=== PATIENT | male | born 1965 | race African-American/Black ===

== ENCOUNTER 2016-06-29 12:06 | Emergency (ER) | payer OTHER ==
[2016-06-29] MEDS ORDERED: LIDOCAINE-EPINEPH-TETRACAINE 3 ML SYRINGE TOP STA (13:46)
[2016-06-29] MEDS ORDERED: LIDOCAINE-EPINEPH-TETRACAINE 3 ML SYRINGE TOP ONE (14:05)
== END 2016-06-29 14:20 | disposition home or self-care (01) ==
DX: S09.90XA Unspecified injury of head, initial encounter (principal); S01.312A Laceration without foreign body of left ear, initial encounter; W24.0XXA Contact with lifting devices, not elsewhere classified, initial encounter; Y93.89 Activity, other specified; Y92.62 Dock or shipyard as the place of occurrence of the external cause; Y99.0 Civilian activity done for income or pay; R03.0 Elevated blood-pressure reading, without diagnosis of hypertension; M50.323 Other cervical disc degeneration at C6-C7 level; F17.200 Nicotine dependence, unspecified, uncomplicated
CPT/HCPCS: 1040M; 70450; 72125; 99283

== ENCOUNTER 2016-10-04 08:31 | Emergency (ER) | payer OTHER ==
--- NOTE | 2016-10-04 09:08 | ED Physician Documentation ---
PD HPI ABD PAIN - Stated complaint Stated Complaint: ABD,BACK PAIN - Chief complaint Chief Complaint: Abd Pain - History obtained from History obtained from: Patient - History of Present Illness Timing - onset: How many weeks ago (2-3 weeks of poor appetite, easy satiety, cramping upper abd pain with eating. This is worse the past few days and has noted 2 days of black/dark soft stools. No vomiting but has nausea. No fever.) Timing - details: Gradual onset, Still present (abruptly worse with GI bleeding the past 2 days.) Quality: Cramping, Aching, Pain Location: Epigastric, Periumbilical Radiation: No: Chest, Lower back, Upper back Improved by: Position. No: BM Worsened by: Eating, Position Associated symptoms: Nausea, Diarrhea, Melena, Loss of appetite (mild the past few weeks). No: Fever, Vomiting, Constipation, Hematochezia, Dysuria, Hematuria Similar symptoms before: Has not had sx before Recently seen: Not recently seen Review of Systems Constitutional: denies: Fever, Chills Nose: denies: Rhinorrhea / runny nose, Congestion Throat: denies: Sore throat Cardiac: denies: Chest pain / pressure Respiratory: denies: Dyspnea, Cough GI: reports: Abdominal Pain, Nausea, Bloody / black stool. denies: Abdominal Swelling, Vomiting : denies: Dysuria, Frequency Skin: denies: Rash, Lesions Musculoskeletal: denies: Neck pain, Back pain Neurologic: reports: Generalized weakness. denies: Focal weakness, Numbness, Near syncope Endocrine: reports: Weight loss. denies: Weight gain, Easy bruising / bleeding Immunocompromised: denies: Immunocompromised PD PAST MEDICAL HISTORY - Past Medical History Cardiovascular: None Respiratory: None Neuro: None Endocrine/Autoimmune: None GI: None, Other (denies history of liver disease, hepatitis, ulcers. ) - Past Surgical History Past Surgical History: No - Present Medications Home Medications: Ambulatory Orders Medication Instructions Recorded Confirmed No Known Home Medications [No 06/29/16 06/29/16 Known Home Medications] - Allergies Allergies/Adverse Reactions: Allergies Allergy/AdvReac Type Severity Reaction Status Date / Time No Known Drug Allergies Allergy Verified 06/29/16 12:33 - Social History Does the pt smoke?: Yes Smoking Status: Current every day smoker Does the pt drink ETOH?: Yes ETOH Use: Other (drinks beer occasionally, denies daily use) Does the pt have substance abuse?: No - Family History Family history: reports: Non contributory - Immunizations Immunizations are current?: Yes PD ED PE NORMAL - Vitals Vital signs reviewed: Yes - General General: Alert and oriented X 3, Well developed/nourished, Other (appears uncomfortable) - HEENT HEENT: PERRL (nonicteric), Ears normal, Pharynx benign. No: Moist mucous membranes - Neck Neck: Supple, no meningeal sign, No adenopathy, No JVD - Cardiac Cardiac: RRR (tachycardic), No murmur - Respiratory Respiratory: Clear bilaterally - Abdomen Abdomen: Soft, No organomegaly, Other (mild distension, with tenderness mid to upper abdomen. Decreased bowel sounds. ) - Male Male : Deferred - Rectal Rectal: Other (small external hemorrhoids, not thrombosed. Stool is soft in vault and is black to purple colored, obviously blood, strongly guiac positive. ) - Back Back: No CVA TTP - Derm Derm: Normal color, Warm and dry - Extremities Extremities: No tenderness to palpate, Normal ROM s pain, No edema, No calf tenderness / cord - Neuro Neuro: Alert and oriented X 3, No motor deficit, Normal speech - Psych Psych: Normal mood, Normal affect Results - Vitals Vitals: Vital Signs - 24 hr 10/04/16 10/04/16 10/04/16 08:34 10:30 11:52 Temperature 36.5 C Heart Rate 123 H 112 H 105 H Respiratory 18 18 18 Rate Blood Pressure 139/91 H 131/87 H 123/83 H O2 Saturation 100 97 100 10/04/16 13:34 Temperature Heart Rate 92 Respiratory 16 Rate Blood Pressure 128/94 H O2 Saturation 99 Oxygen O2 Source Room air - Labs Labs: Laboratory Tests 10/04/16 10/04/16 08:47 08:47 WBC 9.4 RBC 4.13 L Hgb 12.8 L Hct 37.5 L MCV 90.9 MCH 31.0 MCHC 34.1 RDW 14.0 Plt Count 210 MPV 8.4 Neut # 7.6 H Lymph # 0.9 L [place] # 0.9 Eos # 0.0 Baso # 0.0 Absolute Nucleated RBC 0.04 Nucleated RBCs 0.4 Sodium 136 Potassium 4.1 Chloride 101 Carbon Dioxide 23 Anion Gap 12.0 BUN 31 H Creatinine 1.4 H Estimated GFR (MDRD) 64 L Glucose 256 H Calcium 8.1 L Total Bilirubin 5.9 H AST 624 H ALT 675 H Alkaline Phosphatase 120 Total Protein 6.4 L Albumin 2.9 L Globulin 3.5 Albumin/Globulin Ratio 0.8 L Lipase 14 L - Rads (name of study) abd/pelvic CT Radiology: Prelim report reviewed, Discussed with rads (gastric mass, presume neoplasm. Adrenal adenoma (presume incidental). Liver appears normal. ) PD MEDICAL DECISION MAKING - ED course Complexity details: reviewed results, considered differential (concern for acute GI bleeding with melena. He is stable now (initial tachycardia though could be hydration too). Of concern is evaluation by CT shows gastric mass. This is still of concern for acute bleeding, but also has likelihood of needing gastric resection and oncologic approach. Also with elevated liver enzymes without obvious cause (not regular alcohol, not looking biliary on CT). 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 Talked with GI, then surgery at [facility], who defer to medical Hospitalist. Dr. White accepts transfer of the patient. ) Departure - Departure Disposition: 02 Transfer Acute Care Hosp Clinical Impression: Elevated liver enzymes, Acute upper GI bleeding, Gastric mass, Dehydration Condition: Stable Record reviewed to determine appropriate education?: Yes
[2016-10-04] MEDS ORDERED: FAMOTIDINE 20 MG/50 ML 50 ML IV ONE ×2 (09:32→09:41)
[2016-10-04] MEDS ORDERED: ONDANSETRON 4 MG/2 ML VIAL IVP STA (09:32)
[2016-10-04] MEDS ORDERED: MAG HYDROX/AL HYDROX/SIMETH 30 ML UDC PO STA (09:32)
[2016-10-04] MEDS ORDERED: HYDROmorphone 1 MG/ML SYRINGE IVP STA (09:32)
[2016-10-04] MEDS ORDERED: HYDROmorphone 1 MG/ML SYRINGE ONE (09:40)
[2016-10-04] MEDS ORDERED: MAG HYDROX/AL HYDROX/SIMETH 30 ML UDC ONE (09:40)
[2016-10-04] MEDS ORDERED: ONDANSETRON 4 MG/2 ML VIAL ONE (09:40)
[2016-10-04] MEDS ORDERED: SODIUM CHLORIDE 0.9% 1,000 ML IV ONE ×2 (10:04→13:29)
[2016-10-04 10:18] LABS: BASOPHILS % (AUTO) 0.5 %; EOSINOPHILS % (AUTO) 0.1 %; HCT - HEMATOCRIT 37.5 % (42.0-52.0); HGB - HEMOGLOBIN 12.8 g/dL (14.0-18.0); LYMPHOCYTES # (AUTO) 0.9 10^3/uL (1.5-3.5); LYMPHOCYTES % (AUTO) 9.2 %; MEAN CORPUSCULAR HGB CONC 34.1 g/dL (32.0-36.0); MEAN CORPUSCULAR VOLUME 90.9 fL (80.0-94.0); MEAN PLATELET VOLUME 8.4 fL (7.4-11.4); MONOCYTES # (AUTO) 0.9 10^3/uL (0.0-1.0); MONOCYTES % (AUTO) 9.2 %; NEUTROPHILS # (AUTO) 7.6 10^3/uL (1.5-6.6); NUCLEATED RED BLOOD CELLS AUTO 0.4 /100WBC; RED BLOOD COUNT 4.13 10^6/uL (4.70-6.10); UNCORRECTED WHITE BLOOD COUNT 9.4 x10^3/uL; WHITE BLOOD COUNT 9.4 x10^3/uL (4.8-10.8)
[2016-10-04 10:42] LABS: ALBUMIN/GLOBULIN RATIO 0.8 (1.0-2.2); BILIRUBIN,TOTAL 5.9 mg/dL (0.2-1.0); CALCIUM 8.1 mg/dL (8.5-10.3); CREATININE 1.4 mg/dL (0.6-1.2); POTASSIUM 4.1 mmol/L (3.5-5.0); TOTAL PROTEIN 6.4 g/dL (6.7-8.2)
--- NOTE | 2016-10-04 10:46 | CT Preliminary Report ---
Exam: CT Abdomen/Pelvis W/ Impression: Mass within the stomach. This may represent a gastrointestinal stromal tumor or other bay plastic process. This is unlikely to represent ingested material. Recommend GI consult for further ev aluation. Small left adrenal mass that most likely represents an adrenal adenoma. If there is a history of canc er, a dedicated CT of the adrenal glands may be beneficial. [facility] SITE ID: [id number]
--- NOTE | 2016-10-04 10:49 | CT Report ---
EXAM: CT ABDOMEN AND PELVIS EXAM DATE: 10/04/2016 10:17 AM. CLINICAL HISTORY: IV contrast, no oral. COMPARISONS: None. TECHNIQUE: Routine helical CT imaging was performed through the abdomen and pelvis. IV contrast: 100 cc of Isovue-300. Enteric contrast: No. Reconstructions: Coronal and sagittal. In accordance with CT protocol optimization, one or more of the following dose reduction techniques w ere utilized for this exam: automated exposure control, adjustment of mA and/or KV based on patient s ize, or use of iterative reconstructive technique. FINDINGS: The lung bases are without evidence of a mass or infiltrate. The liver is without evidence of an enhancing mass in the spleen, pancreas, and right adrenal gland a re normal in appearance and there is a small lesion in the left adrenal gland. It measures approximat rosaura 1.5 cm and 33 Hounsfield units. This most likely represents an adrenal adenoma. Kidneys are without evidence of an enhancing mass. There is no hydronephrosis. The appendix is normal in appearance. There is severe mass within the proximal stomach. It measures approximately 4.9 x 4.8 x 4.0 cm. This may represent a benign or malignant process. There are no dilated loops of bowel to suggest the presence of an obstruction. No mass or cyst is see n within the pelvis. No focal bony lesion is identified. Impression: Mass within the stomach. This may represent a gastrointestinal stromal tumor or other bay plastic process. This is unlikely to represent ingested material. Recommend GI consult for further ev aluation. Small left adrenal mass that most likely represents an adrenal adenoma. If there is a history of canc er, a dedicated CT of the adrenal glands may be beneficial. [facility] Referring Provider Line: [phone] SITE ID: [id number]
[2016-10-04] MEDS ORDERED: KETOROLAC 30 MG/ML VIAL ONE (11:12)
[2016-10-04] MEDS ORDERED: KETOROLAC 60 MG/2 ML VIAL IVP STA (11:12)
[2016-10-04 15:52] VITALS: BP 123/67
[2016-10-04] MEDS ORDERED: IOPAMIDOL-300 100 ML VIAL IVP ONE (22:14)
== END 2016-10-04 16:57 | disposition short-term general hospital (02) ==
LOC: ED 08:31
DX: E86.0 Dehydration (principal); K92.2 Gastrointestinal hemorrhage, unspecified; R19.06 Epigastric swelling, mass or lump; R74.8 Abnormal levels of other serum enzymes; F17.200 Nicotine dependence, unspecified, uncomplicated
CPT/HCPCS: 36415; 74177; 80053; 83690; 85025; 96361; 96374; 96375; 99284; 99285; A9270; Q9967

== ENCOUNTER 2016-10-04 16:55 | Outpatient (CLI) | payer SELFPAY | END 2016-10-04 16:56 | disposition home or self-care (01) | LOC: EMS 16:55 | PROVIDERS: ATTEND Surgery | DX: K92.2 Gastrointestinal hemorrhage, unspecified (principal) | CPT/HCPCS: A0425; A0426 ==

== ENCOUNTER 2016-10-12 09:40 | Emergency (ER) | payer SELFPAY ==
[2016-10-12 11:48] LABS: BASOPHILS % (AUTO) 0.3 %; EOSINOPHILS % (AUTO) 0.4 %; LYMPHOCYTES % (AUTO) 18.4 %; MEAN CORPUSCULAR HEMOGLOBIN 31.9 pg (27.0-31.0); MEAN CORPUSCULAR HGB CONC 31.8 g/dL (32.0-36.0); MEAN CORPUSCULAR VOLUME 100.3 fL (80.0-94.0); MEAN PLATELET VOLUME 6.8 fL (7.4-11.4); MONOCYTES % (AUTO) 13.3 %; NEUTROPHILS % (AUTO) 67.6 %; RED CELL DISTRIBUTION WIDTH 17.7 % (12.0-15.0); UNCORRECTED WHITE BLOOD COUNT 9.9 x10^3/uL; WHITE BLOOD COUNT 9.9 x10^3/uL (4.8-10.8)
[2016-10-12 11:50] LABS: HCT - HEMATOCRIT 19.1 % (42.0-52.0); HGB - HEMOGLOBIN 6.1 g/dL (14.0-18.0)
[2016-10-12 11:52] LABS: CALCIUM 8.1 mg/dL (8.5-10.3); CREATININE 0.7 mg/dL (0.6-1.2); POTASSIUM 3.1 mmol/L (3.5-5.0)
--- NOTE | 2016-10-12 11:52 | ED Physician Documentation ---
History of Present Illness - Stated complaint Stated Complaint: SWELLING - Chief complaint Chief Complaint: General - Additonal information Additional information: hx from pt and previously healthy 51 male seen in our ER 10/04 for melena, CT showed a gastric mass, pt was tranbsferred to [facility] and says he had CT scans and was dced on irona and prilosec dc on 10/05 10/06 he developed rapid palpitations and L shoulder pain when he walked around better with rest lasting a few min at a time not SOA no fever cough also his arms and legs have been swollen Review of Systems Constitutional: denies: Fever, Chills Cardiac: reports: Chest pain / pressure (L shoulder), Palpitations Respiratory: denies: Dyspnea, Cough GI: denies: Abdominal Pain, Nausea, Vomiting Musculoskeletal: reports: Extremity swelling Endocrine: denies: Easy bruising / bleeding Immunocompromised: denies: Immunocompromised PD PAST MEDICAL HISTORY - Past Medical History Cardiovascular: None Respiratory: None Neuro: None Endocrine/Autoimmune: None GI: None, Other (denies history of liver disease, hepatitis, ulcers. ) - Past Surgical History Past Surgical History: No - Present Medications Home Medications: Ambulatory Orders Medication Instructions Recorded Confirmed Ferrous Sulfate 1 tab PO DAILY 10/12/16 10/12/16 Omeprazole [PriLOSEC] 1 tab PO DAILY 10/12/16 10/12/16 - Allergies Allergies/Adverse Reactions: Allergies Allergy/AdvReac Type Severity Reaction Status Date / Time No Known Drug Allergies Allergy Verified 10/12/16 09:46 - Social History Does the pt smoke?: Yes Smoking Status: Current every day smoker Does the pt drink ETOH?: Yes Does the pt have substance abuse?: No - Immunizations Immunizations are current?: Yes PD ED PE NORMAL - Vitals Vital signs reviewed: Yes - General General: Alert and oriented X 3 - Cardiac Cardiac: RRR - Respiratory Respiratory: No respiratory distress - Abdomen Abdomen: Soft, Non tender - Derm Derm: Normal color - Extremities Extremities: Other (mild to moderate edema of arms and legs) - Neuro Neuro: Alert and oriented X 3, No motor deficit Results - Vitals Vitals: Vital Signs - 24 hr 10/12/16 10/12/16 10/12/16 09:43 12:13 13:14 Temperature 36.3 C L Heart Rate 89 76 78 Respiratory 18 16 14 Rate Blood Pressure 142/91 H 122/75 122/75 O2 Saturation 98 100 96 10/12/16 10/12/16 10/12/16 14:01 15:53 16:52 Temperature 37.2 C 37.1 C Heart Rate 79 86 100 Respiratory 16 20 18 Rate Blood Pressure 125/82 H 128/84 H 150/91 H O2 Saturation 99 100 100 10/12/16 17:07 Temperature 37.2 C Heart Rate 101 H Respiratory 16 Rate Blood Pressure 126/82 H O2 Saturation 100 Oxygen O2 Source Room air - EKG (time done) 1149 Rate: Rate (enter#) Rhythm: NSR Ischemia: Non specific changes (slight TWI across precordial leads) - Labs Labs: Laboratory Tests 10/12/16 10/12/16 10/12/16 11:35 11:35 11:35 WBC 9.9 RBC 1.90 L Hgb 6.1 L* Hct 19.1 L* MCV 100.3 H MCH 31.9 H MCHC 31.8 L RDW 17.7 H Plt Count 343 MPV 6.8 L Neut # Not Reportable Lymph # Not Reportable [place] # Not Reportable Eos # Not Reportable Baso # Not Reportable Absolute Nucleated RBC Not Reportable Total Counted 100 Band Neuts % (Manual) 7 Metamyelocytes % 1 H Neutrophils # (Manual) 7.5 H Lymphocytes # (Manual) 2.0 Monocytes # (Manual) 0.3 Nucleated RBCs 3 Differential Comment MANUAL DIFFERENTIAL Platelet Estimate NORMAL (130-450,000) Platelet Morphology NORMAL APPEARANCE RBC Morph Micro Appear 2+ SCHISTOCYTES Sodium 138 Potassium 3.1 L Chloride 104 Carbon Dioxide 25 Anion Gap 9.0 BUN 9 Creatinine 0.7 Estimated GFR (MDRD) 143 Glucose 136 H Calcium 8.1 L Troponin I < 0.04 B-Natriuretic Peptide Blood Type Blood Type Recheck Antibody Screen Crossmatch IS Only 10/12/16 10/12/16 10/12/16 11:35 14:10 15:53 WBC RBC Hgb Hct MCV MCH MCHC RDW Plt Count MPV Neut # Lymph # [place] # Eos # Baso # Absolute Nucleated RBC Total Counted Band Neuts % (Manual) Metamyelocytes % Neutrophils # (Manual) Lymphocytes # (Manual) Monocytes # (Manual) Nucleated RBCs Differential Comment Platelet Estimate Platelet Morphology RBC Morph Micro Appear Sodium Potassium Chloride Carbon Dioxide Anion Gap BUN Creatinine Estimated GFR (MDRD) Glucose Calcium Troponin I B-Natriuretic Peptide 289 H Blood Type O POSITIVE Blood Type Recheck O POSITIVE Antibody Screen NEGATIVE Crossmatch IS Only See Detail PD MEDICAL DECISION MAKING - ED course ED course: pt has dropped his hgb to 6 although his EKG and trop are non specific and neg respectively, his L shoulder pain and palp with exertion are likely anginal reviewed records from [facility] - pt had EGD which showed 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 and there was still a concern for malignancy and surgical resection was rec but felt safe to defer to future date , pt Hgb dropped from 12 in our ER to 8.3 prior to dc, was not seen to have more bleeding, was txed with IV iron and was dced on iron and PPI unfortunately it seems he has bled more and is now symptomatically anemic with anginal sx will need transfer back to tertiary care Departure - Departure Disposition: 02 Transfer Acute Care Hosp Clinical Impression: Gastric mass Profound anemia Qualifiers: Anemia type: other cause Other causes of anemia: acute posthemorrhagic Qualified Code(s): D62 - Acute posthemorrhagic anemia GI bleed Qualifiers: GI bleed type/associated pathology: gastritis Gastritis type: other gastritis Qualified Code(s): K29.61 - Other gastritis with bleeding Chest pain Qualifiers: Chest pain type: unspecified Qualified Code(s): R07.9 - Chest pain, unspecified Condition: Serious Discharge Date/Time: 10/12/16 17:12
--- NOTE | 2016-10-12 12:18 | XRAY Preliminary Report ---
Exam: XR Chest 2 View PA/LAT IMPRESSION: Normal 2-view chest radiography. [facility] SITE ID: [id number]
--- NOTE | 2016-10-12 12:20 | XRAY Report ---
EXAM: CHEST RADIOGRAPHY EXAM DATE: 10/12/2016 11:52 AM. CLINICAL HISTORY: Left shoulder pain and shortness of breath for 4 days COMPARISON: None. TECHNIQUE: 2 views. FINDINGS: Lungs/Pleura: No focal opacities evident. No pleural effusion. No pneumothorax. Normal volumes. Mediastinum: Heart and mediastinal contours are unremarkable. Other: None. IMPRESSION: Normal 2-view chest radiography. [facility] Referring Provider Line: [phone] SITE ID: [id number]
[2016-10-12 12:37] LABS: BAND NEUTROPHILS % (MANUAL) 7 %; LYMPHOCYTES % (MANUAL) 20 %; NEUTROPHILS % (MANUAL) 69 %; TOTAL CELLS COUNTED 100
[2016-10-12 12:41] LABS: NP AUTO DIFFERENTIAL? YES; NP MAN DIFFERENTIAL? NO; PLATELET ESTIMATE, MANUAL NORMAL (130-450,000) (NORMAL); PLATELET MORPHOLOGY NORMAL APPEARANCE (NORMAL)
[2016-10-12 17:08] VITALS: BP 126/82
== END 2016-10-12 17:12 | disposition short-term general hospital (02) ==
LOC: ED 09:40
DX: R19.06 Epigastric swelling, mass or lump (principal); K92.2 Gastrointestinal hemorrhage, unspecified; D50.0 Iron deficiency anemia secondary to blood loss (chronic); F17.200 Nicotine dependence, unspecified, uncomplicated
CPT/HCPCS: 36415; 36430; 71020; 80048; 83880; 84484; 85025; 86850; 86900; 86901; 86920; 93005; 93010; 99284; P9016

== ENCOUNTER 2016-10-12 17:14 | Outpatient (CLI) | payer SELFPAY | END 2016-10-12 17:15 | disposition short-term general hospital (02) | LOC: EMS 17:14 | PROVIDERS: ATTEND Surgery | DX: K92.2 Gastrointestinal hemorrhage, unspecified (principal); R19.00 Intra-abdominal and pelvic swelling, mass and lump, unspecified site | CPT/HCPCS: A0425; A0426 ==

== ENCOUNTER 2020-06-07 09:32 | Outpatient (CLI) | payer MEDICAID ==
[2020-06-07 09:57] LABS: BASOPHILS # (AUTO) 0.1 10^3/uL (0.0-0.1); EOSINOPHILS # (AUTO) 0.2 10^3/uL (0.0-0.7); EOSINOPHILS % (AUTO) 2.9 %; HGB - HEMOGLOBIN 13.5 g/dL (14.0-18.0); LYMPHOCYTES # (AUTO) 1.8 10^3/uL (1.5-3.5); LYMPHOCYTES % (AUTO) 26.4 %; MEAN CORPUSCULAR HEMOGLOBIN 29.7 pg (27.0-31.0); MEAN CORPUSCULAR HGB CONC 31.3 g/dL (32.0-36.0); MEAN CORPUSCULAR VOLUME 94.9 fL (80.0-94.0); MONOCYTES # (AUTO) 0.6 10^3/uL (0.0-1.0); NEUTROPHILS # (AUTO) 4.2 10^3/uL (1.5-6.6); NEUTROPHILS % (AUTO) 60.4 %; PLT - PLATELET COUNT 332 10^3/uL (130-450); RED BLOOD COUNT 4.55 10^6/uL (4.70-6.10); RED CELL DISTRIBUTION WIDTH 13.1 % (12.0-15.0); WHITE BLOOD COUNT 6.9 x10^3/uL (4.8-10.8)
[2020-06-07 10:14] LABS: ALBUMIN 4.1 g/dL (3.2-5.5); ALKALINE PHOSPHATASE 109 IU/L (42-121); ALT ALANINE AMINOTRANSFERASE 36 IU/L (10-60); AST ASPARTATE AMINOTRANSFERASE 37 IU/L (10-42); BILIRUBIN,TOTAL 0.8 mg/dL (0.2-1.0); BUN - BLOOD UREA NITROGEN 13 mg/dL (6-20); CALCIUM 9.5 mg/dL (8.5-10.3); CARBON DIOXIDE - CO2 28 mmol/L (21-32); CHLORIDE 103 mmol/L (101-111); CHOL/HDL RATIO 2.9 (<5.0); CHOLESTEROL 219 mg/dL; CREATININE 0.9 mg/dL (0.6-1.2); GLUCOSE 118 mg/dL (70-100); HDL CHOLESTEROL 75 mg/dL; LDL CHOLESTEROL,CALCULATED 120 mg/dL; LDL/HDL RATIO 1.6 (<3.6); TOTAL PROTEIN 8.1 g/dL (6.7-8.2); VLDL CHOLESTEROL 24 mg/dL
== END 2020-06-07 09:33 | disposition home or self-care (01) ==
LOC: LAB 09:32
PROVIDERS: ATTEND Physician Assistant
DX: R25.2 Cramp and spasm (principal); I10 Essential (primary) hypertension; E66.9 Obesity, unspecified
CPT/HCPCS: 36415; 80053; 80061; 83721; 84153; 84443; 85025

== ENCOUNTER 2020-06-19 06:59 | Emergency (ER) | payer MEDICAID ==
[2020-06-19] MEDS ORDERED: CHERRY SYRUP 10 ML UDC PO ONE (07:57)
[2020-06-19] MEDS ORDERED: DEXAMETHASONE 10 MG/ML VIAL PO STA (07:57)
--- NOTE | 2020-06-19 08:04 | ED Physician Documentation ---
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 He has had migrating hives and denies any shortness of breath he stopped his medications 2 days ago he continues to have some hives migrating and he has come to the emergency department now for evaluation. He almost came in the middle of the night when his feet were itching so bad. Review of Systems Constitutional: denies: Fever Eyes: denies: Decreased vision Ears: denies: Ear pain Nose: denies: Congestion Throat: denies: Sore throat Cardiac: denies: Chest pain / pressure, Palpitations Respiratory: denies: Dyspnea, Cough GI: denies: Abdominal Pain, Nausea, Vomiting, Diarrhea : denies: Dysuria, Frequency Skin: reports: Rash Musculoskeletal: denies: Neck pain, Back pain, Extremity pain Neurologic: denies: Generalized weakness, Focal weakness, Numbness PD PAST MEDICAL HISTORY - Past Medical History Past Medical History: Yes Cardiovascular: Hypertension Respiratory: None Neuro: None Endocrine/Autoimmune: None GI: None, Other : None HEENT: None Psych: None Musculoskeletal: None Derm: None - Past Surgical History Past Surgical History: No - Present Medications Home Medications: Ambulatory Orders Medication Instructions Recorded Confirmed Losartan [Cozaar] 50 mg PO DAILY 06/19/20 06/19/20 Pantoprazole [Protonix] 20 mg PO DAILY 06/19/20 06/19/20 - Allergies Allergies/Adverse Reactions: Allergies Allergy/AdvReac Type Severity Reaction Status Date / Time No Known Drug Allergies Allergy Verified 06/19/20 07:10 - Social History Does the pt smoke?: Yes Smoking Status: Current every day smoker Does the pt drink ETOH?: Yes Does the pt have substance abuse?: No - Immunizations Immunizations are current?: Yes - POLST Patient has POLST: No PD ED PE NORMAL - Vitals Vital signs reviewed: Yes (Hypertensive) - General General: Alert and oriented X 3, No acute distress, Well developed/nourished - HEENT HEENT: Atraumatic, PERRL, EOMI, Ears normal, Other (The mucous membranes are moist there is some mild general swelling to the posterior pharynx without exudate) - Neck Neck: Supple, no meningeal sign, No bony TTP - Cardiac Cardiac: RRR, No murmur - Respiratory Respiratory: No respiratory distress, Clear bilaterally - Abdomen Abdomen: Soft, Non tender - Back Back: No CVA TTP, No spinal TTP - Derm Derm: Normal color, Warm and dry, Other (There are urticaria over the entire body that are migrating and not fulminant.) - Extremities Extremities: No deformity, No edema - Neuro Neuro: Alert and oriented X 3, 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 2-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, No motor deficit, No sensory deficit, Normal speech Eye Opening: Spontaneous Motor: Obeys Commands Verbal: Oriented GCS Score: 15 - Psych Psych: Normal mood, Normal affect Results - Vitals Vitals: Vital Signs - 24 hr 06/19/20 07:08 Temperature 36.5 C Heart Rate 90 Respiratory 17 Rate Blood Pressure 197/102 H O2 Saturation 99 Oxygen O2 Source Room air PD MEDICAL DECISION MAKING - ED course Complexity details: reviewed old records, considered differential, d/w patient ED course: 55-year-old male recently put on losartan has developed urticaria I think he has some angioedema to his uvula and he is administered dexamethasone 10 mg orally and we will asked him to take Benadryl 25 mg every 6 hours for the next 2 days. He is on both losartan and pantoprazole and I suspect losartan is the culprit i n this just because of the slight amount of angioedema to the uvula. Departure - Departure Disposition: 01 Home, Self Care Clinical Impression: Allergic reaction caused by a drug Qualifiers: Encounter type: initial encounter Qualified Code(s): T78.40XA - Allergy, unspecified, initial encounter Condition: Stable Instructions: ED Drug React Allergic Follow-Up: MEET HUGHES PA-C [Primary Care Provider] - Comments: Today it appears you are having an allergic reaction to the losartan. My recommendation is to discontinue both of the medications you have recently started the losartan and the pantoprazole and take Benadryl 25 mg every 6 hours for the next 2 days. You have been given a dose of dexamethasone here in the emergency department and the expectation is that your hives will improve dramatically over the next several hours. Today in the Emergency Department your blood pressure was elevated. This can happen from the stress of the visit itself, from a current illness or circumstance or from uncontrolled hypertension. Have your blood pressure re- checked in an appropriate setting and follow up any elevation with your primary care doctor.
[2020-06-19 08:19] VITALS: BP 146/92
== END 2020-06-19 08:19 | disposition home or self-care (01) ==
LOC: ED 06:59
DX: L50.0 Allergic urticaria (principal); T46.5X5A Adverse effect of other antihypertensive drugs, initial encounter; I10 Essential (primary) hypertension; F17.200 Nicotine dependence, unspecified, uncomplicated
CPT/HCPCS: 99282; 99284; A9270

== ENCOUNTER 2020-11-20 09:21 | Outpatient (CLI) | payer MEDICAID ==
[2020-11-20 14:16] LABS: ESTIMATED AVERAGE GLUCOSE 128 mg/dL (70-100); HEMOGLOBIN A1c% 6.1 % (4.27-6.07)
== END 2020-11-20 09:22 | disposition home or self-care (01) ==
LOC: LAB.N 09:21
PROVIDERS: ATTEND Physician Assistant
DX: R73.9 Hyperglycemia, unspecified (principal)
CPT/HCPCS: 36415; 83036

== ENCOUNTER 2021-08-12 16:21 | Outpatient (CLI) | payer MEDICAID ==
--- NOTE | 2021-08-12 16:58 | XRAY Report ---
PROCEDURE: Lumbar Spine 2 View INDICATIONS: BACK PAIN TECHNIQUE: 3 views of the lumbar spine were acquired. COMPARISON: None. FINDINGS: Bones: 5 [id number] vertebrae are present. There is loss of normal lumbar lordosis. Multilevel disc sp marti narrowing and endplate osteophyte formation. Facet hypertrophy throughout the mid and lower lumba r spine. No vertebral body compression fractures. No suspicious bony lesions. Soft tissues: Overlying bowel gas pattern is normal. No suspicious soft tissue calcifications. IMPRESSION: Multilevel degenerative disc and facet disease. No acute fracture. No osseous lesion. If symptoms and/or clinical suspicion for pathology continue, further assessment with repeat plain film s, or advanced imaging (e.g., CT, MRI, or bone scan) is recommended for further assessment. Reviewed by: Maggie Grove MD on 08/12/2021 4:57 PM PDT Approved by: Maggie Grove MD on 08/12/2021 4:57 PM PDT Station ID: [id number]
== END 2021-08-12 16:22 | disposition home or self-care (01) ==
LOC: DI.N 16:21
PROVIDERS: ATTEND Internal Medicine
DX: M47.816 Spondylosis without myelopathy or radiculopathy, lumbar region (principal); M51.36 Other intervertebral disc degeneration, lumbar region

== ENCOUNTER 2021-10-24 10:44 | Outpatient (CLI) | payer MEDICAID ==
--- NOTE | 2021-10-24 15:56 | XRAY Report ---
PROCEDURE: Chest 2 View X-Ray INDICATIONS: SOB TECHNIQUE: 2 view(s) of the chest. COMPARISON: Chest x-ray, 2 views, 10/12/2016. FINDINGS: Surgical changes and devices: None. Lungs and pleura: There are respiratory motions. No pleural effusions or pneumothorax. Lungs are cl ear. Mediastinum: Mediastinal contours are normal. Heart size is normal. Bones and chest wall: No suspicious bony abnormalities. Soft tissues appear unremarkable. IMPRESSION: No acute cardiopulmonary disease. Reviewed by: Dayanna Allan MD on 10/24/2021 3:54 PM PDT Approved by: Dayanna Allan MD on 10/24/2021 3:54 PM PDT Station ID: [id number]
== END 2021-10-24 10:45 | disposition home or self-care (01) ==
LOC: DI.N 10:44
PROVIDERS: ATTEND Physician Assistant
DX: R06.02 Shortness of breath (principal); Z13.220 Encounter for screening for lipoid disorders; R73.9 Hyperglycemia, unspecified; I48.91 Unspecified atrial fibrillation
CPT/HCPCS: 36415; 80053; 80061; 83036; 83721; 83880; 84443; 85025

== ENCOUNTER 2021-10-24 10:52 | Outpatient (CLI) | payer MEDICAID ==
[2021-10-24 17:52] LABS: BASOPHILS % (AUTO) 0.5 %; EOSINOPHILS # (AUTO) 0.1 10^3/uL (0.0-0.7); EOSINOPHILS % (AUTO) 0.6 %; HCT - HEMATOCRIT 39.1 % (42.0-52.0); HGB - HEMOGLOBIN 12.1 g/dL (14.0-18.0); LYMPHOCYTES # (AUTO) 2.1 10^3/uL (1.5-3.5); LYMPHOCYTES % (AUTO) 24.2 %; MEAN CORPUSCULAR HEMOGLOBIN 26.9 pg (27.0-31.0); MEAN CORPUSCULAR HGB CONC 30.9 g/dL (32.0-36.0); MEAN CORPUSCULAR VOLUME 86.9 fL (80.0-94.0); MONOCYTES # (AUTO) 0.9 10^3/uL (0.0-1.0); MONOCYTES % (AUTO) 9.9 %; NEUTROPHILS # (AUTO) 5.6 10^3/uL (1.5-6.6); NEUTROPHILS % (AUTO) 64.5 %; PLT - PLATELET COUNT 368 10^3/uL (130-450); RED CELL DISTRIBUTION WIDTH 17.6 % (12.0-15.0); WHITE BLOOD COUNT 8.7 x10^3/uL (4.8-10.8)
[2021-10-24 18:17] LABS: ALBUMIN 4.1 g/dL (3.2-5.5); ALKALINE PHOSPHATASE 144 IU/L (42-121); ALT ALANINE AMINOTRANSFERASE 22 IU/L (10-60); AST ASPARTATE AMINOTRANSFERASE 25 IU/L (10-42); BILIRUBIN,TOTAL 0.5 mg/dL (0.2-1.0); BUN - BLOOD UREA NITROGEN 26 mg/dL (6-20); CALCIUM 9.2 mg/dL (8.5-10.3); CARBON DIOXIDE - CO2 23 mmol/L (21-32); CHLORIDE 108 mmol/L (101-111); CHOL/HDL RATIO 5.2 (<5.0); CHOLESTEROL 191 mg/dL; CREATININE 1.3 mg/dL (0.6-1.2); GFR - MDRD 69 (>89); GLUCOSE 112 mg/dL (70-100); HDL CHOLESTEROL 37 mg/dL; LDL CHOLESTEROL,CALCULATED 122 mg/dL; LDL/HDL RATIO 3.3 (<3.6); POTASSIUM 4.6 mmol/L (3.5-5.0); SODIUM 141 mmol/L (135-145); TOTAL PROTEIN 8.1 g/dL (6.7-8.2); TRIGLYCERIDES 162 mg/dL; VLDL CHOLESTEROL 32 mg/dL
[2021-10-24 18:28] LABS: THYROID STIMULATING HORMONE 0.78 uIU/mL (0.34-5.60)
[2021-10-24 18:51] LABS: ESTIMATED AVERAGE GLUCOSE 148 mg/dL (70-100); HEMOGLOBIN A1c% 6.8 % (4.27-6.07)
== END 2021-10-24 10:53 | disposition home or self-care (01) ==
LOC: LAB.N 10:52
PROVIDERS: ATTEND Physician Assistant
DX: R06.02 Shortness of breath (principal); Z13.220 Encounter for screening for lipoid disorders; R73.9 Hyperglycemia, unspecified; I48.91 Unspecified atrial fibrillation
CPT/HCPCS: 36415; 80053; 80061; 83036; 83721; 83880; 84443; 85025

== ENCOUNTER 2021-11-01 10:34 | Outpatient (CLI) | payer MEDICAID ==
--- NOTE | 2021-11-01 16:52 | CT Report ---
PROCEDURE: Low Dose Lung Cancer Screen INDICATIONS: TOBACCO USE TECHNIQUE: Noncontrast low-dose images were acquired from the pulmonary apices to the posterior costophrenic ang les. Multiplanar MIP reformats were then acquired. For radiation dose reduction, the following was used: automated exposure control, adjustment of mA and/or kV according to patient size. COMPARISON: None. FINDINGS: Image quality: Excellent. Lungs and pleura: In the right upper lobe, there are 3 separate small triangular pulmonary perifissu al nodules associated with the minor fissure on image 4/166, 4/155 and 4/157, each measuring 3 mm or less. This also a small focus of atelectasis noted in the right middle lobe anteriorly associated wit h minimal scarring. Otherwise, no focal infiltrate tip. The pleural spaces clear. No adenopathy. Mediastinum: Heart size is normal. No pericardial effusion. No mediastinal adenopathy by size crit eria. Thoracic aorta and central pulmonary arteries are normal in size. Esophagus is normal in camilo javid. No hiatal hernia. Bones and chest wall: No suspicious bony lesions. No vertebral body compression fractures. No axil shakira or supraclavicular adenopathy by size criteria. The thyroid is normal in size and there are no incidental findings. Abdomen: Visualized upper abdomen solid organs and bowel loops appear normal in the absence of contr ast. Prior gastric surgery noted. IMPRESSION: 1. Small 3mm right middle lobe perifissual nodules Lung RADS category 2: Benign. Continue annual screening in 12 months Reviewed by: Ronen Wray MD on 11/01/2021 3:51 PM AKDT Approved by: Ronen Wray MD on 11/01/2021 3:51 PM AKDT Station ID: [id number]
== END 2021-11-01 10:35 | disposition home or self-care (01) ==
LOC: DI 10:34
PROVIDERS: ATTEND Physician Assistant
DX: Z12.2 Encounter for screening for malignant neoplasm of respiratory organs (principal); R91.8 Other nonspecific abnormal finding of lung field; Z72.0 Tobacco use

== ENCOUNTER 2022-02-24 06:23 | Inpatient (IN) | payer MEDICAID ==
[2022-02-24] MEDS ORDERED: LACTATED RINGERS 1,000 ML IV ONE (06:58)
[2022-02-24] MEDS ORDERED: PROPOFOL 500 MG/50 ML 500 MG/50 ML VIAL ONE (07:08)
[2022-02-24] MEDS ORDERED: MIDAZOLAM 2 MG/2 ML VIAL ONE ×2 (07:09→08:58)
--- NOTE | 2022-02-24 07:21 | ANESTHESIA ---
Pre-Anesthesia VS, & Labs - Diagnosis gastric tumor, positive fit test - Procedure EGD, colonoscopy Vital Signs: Temp Pulse Resp BP Pulse Ox O2 Flow Rate 37 C 90 18 132/86 H 99 02/24/22 06:43 02/24/22 06:43 02/24/22 06:43 02/24/22 06:43 02/24/22 06:43 Height: 5 ft 9 in Weight (kg): 102.5 kg Body Mass Index: 33.3 BMI Classification: Obese - NPO >8 hours - Lab Results Lab results reviewed: No Home Medications and Allergies Home Medications: Ambulatory Orders Amlodipine Besylate [Norvasc] 10 mg PO DAILY 02/20/22 Benazepril HCl 40 mg PO DAILY 02/20/22 Metoprolol Tartrate [Lopressor] 50 mg PO BID 02/20/22 Omeprazole Magnesium 20 mg PO DAILY PRN 02/20/22 Rivaroxaban [Xarelto] 20 mg PO QPM 02/20/22 Amlodipine Besylate [Norvasc] 10 mg PO DAILY 02/20/22 Benazepril HCl 40 mg PO DAILY 02/20/22 Metoprolol Tartrate [Lopressor] 50 mg PO BID 02/20/22 Omeprazole Magnesium 20 mg PO DAILY PRN 02/20/22 Rivaroxaban [Xarelto] 20 mg PO QPM 02/20/22 Allergies/Adverse Reactions: Allergies Allergy/AdvReac Type Severity Reaction Status Date / Time losartan Allergy Hives Verified 02/20/22 12:21 Anes History & Medical History - Anesthetic History Anesthesia Complications: reports: No previous complications Family history of Anesthesia Complications: Denies Family history of Malignant Hyperthermia: Denies - Medical History Cardiovascular: reports: Hypertension, Atrial fibrillation Pulmonary: reports: Sleep apnea Gastrointestinal: reports: GERD, Other Urinary: reports: None Neuro: reports: None Musculoskeletal: reports: Osteoarthritis, Chronic back pain Endocrine/Autoimmune: reports: None Blood Disorders: reports: None Skin: reports: None Smoking Status: Current every day smoker (1/2 PPD x 20 years) Psychosocial: reports: No issues indicated History of Cancer?: Yes (gastric CA) - Surgical History General: reports: Gastric surgery (gastric tumor removal), EGD, Other Exam General: Alert, Oriented x3, Cooperative, No acute distress Dental: Poor dentition, Other (missing teeth, multiple) Mouth Opening: Greater than 4 Fingerbreadths Neck Mobility: Normal Mallampati classification: I Thyromental Distance: less than 4 cm Cardiovascular: Regular rate Mental/Cognitive Status: Alert/Oriented X3, Normal for patient Cognitive Status: Within normal limits Plan Anesthesia Type: General, Total IV Consent for Procedure(s) Verified and Reviewed: Yes Code Status: Attempt Resuscitation ASA classification: 3-Severe systemic disease Is this case an emergency?: No
--- NOTE | 2022-02-24 07:28 | HISTORY & PHYSICAL EXAMINATION ---
Chief Complaint - Chief Complaint Chief Complaint: blood per rectum History of Present Illness - History Obtained From Records Reviewed: yes History obtained from: pt Exam Limitations: none - History of Present Illness HPI Comment/Other: history benign gastric tumor and recently blood into toilet. History - Past Medical History Cardiovascular: reports: Hypertension, Atrial fibrillation Respiratory: reports: Sleep apnea Neuro: reports: None Endocrine/Autoimmune: reports: None GI: reports: GERD, Other : reports: None HEENT: reports: Chronic vision loss Psych: reports: None Musculoskeletal: reports: Osteoarthritis, Chronic back pain Derm: reports: None MRSA Hx?: No - Past Surgical History General: reports: Gastric surgery (gastric tumor removal), EGD, Other - POLST Patient has POLST: No Meds/Allgy - Home Medications Home Medications: Ambulatory Orders Medication Instructions Recorded Confirmed Amlodipine Besylate [Norvasc] 10 mg PO DAILY 02/20/22 02/24/22 Benazepril HCl 40 mg PO DAILY 02/20/22 02/24/22 Metoprolol Tartrate [Lopressor] 50 mg PO BID 02/20/22 02/24/22 Omeprazole Magnesium 20 mg PO DAILY PRN 02/20/22 02/24/22 Rivaroxaban [Xarelto] 20 mg PO QPM 02/20/22 02/24/22 - Allergies Allergies/Adverse Reactions: Allergies Allergy/AdvReac Type Severity Reaction Status Date / Time losartan Allergy Hives Verified 02/20/22 12:21 Review of Systems - Other Findings Other Findings: 10 pt ros as above otherwise unremarkable Exam - Vital Signs Reviewed Vital Signs: Yes Vital Signs: Vital Signs x48h Temp Pulse Resp BP Pulse Ox 02/24/22 06:43 37 C 90 18 132/86 H 99 - Physical Exam General Appearance: positive: No acute distress, Alert Eyes Bilateral: positive: PERRL, EOMI, No scleral icterus ENT: positive: No signs of dehydration Neck: positive: No JVD, Trachea midline Respiratory: positive: No respiratory distress, Breath sounds nml Cardiovascular: positive: Regular rate & rhythm Abdomen: positive: Non-tender, No distention Neurologic/Psychiatric: positive: Oriented x3 Conclusion/Plan - Problem List (1) Gastric mass Conclusion/Plan: history benign gastric tumor. plan egd for surveillance blood into toilet with bm. plan diagnostic colonoscopy parq held and consent obtained - Lab Results Lab results reviewed: No
[2022-02-24] MEDS ORDERED: SUCCINYLCHOLINE 200 MG/10 ML VIAL ONE (07:48)
[2022-02-24] MEDS ORDERED: fentaNYL 100 MCG/2 ML VIAL ONE ×2 (08:08→09:03)
[2022-02-24 08:40] LABS: BASOPHILS # (AUTO) 0.1 10^3/uL (0.0-0.1); BASOPHILS % (AUTO) 0.7 %; EOSINOPHILS # (AUTO) 0.2 10^3/uL (0.0-0.7); EOSINOPHILS % (AUTO) 1.7 %; HCT - HEMATOCRIT 28.3 % (42.0-52.0); HGB - HEMOGLOBIN 8.8 g/dL (14.0-18.0); LYMPHOCYTES # (AUTO) 2.4 10^3/uL (1.5-3.5); LYMPHOCYTES % (AUTO) 26.4 %; MEAN CORPUSCULAR HEMOGLOBIN 27.8 pg (27.0-31.0); MEAN CORPUSCULAR HGB CONC 31.1 g/dL (32.0-36.0); MEAN CORPUSCULAR VOLUME 89.6 fL (80.0-94.0); MEAN PLATELET VOLUME 9.2 fL (7.4-11.4); NEUTROPHILS # (AUTO) 5.5 10^3/uL (1.5-6.6); NEUTROPHILS % (AUTO) 59.7 %; PLT - PLATELET COUNT 363 10^3/uL (130-450); RED BLOOD COUNT 3.16 10^6/uL (4.70-6.10); RED CELL DISTRIBUTION WIDTH 16.2 % (12.0-15.0); WHITE BLOOD COUNT 9.2 x10^3/uL (4.8-10.8)
[2022-02-24] MEDS ORDERED: ONDANSETRON 4 MG/2 ML VIAL IVP PRN (08:52)
[2022-02-24] MEDS ORDERED: ONDANSETRON ODT 4 MG TABLET TL PRN (08:52)
--- NOTE | 2022-02-24 08:52 | XRAY Report ---
PROCEDURE: Chest for Line Placement INDICATIONS: VERIFY ETT PLACEMENT TECHNIQUE: One view of the chest was acquired. COMPARISON: 10/24/2021 FINDINGS: Surgical changes and devices: ET tube terminates in appropriate position. Lungs and pleura: Diffuse lung disease, left greater than right. Probable superimposed effusion. Low lung volumes. Mediastinum: Heart borders are obscured. Bones and chest wall: No suspicious bony lesions. Overlying soft tissues appear unremarkable. IMPRESSION: Limited single view chest radiograph demonstrates ET tube in appropriate position. Almost no aeration of the left lung, likely with superimposed effusion. There is also mild diffuse right lung disease. Low lung volumes. Reviewed by: Eduardo Dunn MD on 02/24/2022 8:50 AM PDT Approved by: Eduardo Dunn MD on 02/24/2022 8:50 AM PDT Station ID: [id number]
[2022-02-24 08:55] LABS: ALBUMIN 3.3 g/dL (3.2-5.5); ALBUMIN/GLOBULIN RATIO 1.1 (1.0-2.2); BILIRUBIN,TOTAL 0.4 mg/dL (0.2-1.0); CALCIUM 8.1 mg/dL (8.5-10.3); CREATININE 1.5 mg/dL (0.6-1.2); POTASSIUM 4.3 mmol/L (3.5-5.0); TOTAL PROTEIN 6.3 g/dL (6.7-8.2)
[2022-02-24] MEDS ORDERED: SUGAMMADEX 200 MG/2 ML VIAL IVP ONE (08:59)
[2022-02-24] MEDS ORDERED: PROPOFOL 200 MG/20 ML VIAL IVP ONE ×2 (09:01→12:06)
[2022-02-24] MEDS ORDERED: iohexoL-300 100 ML VIAL ONE (09:05)
--- NOTE | 2022-02-24 09:12 | OPERATIVE REPORT ---
Operative Report - General Admit Date: 02/24/22 Procedure Date: 02/24/22 Planned Procedure: egd and colonoscopy Pre-Op Diagnosis: history benign gastric tumor and recent blood per rectum Procedure Performed: none Post Op Diagnosis: hypoxia after sedation. possible aspiration - Procedure Note Primary Surgeon: garfield lovett md Anesthesia Technique: General ET tube, Other Pathology: none Estimated Blood Loss (mL): 0 Drain/Tube Type: Other (none) Indications: as above Findings: left chest 90 % maude out on cxr Complications: as above. hypoxia after sedation - Other Other Information/Narrative: after light sedation he had an uncontrolled cough and significant salivary secretions. no emesis and no apparent aspiration. the egd scope was never placed further than the mouth. procedures aborted due to coughing followed by low sats
[2022-02-24] MEDS ORDERED: PROPOFOL 1000 MG/100 ML 1,000 MG/100 ML BOTTLE IV ONE (09:28)
[2022-02-24] MEDS ORDERED: NOREPINEPHRINE/D5W 8 MG/250 ML BAG IV ONE ×2 (09:42→10:00)
[2022-02-24] MEDS: SODIUM CHLORIDE FLUSH 0.9% 10 ML SYRINGE IVP SCH ×2 (10:07→13:12)
[2022-02-24] MEDS: LACTATED RINGERS 1,000 ML IV SCH ×2 (10:07→21:20)
[2022-02-24] MEDS: NORepinephrine 8 MG in DEXTROSE 5% 250ML IV SCH (10:07)
[2022-02-24 10:16] LABS: ABG PCO2 50 mmHg (34-45); ABG PH 7.32 (7.35-7.45); ABG PO2 72 mmHg (80-100)
[2022-02-24 10:17] LABS: ABG BASE EXCESS -1.3 mmol/L (-2.0-3.0); ABG HCO3 25.1 mmol/L (22.0-26.0); ABG MODE OF VENTILATION ASSIST/CONTROL; ABG OXYGEN SATURATION 92 % (94-98); ABG RESPIRATORY RATE 18 b/min; ABG TCO2 26.6 MMOL/L (21.0-29.0); ALLEN TEST POSITIVE
[2022-02-24] MEDS: ENOXAPARIN 100 MG/ML SYRINGE SUBQ SCH ×2 (10:59→21:20)
[2022-02-24] MEDS: PANTOPRAZOLE 40 MG VIAL IVP SCH (10:59)
[2022-02-24] MEDS: CHLORHEXIDINE GLUCONATE 15 ML UDC PO SCH ×2 (10:59→21:20)
[2022-02-24] MEDS ORDERED: NORepinephrine 3 MG in DEXTROSE 5% 97 ML IV SCH (11:00)
[2022-02-24] MEDS ORDERED: PROPOFOL 1000 MG/100 ML 1,000 MG/100 ML BOTTLE IV SCH (11:00)
--- NOTE | 2022-02-24 11:04 | XRAY Report ---
PROCEDURE: Chest for Line Placement INDICATIONS: central line placement AND NG TUBE PLACEMENT TECHNIQUE: One view of the chest was acquired. COMPARISON: Same-day radiograph FINDINGS: Surgical changes and devices: Enteric tube terminates in mid mid esophagus after looping in the dist al esophagus. Central line terminates in the lower SVC. ET tube terminates in appropriate position. Lungs and pleura: Mild lung disease in the left. Possible pleural effusion. Overall findings are dec reased compared to same-day radiograph. Mediastinum: Cardiomegaly Bones and chest wall: No suspicious bony lesions. Overlying soft tissues appear unremarkable. IMPRESSION: Appropriate positioning of central line and ET tube. The enteric tube is looped in the esophagus, con truck hopper complete withdrawal and reinsertion. Decreased lung disease. Cardiomegaly. Reviewed by: Eduardo Dunn MD on 02/24/2022 11:03 AM PDT Approved by: Eduardo Dunn MD on 02/24/2022 11:03 AM PDT Station ID: [id number]
--- NOTE | 2022-02-24 11:07 | CONSULTATION NOTE ---
Consultation Report: Mr. Piper was scheduled for an upper and lower GI scope. Initial evaluation revealed a 56 year old male in no distress. His past medical history included hypertension, smoking, recent onset of afib treated with metoprolol and xaralto and untreated sleep apnea. He had been seen by cardiology was cleared to have today's procedure. On arrival to the OR full stand of care monitors were applied. O2 via facemask was applied at 10L/minute. Propofol and versed were given IV. With onset of sedation, immediately, it was difficult to maintain a irway patency. Patient had several episodes of quick desaturations. Procedure was halted and 100% O2 with respirations assisted via BVM. O2 sats improved. Due to difficulty maintaining airway and O2 sats, it was decided to secure the airway with ETT intubation and then continue the procedure. Patient was given 100% O2 via mask and intubation was uneventful with glidescope. Patient was moved to OR 3 to allow access to anesthesia machine. Shortly after intubation, it became increasingly difficult to maintain patient's oxygenation (sats decreased to 70-80%), despite 100% O2, peep of 5 and muscle relaxation. Patient also required phenylphrine drip to maintain adequate blood pressure. Chest xray was obtained intraoperative and showed ETT in good position, but left chest was maude out. Procedure was canceled and hospitalist (Abran) consulted for acute respiratory failure of unknown cause. Patient's family was updated by Dr. Ackerman. Patient was transported to the ICU with 100% O2 and report given at bedside. Please see anesthesia record for vital signs and medications.
--- NOTE | 2022-02-24 11:12 | ANESTHESIA PROCEDURE NOTE ---
Anesth Central Line Template - Central Line Central Line Preparation: Consent Obtained (consent obtained from patient's nasir dean. Patient intubated.), Time out completed, Ultrasound used, Sterile prep and drape Central line location: Right IJ Central line type: Triple lumen Central line catheter tip site resides: Superior vena cava (SVC) Central line aftercare: Chlorhexidine disc placed, Secured, Placement confirmed, No pneumothorax, No complications, Pt tolerated well Other Info/Details: Right neck prepped with chlorohexadine. Full sterile gown, drape, gloves, mask utilized. Right neck localized with 3ml of 1% lidocaine. Right IJ imaged under ultrasound and needle visualized during insertion. Wire advanced with ease. After dilation, a triple lumen central line was inserted and wire removed. All ports aspirate and flush with ease. Line sutured in place and covered with opsite/biopatch. Placement verified with chest xray.
[2022-02-24] MEDS ORDERED: ROCURONIUM 50 MG/5 ML VIAL ONE (12:06)
[2022-02-24] MEDS ORDERED: PHENYLEPHRINE 10 MG/ML VIAL ONE (12:07)
[2022-02-24] MEDS ORDERED: ALBUTEROL 8 GM INHALER INH ONE (12:07)
--- NOTE | 2022-02-24 12:41 | PHARMACY PROGRESS NOTE ---
- Best Possible Medication History Admit Date and Time: 02/24/22 0846 Processed by: Nursing Medication History completed: Yes Patient Interview: Completed As the person ultimately responsible for medication therapy, providers are able to order a medication from an existing home medication list in [facility] via the "Reconcile Routine" prior to Confirmation of that medication by customer support representative. Such practice is discouraged except when the physician, in their clinical judg ment, deems that a medical need exists for a medication without regard to previous use.
[2022-02-24] MEDS: iohexoL-300 100 ML VIAL IVP ONE (12:50)
--- NOTE | 2022-02-24 12:50 | HISTORY & PHYSICAL EXAMINATION ---
Chief Complaint - Chief Complaint Chief Complaint: Acute respiratory failure with hypoxia History of Present Illness - Admitted From Admitted From:: Operating room - History Obtained From Records Reviewed: Louann Chavez History obtained from: Past medical records, surgical staff, [facility] Exam Limitations: Pt intubated - History of Present Illness HPI Comment/Other: This is a 56-year-old male admitted to the ICU after experiencing acute respiratory failure with hypoxia in the surgical suite. He was scheduled for an upper and lower GI scope d/t a history of benign gastric tumor and recent blood per rectum. His past medical history included hypertension, smoking (0.5 pack x 20 years), untreated sleep apnea, and recent onset of afib treated with metoprolol and xaralto. He had cardiology clearance prior to his procedure. On arrival to the surgical suite, full standard of care monitors were applied, oxygen was applied at 10L per minute via mask and propofol and versed were given IV. Immediate after onset of sedation, pt began to cough uncontrollably and had copious salivary secretions. His airway patency became difficult to maintain and the patient experienced several episodes of quick desaturations. The procedure was halted and 100% oxygen was administered, with bag valve mask to assist in respiration. His oxygen saturation improved, but d/t difficulty maintaining his airway and adequate oxygen saturations the decision to halt the procedure and secure the airway with ETT intubation was made. Pt's intubation was achieved with a glidescope and reported to be uneventful per anesthesia provider. There was also no emesis or apparent aspiration noted at that time. At that point it was necessary to move the patient via gurney to a room with an anesthesia machine. It became increasingly difficult to maintain adequate oxygenation shortly after intubation, and his oxygen saturation levels dropped to 70-80% d espite the administration of 100% oxygen, peep of 5, and muscle relaxation. He also required phenylephrine to maintain adequate blood pressure. A chest x-ray was performed intraoperatively, the ETT was shown to be in good position, but the left chest was reported to be completely maude out. Upon re ceiving the chest x-ray results, surgical care team made the decision to halt the procedure. Pt was admitted to the ICU, where he remains intubated. A chest/thorax CTA was performed with IV contrast, the impressions of the imaging results are as follows: 1. No PE 2. Malpositioned NGT 3. Left lower lobe collapse 4. Left adrenal adenoma 5. Coronary artery disease ROS was not able to be performed since he was intubated. History - Past Medical History Cardiovascular: reports: Hypertension, High cholesterol, Atrial fibrillation Respiratory: reports: Sleep apnea Neuro: reports: None Endocrine/Autoimmune: reports: None GI: reports: GERD, Other : reports: None HEENT: reports: Chronic vision loss Psych: reports: None Musculoskeletal: reports: Osteoarthritis, Chronic back pain Derm: reports: None MRSA Hx?: No - Past Surgical History General: reports: Gastric surgery (GIST. Gastric tumor resection), EGD - Family & Social History Family History Comment/Other: Family history obtained from a variety of past medical records, since pt is intubated and unable to answer questions. He has no significant family history of cancers or CAD. Lives with spouse (Britt) in [place]. He has been reported by his [facility] to be a frequent binge drinker, one chart reports 2 glasses of beer per day. He currently smokes and has a history of 0.5 a pack per day for 20 years. Other substance use is unknown. Living arrangement: At home Living Situation: With spouse/s.o. - Substance History Use: Uses substance without health or social issues: Tobacco, Alcohol Tobacco Details: Cigarettes - POLST Patient has POLST: Yes POLST Status: DNR Meds/Allgy - Home Medications Home Medications: Ambulatory Orders Medication Instructions Recorded Confirmed Amlodipine Besylate [Norvasc] 10 mg PO DAILY 02/20/22 02/24/22 Benazepril HCl 40 mg PO DAILY 02/20/22 02/24/22 Metoprolol Tartrate [Lopressor] 50 mg PO BID 02/20/22 02/24/22 Omeprazole Magnesium 20 mg PO DAILY PRN 02/20/22 02/24/22 Rivaroxaban [Xarelto] 20 mg PO QPM 02/20/22 02/24/22 - Allergies Allergies/Adverse Reactions: Allergies Allergy/AdvReac Type Severity Reaction Status Date / Time losartan Allergy Hives Verified 02/20/22 12:21 Review of Systems - Other Findings Other Findings: Unable to complete d/t pt being intubated. Prior Level of Functionality: Able to perform daily activities of living unassisted. Exam - Vital Signs Reviewed Vital Signs: Yes Vital Signs: Vital Signs x48h Temp Pulse Pulse Resp BP BP Pulse Ox 02/24/22 12:38 63 20 115/78 98 02/24/22 12:32 70 02/24/22 12:00 61 21 126/88 H 100 02/24/22 11:30 63 18 114/82 H 100 02/24/22 11:00 64 20 108/67 99 02/24/22 10:30 58 L 20 101/66 97 02/24/22 10:25 65 02/24/22 10:00 58 L 21 114/81 H 96 02/24/22 09:51 73 23 123/79 84 L 02/24/22 09:45 68 21 65/52 L 95 02/24/22 09:40 64 21 84/56 L 93 02/24/22 09:37 36.1 C L 65 22 77/49 L 92 02/24/22 09:31 62 16 93/53 L 93 02/24/22 09:14 66 19 79/43 L 75 L 02/24/22 06:43 37 C 90 18 132/86 H 99 - Physical Exam General Appearance: positive: Other (Intubated, sedated.) Eyes Bilateral: positive: PERRL, No lid inflammation, No scleral icterus ENT: positive: ENT inspection nml (Appears normal. Not able to fully visualize mouth/throat d/t ETT.), Other (Missing teeth. Unable to visualize all of mouth/throat d/t ETT.) Neck: positive: Nml inspection, No JVD, Trachea midline Respiratory: positive: Other (VERY diminished left lung sounds.) Cardiovascular: positive: Regular rate & rhythm Peripheral Pulses: positive: 2+ Abdomen: positive: No organomegaly, Nml bowel sounds, No distention, Other (Obese.) Back: positive: Nml inspection Skin: positive: Warm Extremities: positive: Nml appearance, No pedal edema Neurologic/Psychiatric: positive: Other (Unsconscious, intubated.) Reflexes: Bicep (R): 2+, Bicep (L): 2+, Knee (R): 2+, Knee (L): 2+, Ankle (R): 2+, Ankle (L): 2+ Babinski Reflex: Right: Down, Left: Down Conclusion/Plan - Problem List (1) Acute respiratory failure with hypoxia Conclusion/Plan: Pt was intubated following intractable oxygen desaturation post sedation with IV propofol for an upper and lower endoscopy. He was intubated and has been admitted to the ICU. D/Dx: PE, mucus plug, pulmonary infarct, foreign body aspiration. Plan: Keep him intubated until he stabilizes. Continue to monitor pt closely for progress. (2) Collapse of left lung Conclusion/Plan: A chest/thorax CTA was performed with IV contrast, the impressions of the imaging results are as follows: 1. No PE 2. Malpositioned NGT 3. Left lower lobe collapse 4. Left adrenal adenoma 5. Coronary artery disease Plan: Keep pt intubated until he stabilizes. Continue to monitor him closely for signs of decline. (3) History of atrial fibrillation Conclusion/Plan: Previously diagnosed condition. The event which led him to be hospitalized today is likely pulmonary in origin, but it would be prudent to obtain an echocardiogram. Unfortunately, we are unable to do so today and will not be able to until Sunday when there is a stenographic court reporter in house. This may mean that he will need to obtain an echocardiogram as an outpatient. Additionally, he should have a stress test as an outpatient. Plan: Monitoring troponins, CBC, BMP (+mag, phos) daily. Resume rivaroxaban when he stabilizes. He will need to obtain an echocardiogram and stress test as an outpatient. (4) Hypertension Conclusion/Plan: Previously diagnosed hypertension. Plan: Resume home medications when he stabilizes. - Lab Results Lab results reviewed: Yes Fish Bones: 02/24/22 08:21 02/24/22 08:21 - Diagnostic Imaging Results Diagnostic Imaging Results: positive: Final report reviewed - EKG Results EKG Comparison: Unchanged from prior EKG Core Measures - Anticipated LOS I expect patient to be DC'd or transferred within 96 hours.: Yes - DVT/VTE - Prophylaxis VTE/DVT Prophylaxis med ordered at admit?: Yes - Stroke - Rehab Assessment Rehab services assessment to be ordered?: No Not Ordered - Medical Reason: Not indicated - AMI - Statin at Admit Aspirin Prescribed on Admit: No Not Ordered - Medical Reason: Not indicated
--- NOTE | 2022-02-24 12:54 | CT Report ---
PROCEDURE: ANGIO CHEST W/WO INDICATIONS: RESPIRATORY CODE IN OR CONTRAST: IV CONTRAST: Optiray 320 ml: 80 PO CONTRAST: *NO PO CONTRAST TECHNIQUE: After the administration of intravenous contrast, 2 mm axial images were acquired from the pulmonary apices to the posterior costophrenic angles during the arterial phase. In addition, 1 mm lung kernel and 5 mm soft tissue kernel reconstructions were performed. 3-dimensional coronal oblique maximum int ensity projection (MIP) reformats, 8 mm axial MIP, and 5 mm coronal and sagittal MPR reformats were t hen performed through the thorax. For radiation dose reduction, the following was used: automated exp osure control, adjustment of mA and/or kV according to patient size. COMPARISON: Report for chest CT dated 11/01/2021. FINDINGS: Image quality: Excellent. Pulmonary arteries: Pulmonary arteries are normal in size, and demonstrate no intraluminal filling d efects to suggest central pulmonary embolism. Lungs and pleura: Left lower lobe collapse is present. Mild dependent atelectasis within the right lo wer lobe. No pleural effusions or pneumothorax. Central and peripheral airways are patent. Mediastinum: Heart size is normal, without pericardial effusion. Mild calcification of the coronary vasculature. No mediastinal or hilar adenopathy. Thoracic aorta is normal in caliber and enhancemen t. Esophagus is normal in caliber, without hiatal hernia. An NGT is present, which demonstrates a l oop in the gastric lumen, the tip of which is in the distal esophagus. Bones and chest wall: No suspicious bony lesions. Ribs and thoracic spine appear intact throughout. No axillary or supraclavicular adenopathy. The thyroid is normal in size and there are no incident al findings. Abdomen: Visualized portions of the upper abdomen demonstrate a left adrenal nodule measuring 22 mm and demonstrating Hounsfield units of -13. IMPRESSION: 1. No pulmonary embolus. 2. Malpositioned NGT as above. 3. Left lower lobe collapse. 4. Left adrenal adenoma. 5. Coronary artery disease. Reviewed by: Maggie Grove MD on 02/24/2022 12:53 PM PDT Approved by: Maggie Grove MD on 02/24/2022 12:53 PM PDT Station ID: [id number]
[2022-02-24] MEDS ORDERED: DEXMEDETOMIDINE 400 MCG/100 ML 100 ML IV SCH (13:00)
[2022-02-24] MEDS: MORPHINE 2 MG/ML CARPUJECT IVP PRN ×6 (13:16→21:29)
--- NOTE | 2022-02-24 13:18 | ANESTHESIA POST OP EVALUATION ---
Anesthesia Post Eval - Post Anesthesia Eval Vitals: Last Vital Signs Temp 36.1 C L 02/24/22 09:37 Pulse 68 02/24/22 13:00 Resp 20 02/24/22 13:00 BP 120/74 02/24/22 13:00 Pulse Ox 95 02/24/22 13:00 O2 Flow Rate CV Function Including HR & BP: Additional Therapies Ordered Nausea & Vomiting: Negative Mental Status: Other (sedated) Respiratory Status: Other (intubated and vented) Hydration Status: Satisfactory Anesthesia Complications: Other (respiratory failure in icu)
[2022-02-24] MEDS ORDERED: DEXMEDETOMIDINE 1,000 MCG in SODIUM CHLORIDE 0.9% 240 ML IV SCH (16:00)
[2022-02-24] MEDS: DEXMEDETOMIDINE 1,000 MCG in SODIUM CHLORIDE 0.9% 240 ML IV SCH ×2 (16:04→21:59)
[2022-02-24] MEDS: SODIUM CHLORIDE FLUSH 0.9% 10 ML SYRINGE IVP PRN (20:08)
[2022-02-25] MEDS: SODIUM CHLORIDE FLUSH 0.9% 10 ML SYRINGE IVP SCH ×5 (00:23→22:36)
[2022-02-25] MEDS: MORPHINE 2 MG/ML CARPUJECT IVP PRN ×4 (00:37→22:35)
[2022-02-25] MEDS: NORepinephrine 8 MG in DEXTROSE 5% 250ML IV SCH (02:05)
[2022-02-25] MEDS: DEXMEDETOMIDINE 1,000 MCG in SODIUM CHLORIDE 0.9% 240 ML IV SCH (04:16)
[2022-02-25 05:15] LABS: CALCIUM, IONIZED 1.04 mmol/L (1.15-1.33); VBG PH 7.412 (7.31-7.41)
[2022-02-25 05:17] LABS: BASOPHILS % (AUTO) 0.6 %; EOSINOPHILS % (AUTO) 0.4 %; HCT - HEMATOCRIT 26.1 % (42.0-52.0); LYMPHOCYTES % (AUTO) 23.9 %; MEAN CORPUSCULAR HEMOGLOBIN 27.5 pg (27.0-31.0); MEAN CORPUSCULAR HGB CONC 30.7 g/dL (32.0-36.0); MEAN CORPUSCULAR VOLUME 89.7 fL (80.0-94.0); MEAN PLATELET VOLUME 8.7 fL (7.4-11.4); MONOCYTES % (AUTO) 14.5 %; NEUTROPHILS % (AUTO) 60.2 %; PLT - PLATELET COUNT 323 10^3/uL (130-450); RED BLOOD COUNT 2.91 10^6/uL (4.70-6.10); RED CELL DISTRIBUTION WIDTH 16.2 % (12.0-15.0); WHITE BLOOD COUNT 12.4 x10^3/uL (4.8-10.8)
[2022-02-25 05:29] LABS: ABNORMAL LYMPHS % (MANUAL) 0 %; CALCIUM 8.1 mg/dL (8.5-10.3); CREATININE 1.4 mg/dL (0.6-1.2); MAGNESIUM 1.6 mg/dL (1.7-2.8); PHOSPHORUS 2.7 mg/dL (2.5-4.6); POTASSIUM 3.9 mmol/L (3.5-5.0)
[2022-02-25] MEDS ORDERED: POTASSIUM CHLOR 20 MEQ/100 ML 20 MEQ/100 ML BAG IV ONE (06:00)
[2022-02-25] MEDS ORDERED: MAGNESIUM SULFATE 2 GRAM 2 GM/50 ML BAG IV ONE (06:00)
[2022-02-25 06:37] LABS: BAND NEUTROPHILS % (MANUAL) 2 %; BASOPHILS # (MANUAL) 0.1 10^3/uL (0-0.1); BASOPHILS % (MANUAL) 1 %; DIFFERENTIAL COMMENT MANUAL DIFFERENTIAL; EOSINOPHILS # (MANUAL) 0.1 10^3/uL (0-0.7); LYMPHOCYTES # (MANUAL) 3.1 10^3/uL (1.5-3.5); LYMPHOCYTES % (MANUAL) 25 %; MONOCYTES # (MANUAL) 0.6 10^3/uL (0.0-1.0); NEUTROPHILS # (MANUAL) 8.4 10^3/uL (1.5-6.6); PLATELET ESTIMATE, MANUAL NORMAL (130-450,000) (NORMAL); RBC MORPHOLOGY (MULTIPLE) NORMAL APPEARANCE (NORMAL)
[2022-02-25] MEDS: PANTOPRAZOLE 40 MG VIAL IVP SCH (06:48)
[2022-02-25] MEDS: SODIUM CHLORIDE FLUSH 0.9% 10 ML SYRINGE IVP PRN ×2 (06:49→21:20)
[2022-02-25] MEDS ORDERED: CALCIUM GLUC 1,000MG/50ML-NACL 1,000 MG/50 ML BAG IV ONE (07:00)
[2022-02-25] MEDS: ENOXAPARIN 100 MG/ML SYRINGE SUBQ SCH (08:05)
[2022-02-25] MEDS: LACTATED RINGERS 1,000 ML IV SCH (08:05)
[2022-02-25] MEDS: CHLORHEXIDINE GLUCONATE 15 ML UDC PO SCH (08:05)
--- NOTE | 2022-02-25 08:50 | PROVIDER PROGRESS NOTE ---
Subjective - Prog Note Date Prog Note Date: 02/25/22 Prog Note Time: 08:35 - Subjective Subjective: . Last night was very alert when I left in spite of Precedex or propofol. This morning all sedation is stopped and he is awake, alert, following commands. nif is -50. Pressure is good, pulses without tachycardia. TV on his own is close to 500cc. He is very calm considering he is without sedation. We have decided to extubate. After extubation phlegm has changed from clear to thick and yellow and sometimes thick and brown. He states that he coughs on a daily basis. It is not contiguous but more like a good bringing up the phlegm about every 3 or 4 hours when he is awake. That is unchanged since before admission. That is been going on for years. He denied any antecedent change in his cough or phlegm color or amount. No hemoptysis. No fevers no chills. He denied any antecedent URI symptoms.He does smoke. The hardest part about stopping smoking has been trying to change the behaviors around. When he gets up in the morning to go to the bathroom he smokes. Now it is a do with his hands. After dinner he smokes. Now what is he supposed to do after dinner. Its been very hard for him. When he is resting quietly, and not speaking, his main finding on lung exam is scattered wheezing. But when he starts to talk, he developed stridor. He is not uncomfortable with this but it is very evident. When anesthesia was placing a central line in, the using ultrasound for guidance. The ultrasound identified a soft tissue neck mass. Current Medications - Current Medications Current Medications: Active Medications Acetaminophen (Acetaminophen 325 Mg Tablet) 650 mg PO Q4HR PRN PRN Reason: Pain 1 to 4, or Fever Albuterol (Albuterol Neb 2.5 Mg/3 Ml) 2.5 mg INH Q2HR PRN PRN Reason: Wheezing Last Admin: 02/25/22 15:24 Dose: 2.5 mg Apixaban (Apixaban 5 Mg Tablet) 5 mg PO BID SIMÓN Chlorhexidine Gluconate (Chlorhexidine Gluconate 15 Ml Udc) 15 ml PO BID SIMÓN Last Admin: 02/25/22 08:05 Dose: 15 ml Lactated Ringer's (Lr) 1,000 mls @ 100 mls/hr IV .Q10H [facility] Last Admin: 02/25/22 08:05 Dose: 100 mls/hr Ceftriaxone Sodium 2 gm/ (Sodium Chloride) 100 mls @ 200 mls/hr IV DAILY [facility] Last Infusion: 02/25/22 10:23 Dose: Infused Azithromycin 500 mg/ Sodium (Chloride) 250 mls @ 250 mls/hr IV DAILY [facility] Last Infusion: 02/25/22 10:30 Dose: Infused Morphine Sulfate (Morphine 2 Mg/Ml Carpuject) 2 mg IVP Q1H PRN PRN Reason: Pain 8 to 10 Last Admin: 02/25/22 00:37 Dose: 2 mg Ondansetron HCl (Ondansetron Odt 4 Mg Tablet) 4 mg TL Q6HR PRN PRN Reason: Nausea / Vomiting Ondansetron HCl (Ondansetron 4 Mg/2 Ml Vial) 4 mg IVP Q6HR PRN PRN Reason: Nausea / Vomiting Pantoprazole Sodium (Pantoprazole 40 Mg Vial) 40 mg IVP QDAC [facility] Last Admin: 02/25/22 06:48 Dose: 40 mg Sodium Chloride (Sodium Chloride Flush 0.9% 10 Ml Syringe) 10 ml IVP 0100,0900,1700 [facility] Last Admin: 02/25/22 08:06 Dose: 10 ml Sodium Chloride (Sodium Chloride Flush 0.9% 10 Ml Syringe) 10 ml IVP PRN PRN PRN Reason: NEEDED PER PROVIDER ORDERS Last Admin: 02/25/22 06:49 Dose: 10 ml Amlodipine Besylate [Norvasc] 10 mg PO DAILY 02/20/22 Benazepril HCl 40 mg PO DAILY 02/20/22 Metoprolol Tartrate [Lopressor] 50 mg PO BID 02/20/22 Omeprazole Magnesium 20 mg PO DAILY PRN 02/20/22 Rivaroxaban [Xarelto] 20 mg PO QPM 02/20/22 Objective - Vital Signs/Intake & Output Reviewed Vital Signs: Yes Vital Signs: Vital Signs x48h Temp Pulse Pulse Resp BP Pulse Ox O2 Flow Rate 02/25/22 08:29 10 02/25/22 08:00 36.8 C 74 19 104/74 96 02/25/22 07:02 66 02/25/22 07:00 67 16 110/73 95 02/25/22 06:00 67 20 99/59 L 92 10/15/22 05:15 96 02/25/22 05:00 63 20 112/78 99 02/25/22 04:00 36.4 C L 62 20 113/83 H 97 02/25/22 03:00 653 H 20 108/79 92 02/25/22 02:00 63 20 122/85 H 98 02/25/22 01:24 65 02/25/22 01:00 65 20 114/81 H 97 Intake & Output: Intake & Output 02/22/22 02/23/22 02/24/22 02/25/22 23:59 23:59 23:59 23:59 Intake Total 6421.481 7312.732 Output Total 1100 347 Balance 771.170 932.732 - Objective General Appearance: positive: Alert, Other (Short overweight black male.) Eyes Bilateral: positive: PERRL, EOMI ENT: positive: No signs of dehydration Neck: positive: Other (Stridor when he starts to speak.When anesthesia was putting in his central line, ultrasound showed soft tissue thickening of his neck. I will order CT of the neck for tomorrow.). negative: Tracheal deviation Respiratory: positive: No respiratory distress, Wheezes, Other (Stridor when he talks) Cardiovascular: positive: Regular rate & rhythm (No atrial fibrillation.) Abdomen: positive: Non-tender, Nml bowel sounds, No distention, Other (Protuberant, rounded obese belly) Skin: positive: Warm, Dry Extremities: positive: Full ROM, No pedal edema Neurologic/Psychiatric: positive: Oriented x3, CN's nml (2-12), Motor nml - Lab Results Fish Bones: 02/25/22 05:00 02/25/22 09:21 Other Labs: Lab Results x24hrs 02/25/22 02/25/22 02/25/22 Range/Units 05:30 05:00 05:00 WBC (4.8-10.8) x10^3/uL RBC (4.70-6.10) 10^6/uL Hgb (14.0-18.0) g/dL Hct (42.0-52.0) % MCV (80.0-94.0) fL MCH (27.0-31.0) pg MCHC (32.0-36.0) g/dL RDW (12.0-15.0) % Plt Count (130-450) 10^3/uL MPV (7.4-11.4) fL Neut # (Auto) (1.5-6.6) 10^3/uL Lymph # (Auto) (1.5-3.5) 10^3/uL Woodruff # (Auto) (0.0-1.0) 10^3/uL Eos # (Auto) (0.0-0.7) 10^3/uL Baso # (Auto) (0.0-0.1) 10^3/uL Absolute Nucleated RBC x10^3/uL Total Counted Band Neuts % (Manual) (0 - 10) % Abnorm Lymph % (Manual) % Nucleated RBC % /100WBC Neutrophils # (Manual) (1.5-6.6) 10^3/uL Lymphocytes # (Manual) (1.5-3.5) 10^3/uL Monocytes # (Manual) (0.0-1.0) 10^3/uL Eosinophils # (Manual) (0-0.7) 10^3/uL Basophils # (Manual) (0-0.1) 10^3/uL Differential Comment Platelet Estimate (NORMAL) RBC Morph Micro Appear (NORMAL) Bld Gas Analysis Time Sample Site ABG pH (7.35-7.45) ABG pCO2 (34-45) mmHg ABG pO2 (80-100) mmHg ABG HCO3 (22.0-26.0) mmol/L ABG Total CO2 (21.0-29.0) MMOL/L ABG O2 Saturation (94-98) % ABG Base Excess (-2.0-3.0) mmol/L Miguel Test VBG pH 7.412 H (7.31-7.41) Ionized Calcium 1.04 L (1.15-1.33) mmol/L Respiration Rate b/min O2 Delivery Device Vent Mode FiO2 Tidal Volume mL PEEP cmH2O Sodium 135 (135-145) mmol/L Potassium 3.9 (3.5-5.0) mmol/L Chloride 101 (101-111) mmol/L Carbon Dioxide 25 (21-32) mmol/L Anion Gap 9.0 (6-13) BUN 10 (6-20) mg/dL Creatinine 1.4 H (0.6-1.2) mg/dL Estimated GFR (MDRD) 63 L (>89) Glucose 140 H (70-100) mg/dL Calcium 8.1 L (8.5-10.3) mg/dL Phosphorus 2.7 (2.5-4.6) mg/dL Magnesium 1.6 L (1.7-2.8) mg/dL Total Bilirubin (0.2-1.0) mg/dL AST (10-42) IU/L ALT (10-60) IU/L Alkaline Phosphatase (42-121) IU/L Troponin I High Sens (2.3-19.7) ng/L Total Protein (6.7-8.2) g/dL Albumin (3.2-5.5) g/dL Globulin (2.1-4.2) g/dL Albumin/Globulin Ratio (1.0-2.2) Nasal Screen MRSA (PCR) (NEGATIVE) SARS-CoV-2 (PCR) NOT DETECTED 02/25/22 02/24/22 02/24/22 Range/Units 05:00 14:22 11:03 WBC 12.4 H (4.8-10.8) x10^3/uL RBC 2.91 L (4.70-6.10) 10^6/uL Hgb 8.0 L (14.0-18.0) g/dL Hct 26.1 L (42.0-52.0) % MCV 89.7 (80.0-94.0) fL MCH 27.5 (27.0-31.0) pg MCHC 30.7 L (32.0-36.0) g/dL RDW 16.2 H (12.0-15.0) % Plt Count 323 (130-450) 10^3/uL MPV 8.7 (7.4-11.4) fL Neut # (Auto) Not Reportable (1.5-6.6) 10^3/uL Lymph # (Auto) Not Reportable (1.5-3.5) 10^3/uL Woodruff # (Auto) Not Reportable (0.0-1.0) 10^3/uL Eos # (Auto) Not Reportable (0.0-0.7) 10^3/uL Baso # (Auto) Not Reportable (0.0-0.1) 10^3/uL Absolute Nucleated RBC Not Reportable x10^3/uL Total Counted 100 Band Neuts % (Manual) 2 (0 - 10) % Abnorm Lymph % (Manual) 0 % Nucleated RBC % Not Reportable /100WBC Neutrophils # (Manual) 8.4 H (1.5-6.6) 10^3/uL Lymphocytes # (Manual) 3.1 (1.5-3.5) 10^3/uL Monocytes # (Manual) 0.6 (0.0-1.0) 10^3/uL Eosinophils # (Manual) 0.1 (0-0.7) 10^3/uL Basophils # (Manual) 0.1 (0-0.1) 10^3/uL Differential Comment MANUAL DIFFERENTIAL Platelet Estimate NORMAL (130-450,000) (NORMAL) RBC Morph Micro Appear NORMAL APPEARANCE (NORMAL) Bld Gas Analysis Time Sample Site ABG pH (7.35-7.45) ABG pCO2 (34-45) mmHg ABG pO2 (80-100) mmHg ABG HCO3 (22.0-26.0) mmol/L ABG Total CO2 (21.0-29.0) MMOL/L ABG O2 Saturation (94-98) % ABG Base Excess (-2.0-3.0) mmol/L Miguel Test VBG pH (7.31-7.41) Ionized Calcium (1.15-1.33) mmol/L Respiration Rate b/min O2 Delivery Device Vent Mode FiO2 Tidal Volume mL PEEP cmH2O Sodium (135-145) mmol/L Potassium (3.5-5.0) mmol/L Chloride (101-111) mmol/L Carbon Dioxide (21-32) mmol/L Anion Gap (6-13) BUN (6-20) mg/dL Creatinine (0.6-1.2) mg/dL Estimated GFR (MDRD) (>89) Glucose (70-100) mg/dL Calcium (8.5-10.3) mg/dL Phosphorus (2.5-4.6) mg/dL Magnesium (1.7-2.8) mg/dL Total Bilirubin (0.2-1.0) mg/dL AST (10-42) IU/L ALT (10-60) IU/L Alkaline Phosphatase (42-121) IU/L Troponin I High Sens 6.1 5.3 (2.3-19.7) ng/L Total Protein (6.7-8.2) g/dL Albumin (3.2-5.5) g/dL Globulin (2.1-4.2) g/dL Albumin/Globulin Ratio (1.0-2.2) Nasal Screen MRSA (PCR) (NEGATIVE) SARS-CoV-2 (PCR) 02/24/22 02/24/22 02/24/22 Range/Units 11:00 10:00 08:21 WBC (4.8-10.8) x10^3/uL RBC (4.70-6.10) 10^6/uL Hgb (14.0-18.0) g/dL Hct (42.0-52.0) % MCV (80.0-94.0) fL MCH (27.0-31.0) pg MCHC (32.0-36.0) g/dL RDW (12.0-15.0) % Plt Count (130-450) 10^3/uL MPV (7.4-11.4) fL Neut # (Auto) (1.5-6.6) 10^3/uL Lymph # (Auto) (1.5-3.5) 10^3/uL Woodruff # (Auto) (0.0-1.0) 10^3/uL Eos # (Auto) (0.0-0.7) 10^3/uL Baso # (Auto) (0.0-0.1) 10^3/uL Absolute Nucleated RBC x10^3/uL Total Counted Band Neuts % (Manual) (0 - 10) % Abnorm Lymph % (Manual) % Nucleated RBC % /100WBC Neutrophils # (Manual) (1.5-6.6) 10^3/uL Lymphocytes # (Manual) (1.5-3.5) 10^3/uL Monocytes # (Manual) (0.0-1.0) 10^3/uL Eosinophils # (Manual) (0-0.7) 10^3/uL Basophils # (Manual) (0-0.1) 10^3/uL Differential Comment Platelet Estimate (NORMAL) RBC Morph Micro Appear (NORMAL) Bld Gas Analysis Time 1000 Sample Site RIGHT RADIAL ABG pH 7.32 L (7.35-7.45) ABG pCO2 50 H (34-45) mmHg ABG pO2 72 L (80-100) mmHg ABG HCO3 25.1 (22.0-26.0) mmol/L ABG Total CO2 26.6 (21.0-29.0) MMOL/L ABG O2 Saturation 92 L (94-98) % ABG Base Excess -1.3 (-2.0-3.0) mmol/L Miguel Test POSITIVE VBG pH (7.31-7.41) Ionized Calcium (1.15-1.33) mmol/L Respiration Rate 18 b/min O2 Delivery Device VENTILATOR Vent Mode ASSIST/CONTROL FiO2 80.00 Tidal Volume 500 mL PEEP 5 cmH2O Sodium 137 (135-145) mmol/L Potassium 4.3 (3.5-5.0) mmol/L Chloride 102 (101-111) mmol/L Carbon Dioxide 25 (21-32) mmol/L Anion Gap 10.0 (6-13) BUN 10 (6-20) mg/dL Creatinine 1.5 H (0.6-1.2) mg/dL Estimated GFR (MDRD) 58 L (>89) Glucose 150 H (70-100) mg/dL Calcium 8.1 L (8.5-10.3) mg/dL Phosphorus (2.5-4.6) mg/dL Magnesium (1.7-2.8) mg/dL Total Bilirubin 0.4 (0.2-1.0) mg/dL AST 27 (10-42) IU/L ALT 49 (10-60) IU/L Alkaline Phosphatase 103 (42-121) IU/L Troponin I High Sens (2.3-19.7) ng/L Total Protein 6.3 L (6.7-8.2) g/dL Albumin 3.3 (3.2-5.5) g/dL Globulin 3.0 (2.1-4.2) g/dL Albumin/Globulin Ratio 1.1 (1.0-2.2) Nasal Screen MRSA (PCR) NEGATIVE (NEGATIVE) SARS-CoV-2 (PCR) 02/24/22 02/24/22 Range/Units 08:21 08:21 WBC 9.2 (4.8-10.8) x10^3/uL RBC 3.16 L (4.70-6.10) 10^6/uL Hgb 8.8 L (14.0-18.0) g/dL Hct 28.3 L (42.0-52.0) % MCV 89.6 (80.0-94.0) fL MCH 27.8 (27.0-31.0) pg MCHC 31.1 L (32.0-36.0) g/dL RDW 16.2 H (12.0-15.0) % Plt Count 363 (130-450) 10^3/uL MPV 9.2 (7.4-11.4) fL Neut # (Auto) 5.5 (1.5-6.6) 10^3/uL Lymph # (Auto) 2.4 (1.5-3.5) 10^3/uL Woodruff # (Auto) 1.0 (0.0-1.0) 10^3/uL Eos # (Auto) 0.2 (0.0-0.7) 10^3/uL Baso # (Auto) 0.1 (0.0-0.1) 10^3/uL Absolute Nucleated RBC 0.00 x10^3/uL Total Counted Band Neuts % (Manual) (0 - 10) % Abnorm Lymph % (Manual) % Nucleated RBC % 0.0 /100WBC Neutrophils # (Manual) (1.5-6.6) 10^3/uL Lymphocytes # (Manual) (1.5-3.5) 10^3/uL Monocytes # (Manual) (0.0-1.0) 10^3/uL Eosinophils # (Manual) (0-0.7) 10^3/uL Basophils # (Manual) (0-0.1) 10^3/uL Differential Comment Platelet Estimate (NORMAL) RBC Morph Micro Appear (NORMAL) Bld Gas Analysis Time Sample Site ABG pH (7.35-7.45) ABG pCO2 (34-45) mmHg ABG pO2 (80-100) mmHg ABG HCO3 (22.0-26.0) mmol/L ABG Total CO2 (21.0-29.0) MMOL/L ABG O2 Saturation (94-98) % ABG Base Excess (-2.0-3.0) mmol/L Miguel Test VBG pH (7.31-7.41) Ionized Calcium (1.15-1.33) mmol/L Respiration Rate b/min O2 Delivery Device Vent Mode FiO2 Tidal Volume mL PEEP cmH2O Sodium (135-145) mmol/L Potassium (3.5-5.0) mmol/L Chloride (101-111) mmol/L Carbon Dioxide (21-32) mmol/L Anion Gap (6-13) BUN (6-20) mg/dL Creatinine (0.6-1.2) mg/dL Estimated GFR (MDRD) (>89) Glucose (70-100) mg/dL Calcium (8.5-10.3) mg/dL Phosphorus (2.5-4.6) mg/dL Magnesium (1.7-2.8) mg/dL Total Bilirubin (0.2-1.0) mg/dL AST (10-42) IU/L ALT (10-60) IU/L Alkaline Phosphatase (42-121) IU/L Troponin I High Sens 5.2 (2.3-19.7) ng/L Total Protein (6.7-8.2) g/dL Albumin (3.2-5.5) g/dL Globulin (2.1-4.2) g/dL Albumin/Globulin Ratio (1.0-2.2) Nasal Screen MRSA (PCR) (NEGATIVE) SARS-CoV-2 (PCR) ABX Reporting Has patient been on IV antibiotics over the past 48 hours?: Yes Assessment/Plan - Problem List (1) Acute respiratory failure with hypoxia Impression: Pt was intubated following intractable oxygen desaturation post sedation with IV propofol for an upper and lower endoscopy. He was intubated and has been admitted to the ICU. We obtained a CT pulmonary angiogram to assess for pulmonary embolus. No PE was seen. Left lower lobe collapse was present. Calcifications of the coronary arteries was mild. Thyroid was normal size. Visualized portions of the upper abdomen demonstrated a left adrenal nodule that was 22 mm. He was kept intubated overnight. This morning he did require an FiO2 of 60% but all other parameters were good so have extubated him. Through the course of the day he has been mobilizing secretions and bringing up quite a bit of phlegm. I have submitted those for culture. I also repeated his chest x-ray which showed improved aeration of the lungs. There is still some atelectasis seen in the left lower lung but no pneumothorax or large pleural effusion. Heart size mildly to moderately enlarged. Mediastinal contours appear normal. D/Dx: mucus plug He is the only thing I can think of. Repeat chest x-ray shows improvement. Plan: Extubated today. Keep on monitoring to make sure he stays stable considering I am hearing stridor now. The stridor may be laryngeal. I am also going to follow-up on the soft tissue neck mass seen by anesthesia when they put in the central line. He has had TSHs in the past. His TSH is of been normal, but the most recent one in October 2021 was slightly suppressed at 0.78. He denies any symptomatology of sweats, weight loss, diarrhea but did have a new A. fib in October. we will order imaging of his neck. (2) Collapse of left lung Conclusion/Plan: A chest/thorax CTA was performed with IV contrast, the impressions of the imaging results are as follows: 1. No PE 2. Malpositioned NGT 3. Left lower lobe collapse 4. Left adrenal adenoma 5. Coronary artery disease Plan: No real cause elicited from him other than may be a mucous plug. He produces daily phlegm. This is not negative pressure edema. CT did not show foreign body. CT did not show an endobronchial lesion. I would want to either see a chest x-ray in a months, as well as possibly a pulmonary consult for bronchoscopy in the outpatient setting. Since he has more phlegm, I am submitting that for culture and I am also starting Rocephin and azithromycin. (3) History of atrial fibrillation Conclusion/Plan: Previously diagnosed condition. It was found on a routine visit when he was seeing this provider. This was in October 2021 and during that visit his heart rate was noted to be elevated. He was asymptomatic with this. EKG showed atrial fibrillation and he was put on metoprolol and Xarelto. He was then referred to cardiology for stress test and echo. Those are scheduled for March. TSH in October was newly low. His usual TSH is started at over 2 and over the course of time I have noticed that they went to 1 and then below 1. The event which led him to be hospitalized is likely pulmonary in origin, but it would be prudent to obtain an echocardiogram. Unfortunately, we are unable to do so due to when the tech is available and will not be able to until Sunday when there is a stone processing machine operator in house. This may mean that he will need to obtain an echocardiogram as an outpatient. Additionally, he should have a stress test as an outpatient. I repeated an EKG today. Nursing felt that he may be having ST elevation on his telemetry leads. Repeat shows sinus tachycardia. Sharp T wave inversions that were present October 2016, December 24, 2021 are less evident today. There is still some slight inversions of the T waves in V5 and V6 but T waves are now become peaked and normalized in V2 through V4. He has nonspecific ST elevation in V2 and V3 this nondiagnostic. Trended troponins were unremarkable. I will be resuming his anticoagulant And his metoprolol (4) Hypertension Conclusion/Plan: Previously diagnosed hypertension. Plan: Resume metoprolol and amlodipine today. If his blood pressure tolerates that, I will then resume his benazepril. (5) Anemia Baseline hemoglobin is usually 12.1-13.5. With his colonoscopy he was 8.8. The anemia was the entire reason he was getting an upper and lower endoscopy. Today he is 8. Will check anemia panel. He is already fecal occult blood positive. He will eventually need the upper and lower endoscopy to be completed. It was a respiratory event that canceled his EGD and colonoscopy. He still has not had his stress test and echocardiogram. I will leave to the discretion of his PCP and dry transfer worker to see if they want to get those studies done before the next attempt at EGD and colonoscopy
[2022-02-25] MEDS: AZITHROMYCIN INJ 500 MG in SODIUM CHLORIDE 0.9% 250 ML IV SCH (09:30)
[2022-02-25 09:35] LABS: MAGNESIUM 2.2 mg/dL (1.7-2.8); POTASSIUM 4.1 mmol/L (3.5-5.0)
[2022-02-25] MEDS: cefTRIAXone 2 GM in SODIUM CHLORIDE 0.9% MINIBAG 100 ML IV SCH (09:53)
[2022-02-25] MEDS: ALBUTEROL NEB 2.5 MG/3 ML INH PRN ×3 (11:13→22:41)
--- NOTE | 2022-02-25 12:49 | XRAY Report ---
PROCEDURE: Chest 1 View X-Ray INDICATIONS: ITS.REASON: collapsed L lung, intubated, now extubated. TECHNIQUE: One view of the chest was acquired. COMPARISON: 02/24/2022, 10/24/2021 FINDINGS: Surgical changes and devices: A right-sided central line has been placed, with the tip overlying the inferior superior vena cava, 2 cm above the cavoatrial junction. The previously seen endotracheal tu be has been removed. Lungs and pleura: There is improved aeration of the lungs. There is apparent atelectasis seen involv ing the left lower lung. No pneumothorax or large pleural effusion can be seen. Mediastinum: Mediastinal contours appear normal. Heart size is mildly to moderately enlarged. Bones and chest wall: No suspicious bony lesions. Overlying soft tissues appear unremarkable. IMPRESSION: A right-sided central line is seen overlying the inferior aspect of the superior vena cava. Interval extubation, with improved aeration. Reviewed by: Nicolas Ayala MD on 02/25/2022 11:48 AM MEREDITH Approved by: Nicolas Ayala MD on 02/25/2022 11:48 AM MEREDITH Station ID: [id number]
[2022-02-25] MEDS ORDERED: iohexoL-300 100 ML VIAL ONE (16:52)
[2022-02-25] MEDS: iohexoL-300 100 ML VIAL IVP ONE (17:45)
--- NOTE | 2022-02-25 18:04 | CT Report ---
PROCEDURE: SOFT TISSUE NECK W INDICATIONS: ITS.REASON: SOFT TISSUE MASS SEEN W CENTRAL LINE US CONTRAST: IV CONTRAST: Optiray 320 ml: 100 PO CONTRAST: *NO PO CONTRAST TECHNIQUE: After the administration of intravenous contrast, 3.0 mm axial sections acquired from the sella to th e aortic arch. Additional oblique axial 3.0 mm sections acquired through the pharynx. 3 mm thick co paula reformats were generated. For radiation dose reduction, the following was used: automated exp osure control, adjustment of mA and/or kV according to patient size. COMPARISON: None. FINDINGS: Image quality: Excellent. Lymph nodes: No enlarged lymph nodes seen throughout the neck. However, borderline prominent cervic al lymph nodes are noted throughout. Vessels: Visualized vasculature appears patent. Incidental note is made of a common trunk off of th e aorta of the right brachiocephalic artery and the left common carotid artery (bovine type aortic ar ch). This is considered to be a developmental variant of typically no clinical consequence. Neck spaces: The oropharynx, nasopharynx, and pharynx demonstrate no mucosal lesions. The vocal cor ds, false vocal cords, pyriform sinuses, epiglottis, vallecula, and tongue base all appear normal. E xtramucosal spaces appear unremarkable. Glands: Abnormal prominence of the parotid glands can be seen, yet without abelardo masses. The right p arotid gland is slightly larger than the left. The subdural glands likewise demonstrate symmetric pro minence. The thyroid is normal in size and there are no incidental findings. Miscellaneous: Visualized brain and orbits appear normal. Lung apices appear clear. Superficial so ft tissues appear normal. A right-sided central line is partially seen, extending into the superior v clarissa cava. Bones: No suspicious bony lesions. At least moderate mucosal thickening can be seen within the paran seble sinuses. Moderate lower cervical spine degenerative change can be seen. IMPRESSION: No soft tissue masses are seen. Note is made of abnormally prominent parotid glands and submandibular glands. Right-sided central line partially seen. Incidental note is made of: Paranasal sinus disease Moderate lower cervical spine degenerative change Bovine type aortic branching pattern Reviewed by: Nicolas Ayala MD on 02/25/2022 5:03 PM AKLOTTIE Approved by: Nicolas Ayala MD on 02/25/2022 5:03 PM MALOTTIE Station ID: [id number]
[2022-02-25] MEDS ORDERED: CALCIUM CARBONATE CHEW 500 MG TABLET PO PRN (18:59)
[2022-02-25] MEDS: SODIUM CHLORIDE 0.9% 1,000 ML IV SCH (19:01)
[2022-02-25] MEDS: PANTOPRAZOLE 40 MG TABLET PO SCH (20:13)
[2022-02-25] MEDS: APIXABAN 5 MG TABLET PO SCH (21:28)
[2022-02-25] MEDS: METOPROLOL TARTRATE 50 MG TABLET PO SCH (21:28)
[2022-02-26] MEDS: SODIUM CHLORIDE 0.9% 1,000 ML IV SCH ×3 (03:11→20:19)
[2022-02-26] MEDS: MORPHINE 2 MG/ML CARPUJECT IVP PRN (03:20)
[2022-02-26] MEDS: SODIUM CHLORIDE FLUSH 0.9% 10 ML SYRINGE IVP SCH ×3 (03:21→18:08)
[2022-02-26] MEDS: SODIUM CHLORIDE FLUSH 0.9% 10 ML SYRINGE IVP PRN ×2 (05:31→20:31)
[2022-02-26 05:50] LABS: BASOPHILS % (AUTO) 0.4 %; EOSINOPHILS % (AUTO) 0.1 %; HGB - HEMOGLOBIN 8.4 g/dL (14.0-18.0); MEAN CORPUSCULAR HEMOGLOBIN 27.9 pg (27.0-31.0); MEAN CORPUSCULAR HGB CONC 31.1 g/dL (32.0-36.0); MEAN CORPUSCULAR VOLUME 89.7 fL (80.0-94.0); MEAN PLATELET VOLUME 8.9 fL (7.4-11.4); MONOCYTES % (AUTO) 13.2 %; NEUTROPHILS % (AUTO) 73.8 %; PLT - PLATELET COUNT 363 10^3/uL (130-450); RED BLOOD COUNT 3.01 10^6/uL (4.70-6.10); RED CELL DISTRIBUTION WIDTH 16.2 % (12.0-15.0); WHITE BLOOD COUNT 16.7 x10^3/uL (4.8-10.8)
[2022-02-26 05:51] LABS: ABNORMAL LYMPHS % (MANUAL) 0 %
[2022-02-26 05:55] LABS: ABSOLUTE RETICS # AUTO 0.079 10^6/uL (0.020-0.110); RETICULOCYTE COUNT % (AUTO) 2.63 % (0.5-2.3)
[2022-02-26 06:00] LABS: CALCIUM, IONIZED 1.1 mmol/L (1.15-1.33); VBG PH 7.346 (7.31-7.41)
[2022-02-26 06:01] LABS: CALCIUM 8.4 mg/dL (8.5-10.3); CREATININE 1.2 mg/dL (0.6-1.2); POTASSIUM 3.8 mmol/L (3.5-5.0)
[2022-02-26 06:14] LABS: % IRON SATURATION 3 % (20-50); BAND NEUTROPHILS % (MANUAL) 1 %; IRON 14 ug/dL (45-182); LYMPHOCYTES % (MANUAL) 18 %; MONOCYTES # (MANUAL) 1.3 10^3/uL (0.0-1.0); NEUTROPHILS # (MANUAL) 12.4 10^3/uL (1.5-6.6); PLATELET ESTIMATE, MANUAL NORMAL (130-450,000) (NORMAL); PLATELET MORPHOLOGY NORMAL APPEARANCE (NORMAL); RBC MORPHOLOGY (MULTIPLE) NORMAL APPEARANCE (NORMAL); TOTAL IRON BINDING CAPACITY 420 ug/dL (250-450); TRANSFERRIN 300 mg/dL (180-329); WBC MORPHOLOGY (MULTIPLE) NORMAL APPEARANCE (NORMAL)
[2022-02-26 06:15] LABS: DIFFERENTIAL COMMENT MANUAL DIFFERENTIAL
[2022-02-26 06:27] LABS: FERRITIN 198.7 ng/mL (23.9-336.2)
[2022-02-26 06:51] LABS: MAGNESIUM 2.1 mg/dL (1.7-2.8); PHOSPHORUS 3.4 mg/dL (2.5-4.6)
[2022-02-26] MEDS ORDERED: POTASSIUM CHLOR 20 MEQ/100 ML 20 MEQ/100 ML BAG IV ONE (06:55)
[2022-02-26] MEDS: PANTOPRAZOLE 40 MG TABLET PO SCH (07:02)
--- NOTE | 2022-02-26 08:02 | PROVIDER PROGRESS NOTE ---
Subjective - Prog Note Date Prog Note Date: 02/26/22 Prog Note Time: 15:26 - Subjective Subjective: He is pretty spooked right now. We went over the mechanism of injury. I carefully explained to him that he was being put to sleep with the propofol when he had his reaction. He thought he already had his endoscopy and that everything happened after the endoscopy. I was so regretful informing him that he never even got to the endoscopy. I had resumed IV fluids on him yesterday because of poor p.o. intake. He just was not eating or drinking very much. Yesterday had 3417 in. 2332 out. Today he has had 2072 and and is already urinated 1575. We went over his preprocedure history again. Trying to figure out why he had a lung collapse. He does remember feeling "weird" that day. He felt lightheaded, chest was tight, but his cough is the same as always. He attributed the lightheadedness and tightness to the fact that he just been doing a prep all night long and getting up to the bathroom. No fever, no chills. No shortness of breath. He is afraid of going home because he lives by himself. He is worried that "what if something happens when I am at home by myself". I told him that lung collapse is a pretty dramatic thing and that he would feel it but he would not necessarily pass out. He would have time to call 911 and he felt better about that. He does describe to the RN symptoms of sleep apnea. He snores quite a bit, and will wake up in the morning completely exhausted. He also startles himself awake at night but he cannot figure out why he is waking up. This is in addition to his daily phlegm production he described to me yesterday. Later in the morning he went into A. fib. He is got diltiazem 10 and diltiazem 15. No real effect with the 10 mg but with the 15 mg he is down to 90. He was as high as 140 and he had no symptoms with this. He did not feel the palpitations. Current Medications - Current Medications Current Medications: Active Medications Acetaminophen (Acetaminophen 325 Mg Tablet) 650 mg PO Q4HR PRN PRN Reason: Pain 1 to 4, or Fever Last Admin: 02/26/22 08:21 Dose: 650 mg Albuterol (Albuterol Neb 2.5 Mg/3 Ml) 2.5 mg INH Q2HR PRN PRN Reason: Wheezing Last Admin: 02/25/22 22:41 Dose: 2.5 mg Amlodipine Besylate (Amlodipine 5 Mg Tablet) 10 mg PO DAILY [facility] Last Admin: 02/26/22 08:21 Dose: 10 mg Apixaban (Apixaban 5 Mg Tablet) 5 mg PO BID [facility] Last Admin: 02/26/22 08:22 Dose: 5 mg Calcium Carbonate/Glycine (Calcium Carbonate Chew 500 Mg Tablet) 500 mg PO TID PRN PRN Reason: INDIGESTION Last Admin: 02/25/22 20:12 Dose: 500 mg Ceftriaxone Sodium 2 gm/ (Sodium Chloride) 100 mls @ 200 mls/hr IV DAILY [facility] Last Infusion: 02/26/22 09:35 Dose: Infused Azithromycin 500 mg/ Sodium (Chloride) 250 mls @ 250 mls/hr IV DAILY [facility] Stop: 02/27/22 09:59 Last Infusion: 02/26/22 10:10 Dose: Infused Sodium Chloride (Normal Saline 0.9%) 1,000 mls @ 125 mls/hr IV .Q8H [facility] Last Admin: 02/26/22 12:43 Dose: 125 mls/hr Lidocaine (Lidocaine Patch 5%) 1 patch TOP DAILY PRN PRN Reason: PAIN Last Admin: 02/26/22 15:22 Dose: 1 patch Metoprolol Tartrate (Metoprolol Tartrate 50 Mg Tablet) 50 mg PO BID [facility] Last Admin: 02/26/22 08:22 Dose: 50 mg Morphine Sulfate (Morphine 2 Mg/Ml Carpuject) 2 mg IVP Q1H PRN PRN Reason: Pain 8 to 10 Last Admin: 02/26/22 03:20 Dose: 2 mg Ondansetron HCl (Ondansetron Odt 4 Mg Tablet) 4 mg TL Q6HR PRN PRN Reason: Nausea / Vomiting Ondansetron HCl (Ondansetron 4 Mg/2 Ml Vial) 4 mg IVP Q6HR PRN PRN Reason: Nausea / Vomiting Pantoprazole Sodium (Pantoprazole 40 Mg Tablet) 40 mg PO QDAC [facility] Last Admin: 02/26/22 07:02 Dose: 40 mg Simethicone (Simethicone Chew 80 Mg Tablet) 80 mg PO Q6HR PRN PRN Reason: Gas Sodium Chloride (Sodium Chloride Flush 0.9% 10 Ml Syringe) 10 ml IVP 0100,0900,1700 SIMÓN Last Admin: 02/26/22 08:24 Dose: 10 ml Sodium Chloride (Sodium Chloride Flush 0.9% 10 Ml Syringe) 10 ml IVP PRN PRN PRN Reason: NEEDED PER PROVIDER ORDERS Last Admin: 02/26/22 05:31 Dose: 30 ml Amlodipine Besylate [Norvasc] 10 mg PO DAILY 02/20/22 Benazepril HCl 40 mg PO DAILY 02/20/22 Metoprolol Tartrate [Lopressor] 50 mg PO BID 02/20/22 Omeprazole Magnesium 20 mg PO DAILY PRN 02/20/22 Rivaroxaban [Xarelto] 20 mg PO QPM 02/20/22 Objective - Vital Signs/Intake & Output Reviewed Vital Signs: Yes Vital Signs: Vital Signs x48h Temp Pulse Resp BP Pulse Ox O2 Flow Rate 02/26/22 07:00 89 18 157/90 H 97 3 02/26/22 06:52 19 88 L 5 02/26/22 06:06 89 19 155/87 H 94 3 02/26/22 05:06 36.9 C 02/26/22 05:00 94 22 145/86 H 97 3 02/26/22 04:06 93 19 147/75 H 98 3 02/26/22 03:00 99 22 159/74 H 93 3 02/26/22 02:04 99 22 98 3 02/26/22 01:32 151/89 H 02/26/22 01:07 93 18 96 3 02/26/22 00:00 86 21 141/80 H 94 3 Intake & Output: Intake & Output 02/23/22 02/24/22 02/25/22 02/26/22 23:59 23:59 23:59 23:59 Intake Total 6740.019 4658.649 854.166 Output Total 1100 2332 1575 Balance 863.522 3547.649 -720.834 - Objective General Appearance: positive: No acute distress, Alert, Other (Very pleasant affable male sitting upright in a chair with a nasal tone of voice, and hoiked up 2 loogies for me during my 30-minute exam.) Eyes Bilateral: positive: PERRL, EOMI ENT: positive: Other (He has nasal drainage. Blows his nose. Also quite a bit of phlegm.) Neck: positive: No JVD Respiratory: positive: No respiratory distress, Other (Stridor when he speaks is much improved from yesterday) Cardiovascular: positive: Irregularly irregular, Tachycardia (At times.) Abdomen: positive: Non-tender, No organomegaly, Nml bowel sounds, Other (Complaining of abdominal distention and gas. We resumed his proton pump inhibitor and Tums yesterday. Today I am adding Mylicon) Skin: positive: Warm, Dry Extremities: positive: Full ROM, No pedal edema Neurologic/Psychiatric: positive: Oriented x3, CN's nml (2-12), Motor nml (Able to sit up in a chair, go to the bathroom. He complains of quite a bit of back pain.) - Lab Results Fish Bones: 02/26/22 05:30 02/26/22 05:30 Other Labs: Lab Results x24hrs 02/26/22 02/26/22 02/26/22 Range/Units 05:30 05:30 05:30 WBC (4.8-10.8) x10^3/uL RBC 3.00 L (4.70-6.10) 10^6/uL Hgb (14.0-18.0) g/dL Hct (42.0-52.0) % MCV (80.0-94.0) fL MCH (27.0-31.0) pg MCHC (32.0-36.0) g/dL RDW (12.0-15.0) % Plt Count (130-450) 10^3/uL MPV (7.4-11.4) fL Reticulocyte % (Auto) 2.63 H (0.5-2.3) % Neut # (Auto) Lymph # (Auto) [place] # (Auto) Eos # (Auto) Baso # (Auto) Absolute Nucleated RBC Total Counted Band Neuts % (Manual) (0 - 10) % Abnorm Lymph % (Manual) % Nucleated RBC % Neutrophils # (Manual) (1.5-6.6) 10^3/uL Lymphocytes # (Manual) (1.5-3.5) 10^3/uL Monocytes # (Manual) (0.0-1.0) 10^3/uL Eosinophils # (Manual) (0-0.7) 10^3/uL Basophils # (Manual) (0-0.1) 10^3/uL Differential Comment WBC Morphology (NORMAL) Platelet Estimate (NORMAL) Platelet Morphology (NORMAL) RBC Morph Micro Appear (NORMAL) Absolute Retic 0.079 (0.020-0.110) 10^6/uL VBG pH (7.31-7.41) Ionized Calcium (1.15-1.33) mmol/L Sodium (135-145) mmol/L Potassium (3.5-5.0) mmol/L Chloride (101-111) mmol/L Carbon Dioxide (21-32) mmol/L Anion Gap (6-13) BUN (6-20) mg/dL Creatinine (0.6-1.2) mg/dL Estimated GFR (MDRD) (>89) Glucose (70-100) mg/dL Calcium (8.5-10.3) mg/dL Phosphorus 3.4 (2.5-4.6) mg/dL Magnesium 2.1 (1.7-2.8) mg/dL Iron 14 L (45-182) ug/dL TIBC 420 (250-450) ug/dL % Saturation 3 L (20-50) % Transferrin 300 (180-329) mg/dL Ferritin (23.9-336.2) ng/mL Lactate Dehydrogenase (91-225) IU/L Vitamin B12 (180-914) pg/mL 02/26/22 02/26/22 02/26/22 Range/Units 05:30 05:30 05:30 WBC (4.8-10.8) x10^3/uL RBC (4.70-6.10) 10^6/uL Hgb (14.0-18.0) g/dL Hct (42.0-52.0) % MCV (80.0-94.0) fL MCH (27.0-31.0) pg MCHC (32.0-36.0) g/dL RDW (12.0-15.0) % Plt Count (130-450) 10^3/uL MPV (7.4-11.4) fL Reticulocyte % (Auto) (0.5-2.3) % Neut # (Auto) Lymph # (Auto) [place] # (Auto) Eos # (Auto) Baso # (Auto) Absolute Nucleated RBC Total Counted Band Neuts % (Manual) (0 - 10) % Abnorm Lymph % (Manual) % Nucleated RBC % Neutrophils # (Manual) (1.5-6.6) 10^3/uL Lymphocytes # (Manual) (1.5-3.5) 10^3/uL Monocytes # (Manual) (0.0-1.0) 10^3/uL Eosinophils # (Manual) (0-0.7) 10^3/uL Basophils # (Manual) (0-0.1) 10^3/uL Differential Comment WBC Morphology (NORMAL) Platelet Estimate (NORMAL) Platelet Morphology (NORMAL) RBC Morph Micro Appear (NORMAL) Absolute Retic (0.020-0.110) 10^6/uL VBG pH 7.346 (7.31-7.41) Ionized Calcium 1.10 L (1.15-1.33) mmol/L Sodium (135-145) mmol/L Potassium (3.5-5.0) mmol/L Chloride (101-111) mmol/L Carbon Dioxide (21-32) mmol/L Anion Gap (6-13) BUN (6-20) mg/dL Creatinine (0.6-1.2) mg/dL Estimated GFR (MDRD) (>89) Glucose (70-100) mg/dL Calcium (8.5-10.3) mg/dL Phosphorus (2.5-4.6) mg/dL Magnesium (1.7-2.8) mg/dL Iron (45-182) ug/dL TIBC (250-450) ug/dL % Saturation (20-50) % Transferrin (180-329) mg/dL Ferritin 198.7 (23.9-336.2) ng/mL Lactate Dehydrogenase 176 (91-225) IU/L Vitamin B12 338 (180-914) pg/mL 02/26/22 02/26/22 02/25/22 Range/Units 05:30 05:30 09:21 WBC 16.7 H (4.8-10.8) x10^3/uL RBC 3.01 L (4.70-6.10) 10^6/uL Hgb 8.4 L (14.0-18.0) g/dL Hct 27.0 L (42.0-52.0) % MCV 89.7 (80.0-94.0) fL MCH 27.9 (27.0-31.0) pg MCHC 31.1 L (32.0-36.0) g/dL RDW 16.2 H (12.0-15.0) % Plt Count 363 (130-450) 10^3/uL MPV 8.9 (7.4-11.4) fL Reticulocyte % (Auto) (0.5-2.3) % Neut # (Auto) Not Reportable Lymph # (Auto) Not Reportable [place] # (Auto) Not Reportable Eos # (Auto) Not Reportable Baso # (Auto) Not Reportable Absolute Nucleated RBC Not Reportable Total Counted 100 Band Neuts % (Manual) 1 (0 - 10) % Abnorm Lymph % (Manual) 0 % Nucleated RBC % Not Reportable Neutrophils # (Manual) 12.4 H (1.5-6.6) 10^3/uL Lymphocytes # (Manual) 3.0 (1.5-3.5) 10^3/uL Monocytes # (Manual) 1.3 H (0.0-1.0) 10^3/uL Eosinophils # (Manual) 0.0 (0-0.7) 10^3/uL Basophils # (Manual) 0.0 (0-0.1) 10^3/uL Differential Comment MANUAL DIFFERENTIAL WBC Morphology NORMAL APPEARANCE (NORMAL) Platelet Estimate NORMAL (130-450,000) (NORMAL) Platelet Morphology NORMAL APPEARANCE (NORMAL) RBC Morph Micro Appear NORMAL APPEARANCE (NORMAL) Absolute Retic (0.020-0.110) 10^6/uL VBG pH (7.31-7.41) Ionized Calcium (1.15-1.33) mmol/L Sodium 136 (135-145) mmol/L Potassium 3.8 4.1 (3.5-5.0) mmol/L Chloride 102 (101-111) mmol/L Carbon Dioxide 24 (21-32) mmol/L Anion Gap 10.0 (6-13) BUN 7 (6-20) mg/dL Creatinine 1.2 (0.6-1.2) mg/dL Estimated GFR (MDRD) 75 L (>89) Glucose 118 H (70-100) mg/dL Calcium 8.4 L (8.5-10.3) mg/dL Phosphorus (2.5-4.6) mg/dL Magnesium 2.2 (1.7-2.8) mg/dL Iron (45-182) ug/dL TIBC (250-450) ug/dL % Saturation (20-50) % Transferrin (180-329) mg/dL Ferritin (23.9-336.2) ng/mL Lactate Dehydrogenase (91-225) IU/L Vitamin B12 (180-914) pg/mL ABX Reporting Has patient been on IV antibiotics over the past 48 hours?: Yes Assessment/Plan - Problem List (1) Acute respiratory failure with hypoxia Impression: Pt was intubated following intractable oxygen desaturation post sedation with IV propofol for an upper and lower endoscopy. He was intubated in the OR and was admitted to the ICU. We obtained a CT pulmonary angiogram to assess for pulmonary embolus. No PE was seen. Left lower lobe collapse was present. Calcifications of the coronary arteries was mild. Thyroid was normal size. Visualized portions of the upper abdomen demonstrated a left adrenal nodule that was 22 mm. Kept intubated overnight and extubated 02/25/22 with good nif, BP, follwoing commands. Very calm man. Repeated his chest x-ray which showed improved aeration of the lungs. There is still some atelectasis seen in the left lower lung but no pneumothorax or large pleural effusion. Overall much improved aeration. Heart size mildly to moderately enlarged. Mediastinal contours appear normal. He was bringing up quite a bit of phlegm yesterday and as such submitted for culture. Started on antibiotics.So far still requiring high amount of oxygen to maintain O2 sats. But no fever, no other vital sign abnormality. When he speaks he has stridor, and it may be laryngeal due to intubation and extubation. Anesthesia has seen a soft tissue mass in his neck when they were putting in his central line. TSH is noted to be gradually dropping. I did a CT of the neck and other than slight parathyroid enlargement nothing else was seen. D/Dx: mucus plug is the only thing I can think of. Plan: Transfer to [facility]. Check PTH Continue to treat with antibiotics Day #2/5 Rocephin, day #2/3 azithromycin nebulizers were added yesterday, encourage ambulation (2) Collapse of left lung Conclusion/Plan: A chest/thorax CTA was performed with IV contrast, the impressions of the imagin g results are as follows: 1. No PE 2. Malpositioned NGT 3. Left lower lobe collapse 4. Left adrenal adenoma 5. Coronary artery disease Plan: No real cause elicited from him other than may be a mucous plug. He produces daily phlegm. This is not negative pressure edema. CT did not show foreign body. CT did not show an endobronchial lesion. I would want to either see a chest x-ray in a months, as well as possibly a pulmonary consult for [facility] hoscopy in the outpatient setting. During this admission not much more of a work-up can be provided. (3)atrial fibrillation with RVR Conclusion/Plan: Previously diagnosed condition. It was found on a routine visit when he was seeing this provider. This was in October 2021 and during that visit his heart rate was noted to be elevated. He was asymptomatic with this. EKG showed atrial fibrillation and he was put on metoprolol and Xarelto. He was then refer red to cardiology for stress test and echo. Those are scheduled for March. TSH in October was newly low. His usual TSH is started at over 2 and over the course of time I have noticed that they went to 1 and then below 1. The event which led him to be hospitalized is likely pulmonary in origin, but it would be prudent to obtain an echocardiogram. Unfortunately, we are unable to do so due to when the tech is available and will not be able to until Sunday when there is a bioinformatics team member in house. This may mean that he will need to obtain an echocardiogram as an outpatient. Additionally, he should have a stress test as an outpatient. I repeated an EKG 02/25. Nursing felt that he may be having ST elevation on his telemetry leads. Repeat shows sinus tachycardia. Sharp T wave inversions that were present October 2016, December 24, 2021 are less evident today. There is still some slight inversions of the T waves in V5 and V6 but T waves are now become peaked and normalized in V2 through V4. He has nonspecific ST elevation in V2 and V3 this nondiagnostic. Trended troponins were unremarkable. I will be resuming his anticoagulant And his metoprolol. Today he went back into atrial fibrillation with RVR. And definitely needs to have that echo in the outpatient setting. (4) Hypertension Conclusion/Plan: Previously diagnosed hypertension. Plan: Resume metoprolol and amlodipine today. If his blood pressure tolerates that, I will then resume his benazepril. (5) Anemia Baseline hemoglobin is usually 12.1-13.5. With his colonoscopy he was 8.8. The anemia was the entire reason he was getting an upper and lower endoscopy. Today he is 8. Anemia panel shows iron deficiency anemia. Normal B12. High retake count but absolute reticulocyte count normal. He is already fecal occult blood positive. He will eventually need the upper and lower endoscopy to be completed. It was a respiratory event that canceled his EGD and colonoscopy. He still has not had his stress test and echocardiogram. I will leave to the discretion of his PCP and seismograph shooter to see if they want to get those studies done before the next attempt at EGD and colonoscopy
[2022-02-26] MEDS: ACETAMINOPHEN 325 MG TABLET PO PRN ×2 (08:21→16:23)
[2022-02-26] MEDS: amLODIPine 5 MG TABLET PO SCH (08:21)
[2022-02-26] MEDS: APIXABAN 5 MG TABLET PO SCH ×2 (08:22→20:19)
[2022-02-26] MEDS: METOPROLOL TARTRATE 50 MG TABLET PO SCH ×2 (08:22→22:01)
[2022-02-26] MEDS: cefTRIAXone 2 GM in SODIUM CHLORIDE 0.9% MINIBAG 100 ML IV SCH (09:02)
[2022-02-26] MEDS: AZITHROMYCIN INJ 500 MG in SODIUM CHLORIDE 0.9% 250 ML IV SCH (09:04)
[2022-02-26] MEDS ORDERED: diltiaZEM INJ 5 MG/ML VIAL IVP ONE ×3 (12:06→17:36)
[2022-02-26] MEDS ORDERED: LIDOCAINE PATCH 5% TOP PRN (14:34)
[2022-02-26] MEDS ORDERED: SIMETHICONE CHEW 80 MG TABLET PO PRN (14:38)
[2022-02-26] MEDS ORDERED: TEMAZEPAM 15 MG CAPSULE PO PRN (16:01)
[2022-02-26] MEDS: diltiaZEM INJ 125 MG in DEXTROSE 5% 100 ML IV SCH (18:06)
[2022-02-26] MEDS ORDERED: AMIODARONE 150 MG/100 ML 100 ML IV ONE (18:55)
[2022-02-26] MEDS ORDERED: AMIODARONE 360 MG/200 ML 200 ML IV ONE (19:04)
[2022-02-27] MEDS ORDERED: AMIODARONE 360 MG/200 ML 200 ML IV SCH (01:03)
[2022-02-27] MEDS: SODIUM CHLORIDE 0.9% 1,000 ML IV SCH ×2 (04:00→12:51)
[2022-02-27] MEDS: SODIUM CHLORIDE FLUSH 0.9% 10 ML SYRINGE IVP SCH ×3 (04:01→15:53)
[2022-02-27] MEDS: SODIUM CHLORIDE FLUSH 0.9% 10 ML SYRINGE IVP PRN (04:17)
[2022-02-27 04:28] LABS: BASOPHILS % (AUTO) 0.3 %; EOSINOPHILS % (AUTO) 0.6 %; HCT - HEMATOCRIT 24.4 % (42.0-52.0); HGB - HEMOGLOBIN 7.7 g/dL (14.0-18.0); LYMPHOCYTES % (AUTO) 13.7 %; MEAN CORPUSCULAR HEMOGLOBIN 27.7 pg (27.0-31.0); MEAN CORPUSCULAR HGB CONC 31.6 g/dL (32.0-36.0); MEAN CORPUSCULAR VOLUME 87.8 fL (80.0-94.0); MEAN PLATELET VOLUME 8.9 fL (7.4-11.4); MONOCYTES % (AUTO) 11.6 %; NEUTROPHILS % (AUTO) 73.4 %; PLT - PLATELET COUNT 334 10^3/uL (130-450); RED BLOOD COUNT 2.78 10^6/uL (4.70-6.10); RED CELL DISTRIBUTION WIDTH 15.8 % (12.0-15.0); WHITE BLOOD COUNT 14.3 x10^3/uL (4.8-10.8)
[2022-02-27 04:41] LABS: CREATININE 1.3 mg/dL (0.6-1.2); MAGNESIUM 2.1 mg/dL (1.7-2.8); PHOSPHORUS 3.2 mg/dL (2.5-4.6); POTASSIUM 3.8 mmol/L (3.5-5.0)
[2022-02-27 04:42] LABS: ABNORMAL LYMPHS % (MANUAL) 0 %; BAND NEUTROPHILS % (MANUAL) 0 %
[2022-02-27 04:43] LABS: DIFFERENTIAL COMMENT MANUAL DIFFERENTIAL; LYMPHOCYTES # (MANUAL) 1.7 10^3/uL (1.5-3.5); LYMPHOCYTES % (MANUAL) 12 %; NEUTROPHILS # (MANUAL) 11.6 10^3/uL (1.5-6.6); PLATELET ESTIMATE, MANUAL NORMAL (130-450,000) (NORMAL); PLATELET MORPHOLOGY NORMAL APPEARANCE (NORMAL); RBC MORPHOLOGY (MULTIPLE) NORMAL APPEARANCE (NORMAL); WBC MORPHOLOGY (MULTIPLE) NORMAL APPEARANCE (NORMAL)
[2022-02-27] MEDS ORDERED: POTASSIUM CHLOR 20 MEQ/100 ML 20 MEQ/100 ML BAG IV ONE (05:22)
[2022-02-27 05:38] LABS: VBG PH 7.353 (7.31-7.41)
[2022-02-27 05:39] LABS: CALCIUM, IONIZED 1.1 mmol/L (1.15-1.33)
[2022-02-27] MEDS: PANTOPRAZOLE 40 MG TABLET PO SCH (07:08)
[2022-02-27] MEDS: amLODIPine 5 MG TABLET PO SCH (08:03)
[2022-02-27] MEDS: METOPROLOL TARTRATE 50 MG TABLET PO SCH ×2 (08:03→20:53)
[2022-02-27] MEDS: APIXABAN 5 MG TABLET PO SCH ×2 (08:03→20:54)
[2022-02-27] MEDS: cefTRIAXone 2 GM in SODIUM CHLORIDE 0.9% MINIBAG 100 ML IV SCH (08:04)
[2022-02-27] MEDS: AZITHROMYCIN INJ 500 MG in SODIUM CHLORIDE 0.9% 250 ML IV SCH (08:04)
[2022-02-27] MEDS: AMIODARONE 200 MG TABLET PO SCH (08:34)
[2022-02-27] MEDS: diltiaZEM INJ 125 MG in DEXTROSE 5% 100 ML IV SCH (08:36)
[2022-02-27] MEDS: ALBUTEROL NEB 2.5 MG/3 ML INH PRN ×2 (08:56→20:23)
--- NOTE | 2022-02-27 17:39 | PROVIDER PROGRESS NOTE ---
Subjective - Prog Note Date Prog Note Date: 02/27/22 Prog Note Time: 17:39 - Subjective Subjective: I have been asking the patient on a daily basis if he wanted me to speak to any family members and he is declined. He did reluctantly agree to let me speak to his daughter if she call. Elizabeth Arroyo did asked to speak to me at [phone]. Ms. Arroyo wanted to let me know that dad is a heavy drinker. Before his colonoscopy and esophagogastroduodenoscopy he had 6 days of binge drinking. He stopped drinking and had a pretty rough day Sunday before the procedures. Sunday he began having bloody stool and Sunday had bloody stool. he started the prep and Sunday was the procedure. His atrial fibrillation has recurred. He will convert back to sinus then go back into A. fib. I did load him with amiodarone yesterday via IV three-step loading. Switch him to p.o. amiodarone today. Started p.o. Cardizem 60 3 times daily today. He stayed in sinus rhythm. For about 30 minutes today he went back into A. fib in the 120s, 130s. He also has episodes of atrial flutter. At 17: 41 he converted back to sinus rhythm sinus tachycardia. Current Medications - Current Medications Current Medications: Active Medications Generic Name Dose Route Start Last Admin Trade Name Inderjitq PRN Reason Stop Dose Admin Acetaminophen 650 mg 02/24/22 08:52 02/26/22 16:23 Acetaminophen 325 Mg Tablet PO 650 mg Q4HR PRN Administration Pain 1 to 4, or Fever Albuterol 2.5 mg 02/24/22 10:05 02/27/22 08:56 Albuterol Neb 2.5 Mg/3 Ml INH 2.5 mg Q2HR PRN Administration Wheezing Amiodarone HCl 200 mg 02/27/22 09:00 02/27/22 08:34 Amiodarone 200 Mg Tablet PO 200 mg DAILY SIMÓN Administration Amlodipine Besylate 10 mg 02/26/22 09:00 02/27/22 08:03 Amlodipine 5 Mg Tablet PO 10 mg DAILY SIMÓN Administration Apixaban 5 mg 02/25/22 21:00 02/27/22 08:03 Apixaban 5 Mg Tablet PO 5 mg BID SIMÓN Administration Calcium Carbonate/Glycine 500 mg 02/25/22 18:59 02/25/22 20:12 Calcium Carbonate Chew 500 Mg Tablet PO 500 mg TID PRN Administration INDIGESTION Diltiazem HCl 60 mg 02/27/22 09:00 02/27/22 17:03 Diltiazem 60 Mg Tablet PO 60 mg Q6HR SIMÓN Administration Ceftriaxone Sodium 2 gm/ 100 mls @ 200 mls/hr 02/25/22 09:00 02/27/22 08:34 Sodium Chloride IV Infused DAILY SIMÓN Infusion Lidocaine 1 patch 02/26/22 14:34 02/26/22 15:22 Lidocaine Patch 5% TOP 1 patch DAILY PRN Administration PAIN Metoprolol Tartrate 50 mg 02/25/22 21:00 02/27/22 08:03 Metoprolol Tartrate 50 Mg Tablet PO 50 mg BID SIMÓN Administration Metoprolol Tartrate 5 mg 02/27/22 17:45 Metoprolol 5 Mg/5 Ml Vial IVP Q6H PRN Tachycardia Morphine Sulfate 2 mg 02/24/22 15:47 02/26/22 03:20 Morphine 2 Mg/Ml Carpuject IVP 2 mg Q1H PRN Administration Pain 8 to 10 Ondansetron HCl 4 mg 02/24/22 08:52 Ondansetron Odt 4 Mg Tablet TL Q6HR PRN Nausea / Vomiting Ondansetron HCl 4 mg 02/24/22 08:52 Ondansetron 4 Mg/2 Ml Vial IVP Q6HR PRN Nausea / Vomiting Pantoprazole Sodium 40 mg 02/25/22 19:00 02/27/22 07:08 Pantoprazole 40 Mg Tablet PO 40 mg QDAC SIMÓN Administration Simethicone 80 mg 02/26/22 14:38 Simethicone Chew 80 Mg Tablet PO Q6HR PRN Gas Sodium Chloride 10 ml 02/24/22 09:00 02/27/22 15:53 Sodium Chloride Flush 0.9% 10 Ml Syringe IVP 10 ml 0100,0900,1700 SIMÓN Administration Sodium Chloride 10 ml 02/24/22 08:52 02/26/22 20:31 Sodium Chloride Flush 0.9% 10 Ml Syringe IVP 10 ml PRN PRN Administration NEEDED PER PROVIDER ORDERS Sodium Chloride 20 ml 02/26/22 21:19 02/27/22 04:17 Sodium Chloride Flush 0.9% 10 Ml Syringe IVP 20 ml PRN PRN Administration After Blood Draw Temazepam 15 mg 02/26/22 16:01 Temazepam 15 Mg Capsule PO QPM PRN Insomnia Amlodipine Besylate [Norvasc] 10 mg PO DAILY 02/20/22 Benazepril HCl 40 mg PO DAILY 02/20/22 Metoprolol Tartrate [Lopressor] 50 mg PO BID 02/20/22 Omeprazole Magnesium 20 mg PO DAILY PRN 02/20/22 Rivaroxaban [Xarelto] 20 mg PO QPM 02/20/22 Objective - Vital Signs/Intake & Output Reviewed Vital Signs: Yes Vital Signs: Vital Signs x48h Temp Pulse Resp BP BP Pulse Ox O2 Flow Rate 02/27/22 17:03 155/80 H 02/27/22 17:00 105 H 24 155/80 H 93 02/27/22 16:00 80 19 140/81 H 97 02/27/22 15:00 92 29 H 121/61 95 02/27/22 14:00 77 24 123/74 98 02/27/22 13:00 68 22 113/62 100 02/27/22 12:03 137/70 H 02/27/22 12:00 36.8 C 75 22 137/70 H 99 3 02/27/22 11:00 61 22 103/64 100 3 02/27/22 10:00 67 22 110/74 99 3 Intake & Output: Intake & Output 02/24/22 02/25/22 02/26/22 02/27/22 23:59 23:59 23:59 23:59 Intake Total 9387.956 9750.649 3723.573 3400.511 Output Total 1100 2332 2650 925 Balance 588.883 8719.649 9231.642 1835.511 - Objective General Appearance: positive: Alert, Other (5 foot 9 inch black male weighing 102 kg. Day by day his stridor improves but the voice is still hoarse) Eyes Bilateral: positive: PERRL, EOMI ENT: positive: No signs of dehydration Neck: positive: No JVD. negative: Stiff neck Respiratory: positive: No respiratory distress, Wheezes (Occasionally. Left lung now sounds normal.) Cardiovascular: positive: Regular rate & rhythm (But intermittent runs of atrial fibrillation and atrial flutter) Abdomen: positive: Non-tender, No organomegaly, Nml bowel sounds, No distention, Other (Daughter reports that he has had increasing abdominal distention and protuberance getting steadily worse over the last 2 years) Skin: positive: Warm, Dry Extremities: positive: Full ROM, No pedal edema Neurologic/Psychiatric: positive: Oriented x3, CN's nml (2-12), Motor nml - Lab Results Fish Bones: 02/27/22 04:15 02/27/22 07:40 Other Labs: Lab Results x24hrs 02/27/22 02/27/22 02/27/22 Range/Units 07:40 05:25 04:15 WBC (4.8-10.8) x10^3/uL RBC (4.70-6.10) 10^6/uL Hgb (14.0-18.0) g/dL Hct (42.0-52.0) % MCV (80.0-94.0) fL MCH (27.0-31.0) pg MCHC (32.0-36.0) g/dL RDW (12.0-15.0) % Plt Count (130-450) 10^3/uL MPV (7.4-11.4) fL Neut # (Auto) Lymph # (Auto) Dare # (Auto) Eos # (Auto) Baso # (Auto) Absolute Nucleated RBC Total Counted Band Neuts % (Manual) (0 - 10) % Abnorm Lymph % (Manual) % Nucleated RBC % Neutrophils # (Manual) (1.5-6.6) 10^3/uL Lymphocytes # (Manual) (1.5-3.5) 10^3/uL Monocytes # (Manual) (0.0-1.0) 10^3/uL Eosinophils # (Manual) (0-0.7) 10^3/uL Basophils # (Manual) (0-0.1) 10^3/uL Differential Comment WBC Morphology (NORMAL) Platelet Estimate (NORMAL) Platelet Morphology (NORMAL) RBC Morph Micro Appear (NORMAL) VBG pH 7.353 (7.31-7.41) Ionized Calcium 1.10 L (1.15-1.33) mmol/L Sodium 136 (135-145) mmol/L Potassium 4.0 3.8 (3.5-5.0) mmol/L Chloride 104 (101-111) mmol/L Carbon Dioxide 24 (21-32) mmol/L Anion Gap 8.0 (6-13) BUN 8 (6-20) mg/dL Creatinine 1.3 H (0.6-1.2) mg/dL Estimated GFR (MDRD) 69 L (>89) Glucose 132 H (70-100) mg/dL Calcium 8.0 L (8.5-10.3) mg/dL Phosphorus 3.2 (2.5-4.6) mg/dL Magnesium 2.1 (1.7-2.8) mg/dL 02/27/22 Range/Units 04:15 WBC 14.3 H (4.8-10.8) x10^3/uL RBC 2.78 L (4.70-6.10) 10^6/uL Hgb 7.7 L (14.0-18.0) g/dL Hct 24.4 L (42.0-52.0) % MCV 87.8 (80.0-94.0) fL MCH 27.7 (27.0-31.0) pg MCHC 31.6 L (32.0-36.0) g/dL RDW 15.8 H (12.0-15.0) % Plt Count 334 (130-450) 10^3/uL MPV 8.9 (7.4-11.4) fL Neut # (Auto) Not Reportable Lymph # (Auto) Not Reportable Dare # (Auto) Not Reportable Eos # (Auto) Not Reportable Baso # (Auto) Not Reportable Absolute Nucleated RBC Not Reportable Total Counted 100 Band Neuts % (Manual) 0 (0 - 10) % Abnorm Lymph % (Manual) 0 % Nucleated RBC % Not Reportable Neutrophils # (Manual) 11.6 H (1.5-6.6) 10^3/uL Lymphocytes # (Manual) 1.7 (1.5-3.5) 10^3/uL Monocytes # (Manual) 1.0 (0.0-1.0) 10^3/uL Eosinophils # (Manual) 0.0 (0-0.7) 10^3/uL Basophils # (Manual) 0.0 (0-0.1) 10^3/uL Differential Comment MANUAL DIFFERENTIAL WBC Morphology NORMAL APPEARANCE (NORMAL) Platelet Estimate NORMAL (130-450,000) (NORMAL) Platelet Morphology NORMAL APPEARANCE (NORMAL) RBC Morph Micro Appear NORMAL APPEARANCE (NORMAL) VBG pH (7.31-7.41) Ionized Calcium (1.15-1.33) mmol/L Sodium (135-145) mmol/L Potassium (3.5-5.0) mmol/L Chloride (101-111) mmol/L Carbon Dioxide (21-32) mmol/L Anion Gap (6-13) BUN (6-20) mg/dL Creatinine (0.6-1.2) mg/dL Estimated GFR (MDRD) (>89) Glucose (70-100) mg/dL Calcium (8.5-10.3) mg/dL Phosphorus (2.5-4.6) mg/dL Magnesium (1.7-2.8) mg/dL ABX Reporting Has patient been on IV antibiotics over the past 48 hours?: Yes Assessment/Plan - Problem List (1) Acute respiratory failure with hypoxia Impression: Pt was intubated following intractable oxygen desaturation post sedation with IV propofol for an upper and lower endoscopy. He was intubated in the OR and was admitted to the ICU. We obtained a CT pulmonary angiogram to assess for pulmonary embolus. No PE was seen. Left lower lobe collapse was present. Calcifications of the coronary arteries was mild. Thyroid was normal size. Visualized portions of the upper abdomen demonstrated a left adrenal nodule that was 22 mm. Kept intubated overnight and extubated 02/25/22 with good nif, BP, follwoing commands. Very calm man. Repeated his chest x-ray which showed improved aeration of the lungs. There is still some atelectasis seen in the left lower lung but no pneumothorax or large pleural effusion. Overall much improved aeration. Heart size mildly to moderately enlarged. Mediastinal contours appear normal. He was bringing up quite a bit of phlegm yesterday and as such submitted for culture. Started on antibiotics.So far still requiring high amount of oxygen to maintain O2 sats. But no fever, no other vital sign abnormality. When he speaks he has stridor, and it may be laryngeal due to intubation and extubation. Anesthesia has seen a soft tissue mass in his neck when they were putting in his central line. TSH is noted to be gradually dropping. I did a CT of the neck and other than slight parathyroid enlargement nothing else was seen. With his daughter's history, I do think that he most likely had a mucous plug. This is a gentleman who was drinking for 6 days in a row. She describes him as basically drinking for hours at a time, falling asleep for a few hours of a nap to only wake up and do it all over again. He then went cold turkey, seem to have bright red blood per rectum, and did a prep. Most likely did have phlegm and a mucous plug to cause this. I had transferred to [facility]. But he went back in atrial fibrillation requiring a diltiazem drip deficit today. Today I have stopped the diltiazem drip and converted him to p.o. diltiazem. I also did an amiodarone drip. Now o n p.o. amiodarone. And a beta-zara. O2 sats are now 93 to 98% on room air. I think his respiratory problem is resolved. It is now a matter of getting his atrial fibrillation under control for him to go home. Continue to treat with antibiotics Day #3/ Rocephin, day #3/3 azithromycin nebulizers were added 02/25, encourage ambulation (2) Collapse of left lung Conclusion/Plan: A chest/thorax CTA was performed with IV contrast, the impressions of the im aging results are as follows: 1. No PE 2. Malpositioned NGT 3. Left lower lobe collapse 4. Left adrenal adenoma 5. Coronary artery disease Plan: Mucous plug as the cause. He produces daily phlegm. This is not negative pressure edema. CT did not show foreign body. CT did not show an endobronchial lesion. I would want to either see a chest x-ray in a months, as well as possibly a pulmonary consult for bronchoscopy in the outpatient setting. During this admission not much more of a work-up can be provided. (3)atrial fibrillation with RVR Conclusion/Plan: Previously diagnosed condition. It was found on a routine visit when he was seeing this provider. This was in October 2021 and during that visit his heart rate was noted to be elevated. He was asymptomatic with this. EKG showed atrial fibrillation and he was put on metoprolol and Xarelto. He was then referred to cardiology for stress test and echo. Those are scheduled for March. TSH in October was newly low. His usual TSH is started at over 2 and over the course of time I have noticed that they went to 1 and then below 1. The event which led him to be hospitalized is likely pulmonary in origin, but it would be prudent to obtain an echocardiogram. Unfortunately, we are unable to do so due to when the tech is available and will not be able to until Sunday when there is a meter readers supervisor in house. Today is Sunday. The patient will probably be here through the afternoon and can get an echo before discharge if he goes home tomorrow. Going home will all depend on whether his atrial fibrillation can be controlled. I repeated an EKG 02/25. Nursing felt that he may be having ST elevation on his telemetry leads. Repeat shows sinus tachycardia. Sharp T wave inversions that were present October 2016, December 24, 2021 are less evident today. There is still some slight inversions of the T waves in V5 and V6 but T waves are now become peaked and normalized in V2 through V4. He has nonspecific ST elevation in V2 and V3 this nondiagnostic. Trended troponins were unremarkable. He is on his anticoagulant.I will add metoprolol 5 mg IV push as needed if he sustains atrial fibrillation with a high rate greater than 3 minutes. (4) Hypertension Conclusion/Plan: Previously diagnosed hypertension. Plan: Blood pressure is tolerating his metoprolol, amlodipine. Will resume benazepril today. (5) Anemia Baseline hemoglobin is usually 12.1-13.5. With his colonoscopy he was 8.8. Now in retrospect, he may have dropped his hemoglobin because he was having bright red blood per rectum for the 2 days prior to evaluation with a colonoscopy. The anemia was the entire reason he was getting an upper and lower endoscopy. Today he is 7.7 Anemia panel shows iron deficiency anemia. Normal B12. High retake count but absolute reticulocyte count normal. He is already fecal occult blood positive. He will eventually need the upper and lower endoscopy to be completed. It was a respiratory event that canceled his EGD and colonoscopy. He still has not had his stress test and echocardiogram. I will leave to the discretion of his PCP and solar installation foreman to see if they want to get those studies done before the next attempt at EGD and colonoscopy If he drops below 7 g tomorrow he may need to stay for blood transfusion as well.
[2022-02-27] MEDS ORDERED: METOPROLOL 5 MG/5 ML VIAL IVP PRN (17:45)
[2022-02-28] MEDS: SODIUM CHLORIDE FLUSH 0.9% 10 ML SYRINGE IVP SCH ×2 (00:05→10:40)
[2022-02-28] MEDS: SODIUM CHLORIDE FLUSH 0.9% 10 ML SYRINGE IVP PRN ×2 (00:12)
[2022-02-28 05:18] LABS: CALCIUM, IONIZED 1.12 mmol/L (1.15-1.33); VBG PH 7.363 (7.31-7.41)
[2022-02-28 05:32] LABS: PHOSPHORUS 3.7 mg/dL (2.5-4.6)
[2022-02-28] MEDS: PANTOPRAZOLE 40 MG TABLET PO SCH (06:21)
[2022-02-28] MEDS ORDERED: POTASSIUM CHLORIDE 20 MEQ/15 ML UDC PO ONE (08:00)
[2022-02-28] MEDS: amLODIPine 5 MG TABLET PO SCH (08:49)
[2022-02-28] MEDS: METOPROLOL TARTRATE 50 MG TABLET PO SCH (08:49)
[2022-02-28] MEDS: APIXABAN 5 MG TABLET PO SCH ×2 (08:50→21:16)
[2022-02-28] MEDS: AMIODARONE 200 MG TABLET PO SCH (08:50)
[2022-02-28 08:52] LABS: BASOPHILS # (AUTO) 0.1 10^3/uL (0.0-0.1); BASOPHILS % (AUTO) 0.5 %; EOSINOPHILS # (AUTO) 0.2 10^3/uL (0.0-0.7); EOSINOPHILS % (AUTO) 1.6 %; HCT - HEMATOCRIT 25.8 % (42.0-52.0); HGB - HEMOGLOBIN 7.7 g/dL (14.0-18.0); LYMPHOCYTES # (AUTO) 2.1 10^3/uL (1.5-3.5); LYMPHOCYTES % (AUTO) 17.7 %; MEAN CORPUSCULAR HGB CONC 29.8 g/dL (32.0-36.0); MEAN CORPUSCULAR VOLUME 90.5 fL (80.0-94.0); MEAN PLATELET VOLUME 9.3 fL (7.4-11.4); MONOCYTES # (AUTO) 1.2 10^3/uL (0.0-1.0); MONOCYTES % (AUTO) 10.6 %; NRBC ABSOLUTE COUNT (AUTO) 0.02 x10^3/uL; NUCLEATED RED BLOOD CELLS AUTO 0.2 /100WBC; PLT - PLATELET COUNT 385 10^3/uL (130-450); RED BLOOD COUNT 2.85 10^6/uL (4.70-6.10); RED CELL DISTRIBUTION WIDTH 15.9 % (12.0-15.0); WHITE BLOOD COUNT 11.6 x10^3/uL (4.8-10.8)
[2022-02-28 09:00] LABS: ALBUMIN 3.2 g/dL (3.2-5.5); ALBUMIN/GLOBULIN RATIO 0.9 (1.0-2.2); BILIRUBIN,TOTAL 0.3 mg/dL (0.2-1.0); CALCIUM 8.6 mg/dL (8.5-10.3); CREATININE 1.3 mg/dL (0.6-1.2); POTASSIUM 3.7 mmol/L (3.5-5.0); TOTAL PROTEIN 6.9 g/dL (6.7-8.2)
[2022-02-28] MEDS: cefTRIAXone 2 GM in SODIUM CHLORIDE 0.9% MINIBAG 100 ML IV SCH (09:13)
--- NOTE | 2022-02-28 12:08 | PROVIDER PROGRESS NOTE ---
Assessment/Plan - Problem List (1) Acute respiratory failure with hypoxia Assessment/Plan: Pt was intubated due to intractable oxygen desaturation post sedation with IV propofol for an upper and lower endoscopy. He was intubated in the OR and was admitted to the ICU. We obtained a CT pulmonary angiogram to assess for pulmonary embolus. No PE was seen. Left lower lobe collapse was present. Calcifications of the coronary arteries was mild. Thyroid was normal size. Visualized portions of the upper abdomen demonstrated a left adrenal nodule that was 22 mm. He was kept intubated overnight and extubated 02/25/22 with good nif, BP, following commands, calm. Repeated his chest x-ray which showed improved aeration of the lungs. There is still some atelectasis seen in the left lower lung but no pneumothorax or large pleural effusion. Overall much improved aeration. Heart size mildly to moderately enlarged. Mediastinal contours appear normal. He was bringing up quite a bit of phlegm yesterday and as such submitted for culture. Started on antibiotics adn oxygen to maintain O2 sats. When he initially spoke after extubation, he has stridor, and it may have been laryngeal due to intubation and extubation. Anesthesia has seen a soft tissue mass in his neck when they were putting in his central line. We did a CT of the neck and other than slight parathyroid enlargement nothing else was seen. From his daughter's input about his history, we do think that he most likely had a mucous plug. This is a gentleman who was drinking for 6 days in a row. She describes him as basically drinking for hours at a time, falling asleep for a few hours of a nap to only wake up and do it all over again. He then went cold turkey, seem to have bright red blood per rectum, and did a bowel prep for the scheduled procedure. Most likely he did have phlegm and a mucous plug to cause this. O2 sats are now >90% on room air. Continue to treat with empiric antibiotics Rocephin & Zithromycin. Also ne bulizers were added 02/25, encourage ambulation (2) Collapse of left lung Conclusion/Plan: A chest/thorax CTA was performed with IV contrast, the impressions of the imaging result s showed Left lower lobe collapse Mucous plug was the cause. CT did not show foreign body. CT did not show an endobronchial lesion. He produces daily phlegm, but lung has re-expanded. since we repeated his chest x-ray and it showed improved aeration of the lungs. There is still some atelectasis seen in the left lower lung but no pneumothorax or large pleural effusion. Overall much improved aeration. We will recommend a chest x-ray in a month, as well as possibly a Pulmonary consult for bronchoscopy in the outpatient setting. During this admission not much more of a work-up can be provided. (3) Atrial fibrillation with RVR Conclusion/Plan: The event which led him to be hospitalized now is pulmonary in origin, but now he is still having Afib with RVR. He needs further med adjustments for rate control. Trended troponins here were unremarkable. He went from sinus rhythm into atrial fibrillation with RVR, requiring a diltiazem drip. We have now stopped the diltiazem drip and converted him to p. o. diltiazem. He was also on an amiodarone drip and is now on p.o. amiodarone and a beta-zara. Today he is in and out of A. fib, mostly A. fib occurs when he is active. Will increase the Metoprolol dose and make is Succinate Will change the oral Cardizem q6h to Cardizem CD for ease of dosing when he is DChd He was on Xarelto at home, which we substituted for Eliquis here, since Xarelto is not on hospital formulary. (4) Cor pulmonale The Echo was done today and findings are of an enlarged RV. This suggests that his pulm disease is significant and possibly more chronic. He has been a smoker. Continue management of the underlying lung disease as described above in #1 and 2 (5) Hypertension Conclusion/Plan: Previously diagnosed hypertension. Blood pressure was controlled at home on metoprolol, amlodipine and benazepril. Now we are using Cardizem, Metoprolol and Amio and BPs are controlled. (6) Anemia, Iron deficiency Baseline hemoglobin is usually 12.1-13.5. With his colonoscopy he was 8.8. Now in retrospect, he may have dropped his hemoglobin because he was having bright red blood per rectum for the 2 days prior to evaluation with a colonoscopy. The anemia was the entire reason he was getting an upper and lower endoscopy. Anemia panel shows iron deficiency anemia. Normal B12. High retic count but absolute reticulocyte count normal. He is already fecal occult blood positive. He will eventually need the upper and lower endoscopy to be completed. It was a respiratory event that canceled his EGD and colonoscopy. He still has not had his stress test. I will leave to the discretion of his PCP and [facility] Department Supervisor to see if they want to get those studies done before the next attempt at EGD and colonoscopy Following CBC daily and would transfuse if Hgb <7. - Current Meds Current Meds: Current Medications Generic Name Dose Route Start Last Admin Trade Name Freq PRN Reason Stop Dose Admin Acetaminophen 650 mg 02/24/22 08:52 02/26/22 16:23 Acetaminophen 325 Mg Tablet PO 650 mg Q4HR PRN Administration Pain 1 to 4, or Fever Albuterol 2.5 mg 02/24/22 10:05 02/27/22 20:23 Albuterol Neb 2.5 Mg/3 Ml INH 2.5 mg Q2HR PRN Administration Wheezing Amiodarone HCl 200 mg 02/27/22 09:00 02/28/22 08:50 Amiodarone 200 Mg Tablet PO 200 mg DAILY SIMÓN Administration Amlodipine Besylate 10 mg 02/26/22 09:00 02/28/22 08:49 Amlodipine 5 Mg Tablet PO 10 mg DAILY SIMÓN Administration Apixaban 5 mg 02/25/22 21:00 02/28/22 08:50 Apixaban 5 Mg Tablet PO 5 mg BID SIMÓN Administration Calcium Carbonate/Glycine 500 mg 02/25/22 18:59 02/25/22 20:12 Calcium Carbonate Chew 500 Mg Tablet PO 500 mg TID PRN Administration INDIGESTION Diltiazem HCl 60 mg 02/27/22 09:00 02/28/22 06:21 Diltiazem 60 Mg Tablet PO 60 mg Q6HR SIMÓN Administration Ceftriaxone Sodium 2 gm/ 100 mls @ 200 mls/hr 02/25/22 09:00 02/28/22 09:55 Sodium Chloride IV Infused DAILY SIMÓN Infusion Lidocaine 1 patch 02/26/22 14:34 02/26/22 15:22 Lidocaine Patch 5% TOP 1 patch DAILY PRN Administration PAIN Metoprolol Tartrate 50 mg 02/25/22 21:00 02/28/22 08:49 Metoprolol Tartrate 50 Mg Tablet PO 50 mg BID SIMÓN Administration Morphine Sulfate 2 mg 02/24/22 15:47 02/26/22 03:20 Morphine 2 Mg/Ml Carpuject IVP 2 mg Q1H PRN Administration Pain 8 to 10 Pantoprazole Sodium 40 mg 02/25/22 19:00 02/28/22 06:21 Pantoprazole 40 Mg Tablet PO 40 mg QDAC SIMÓN Administration Sodium Chloride 10 ml 02/24/22 09:00 02/28/22 10:40 Sodium Chloride Flush 0.9% 10 Ml Syringe IVP 10 ml 0100,0900,1700 SIMÓN Administration Sodium Chloride 10 ml 02/24/22 08:52 02/28/22 00:12 Sodium Chloride Flush 0.9% 10 Ml Syringe IVP 10 ml PRN PRN Administration NEEDED PER PROVIDER ORDERS Sodium Chloride 20 ml 02/26/22 21:19 02/28/22 00:12 Sodium Chloride Flush 0.9% 10 Ml Syringe IVP 20 ml PRN PRN Administration After Blood Draw - Lab Result Fish Bone Diagrams: 03/02/22 05:00 03/02/22 05:00 - Additional Planning My Orders: My Active Orders 02/28/22 10:00 Vitamin [Trinatal Rx 1] 1 tab PO DAILYWM Subjective - Subjective Patient Reports: Feeling Better, Cough Objective Vital Signs: Vital Signs - 24 hr 02/27/22 02/27/22 02/27/22 13:00 14:00 15:00 Temperature Heart Rate Heart Rate [ 68 77 92 Monitoring electrodes] Respiratory 22 24 29 H Rate Blood Pressure Blood Pressure 113/62 123/74 121/61 [Right Brachial artery] O2 Saturation 100 98 95 If not protocol : Oxygen Flow, liters/minute 02/27/22 02/27/22 02/27/22 16:00 17:00 17:03 Temperature Heart Rate Heart Rate [ 80 105 H Monitoring electrodes] Respiratory 19 24 Rate Blood Pressure 155/80 H Blood Pressure 140/81 H 155/80 H [Right Brachial artery] O2 Saturation 97 93 If not protocol : Oxygen Flow, liters/minute 02/27/22 02/27/22 02/27/22 18:00 19:00 20:00 Temperature 37.1 C Heart Rate 99 Heart Rate [ 102 H 64 95 Monitoring electrodes] Respiratory 27 H 23 20 Rate Blood Pressure Blood Pressure 114/49 L 100/54 L 126/80 [Right Brachial artery] O2 Saturation 93 94 99 If not protocol 94 3 : Oxygen Flow, liters/minute 02/27/22 02/27/22 02/27/22 20:19 20:53 21:00 Temperature Heart Rate Heart Rate [ 103 H Monitoring electrodes] Respiratory 23 Rate Blood Pressure 126/80 Blood Pressure 127/62 [Right Brachial artery] O2 Saturation 98 If not protocol 3 3 : Oxygen Flow, liters/minute 02/27/22 02/27/22 02/28/22 22:00 23:00 00:00 Temperature Heart Rate Heart Rate [ 74 81 Monitoring electrodes] Respiratory 84 H 19 19 Rate Blood Pressure Blood Pressure 112/79 106/56 L 111/65 [Right Brachial artery] O2 Saturation 26 L 99 97 If not protocol 92 3 3 : Oxygen Flow, liters/minute 02/28/22 02/28/22 02/28/22 00:05 01:00 02:10 Temperature Heart Rate Heart Rate [ 79 110 H Monitoring electrodes] Respiratory 21 28 H Rate Blood Pressure 111/65 Blood Pressure 101/65 118/64 [Right Brachial artery] O2 Saturation 98 97 If not protocol 3 3 : Oxygen Flow, liters/minute 02/28/22 02/28/22 02/28/22 03:00 04:00 04:03 Temperature Heart Rate Heart Rate [ 78 86 77 Monitoring electrodes] Respiratory 20 20 19 Rate Blood Pressure Blood Pressure 84/54 L 103/64 108/54 L [Right Brachial artery] O2 Saturation 100 96 If not protocol 3 3 : Oxygen Flow, liters/minute 02/28/22 02/28/22 02/28/22 05:00 06:00 06:21 Temperature 37.1 C Heart Rate Heart Rate [ 99 62 Monitoring electrodes] Respiratory 20 19 Rate Blood Pressure 129/76 Blood Pressure 125/76 129/76 [Right Brachial artery] O2 Saturation 98 98 If not protocol 3 3 : Oxygen Flow, liters/minute 02/28/22 02/28/22 02/28/22 07:00 07:05 08:00 Temperature 37.3 C Heart Rate Heart Rate [ 62 83 Monitoring electrodes] Respiratory 19 22 Rate Blood Pressure Blood Pressure 129/76 131/82 H [Right Brachial artery] O2 Saturation 98 96 If not protocol 3 2 3 : Oxygen Flow, liters/minute 02/28/22 02/28/22 02/28/22 08:49 09:00 10:00 Temperature Heart Rate Heart Rate [ 94 63 Monitoring electrodes] Respiratory 23 24 Rate Blood Pressure 131/82 H Blood Pressure 128/60 103/66 [Right Brachial artery] O2 Saturation 94 99 If not protocol 3 3 : Oxygen Flow, liters/minute 02/28/22 02/28/22 11:00 12:00 Temperature 36.6 C Heart Rate Heart Rate [ 65 104 H Monitoring electrodes] Respiratory 27 H 23 Rate Blood Pressure Blood Pressure 120/60 132/80 H [Right Brachial artery] O2 Saturation 93 96 If not protocol 3 : Oxygen Flow, liters/minute Oxygen O2 Source Room air I&O (Last 24 Hrs): Intake and Output Totals x24h 02/26/22 02/27/22 02/28/22 23:59 23:59 23:59 Intake Total 3723.573 4040.511 720 Output Total 2650 1550 1030 Balance 3602.000 0517.511 -310 General: Alert, Oriented x3 HEENT: Mucous membr. moist/pink Neck: Supple Neuro: Alert, Non Focal Cardiovascular: No murmurs, Other (Tachy and irreg irreg) Respiratory: No respiratory distress, Wheezes (scattered) Abdomen: Soft, Other (obese with pannus) Extremities: No clubbing, No edema - Results Results: Laboratory Results WBC 11.6 x10^3/uL (4.8-10.8) H 02/28/22 05:00 RBC 2.85 10^6/uL (4.70-6.10) L 02/28/22 05:00 Hgb 7.7 g/dL (14.0-18.0) L 02/28/22 05:00 Hct 25.8 % (42.0-52.0) L 02/28/22 05:00 MCV 90.5 fL (80.0-94.0) 02/28/22 05:00 MCH 27.0 pg (27.0-31.0) 02/28/22 05:00 MCHC 29.8 g/dL (32.0-36.0) L 02/28/22 05:00 RDW 15.9 % (12.0-15.0) H 02/28/22 05:00 Plt Count 385 10^3/uL (130-450) 02/28/22 05:00 MPV 9.3 fL (7.4-11.4) 02/28/22 05:00 Reticulocyte % (Auto) 2.63 % (0.5-2.3) H 02/26/22 05:30 Neut # (Auto) 8.0 10^3/uL (1.5-6.6) H 02/28/22 05:00 Lymph # (Auto) 2.1 10^3/uL (1.5-3.5) 02/28/22 05:00 Cecil # (Auto) 1.2 10^3/uL (0.0-1.0) H 02/28/22 05:00 Eos # (Auto) 0.2 10^3/uL (0.0-0.7) 02/28/22 05:00 Baso # (Auto) 0.1 10^3/uL (0.0-0.1) 02/28/22 05:00 Absolute Nucleated RBC 0.02 x10^3/uL 02/28/22 05:00 Total Counted 100 02/27/22 04:15 Band Neuts % (Manual) 0 % (0-10) 02/27/22 04:15 Abnorm Lymph % (Manual) 0 % 02/27/22 04:15 Nucleated RBC % 0.2 /100WBC 02/28/22 05:00 Neutrophils # (Manual) 11.6 10^3/uL (1.5-6.6) H 02/27/22 04:15 Lymphocytes # (Manual) 1.7 10^3/uL (1.5-3.5) 02/27/22 04:15 Monocytes # (Manual) 1.0 10^3/uL (0.0-1.0) 02/27/22 04:15 Eosinophils # (Manual) 0.0 10^3/uL (0-0.7) 02/27/22 04:15 Basophils # (Manual) 0.0 10^3/uL (0-0.1) 02/27/22 04:15 Differential Comment MANUAL DIFFERENTIAL 02/27/22 04:15 WBC Morphology NORMAL APPEARANCE (NORMAL) 02/27/22 04:15 Platelet Estimate NORMAL (130-450,000) (NORMAL) 02/27/22 04:15 Platelet Morphology NORMAL APPEARANCE (NORMAL) 02/27/22 04:15 RBC Morph Micro Appear NORMAL APPEARANCE (NORMAL) 02/27/22 04:15 Absolute Retic 0.079 10^6/uL (0.020-0.110) 02/26/22 05:30 Bld Gas Analysis Time 1000 02/24/22 10:00 Sample Site RIGHT RADIAL 02/24/22 10:00 ABG pH 7.32 (7.35-7.45) L 02/24/22 10:00 ABG pCO2 50 mmHg (34-45) H 02/24/22 10:00 ABG pO2 72 mmHg (80-100) L 02/24/22 10:00 ABG HCO3 25.1 mmol/L (22.0-26.0) 02/24/22 10:00 ABG Total CO2 26.6 MMOL/L (21.0-29.0) 02/24/22 10:00 ABG O2 Saturation 92 % (94-98) L 02/24/22 10:00 ABG Base Excess -1.3 mmol/L (-2.0-3.0) 02/24/22 10:00 Miguel Test POSITIVE 02/24/22 10:00 VBG pH 7.363 (7.31-7.41) 02/28/22 05:00 Ionized Calcium 1.12 mmol/L (1.15-1.33) L 02/28/22 05:00 Respiration Rate 18 b/min 02/24/22 10:00 O2 Delivery Device VENTILATOR 02/24/22 10:00 Vent Mode ASSIST/CONTROL 02/24/22 10:00 FiO2 80.00 02/24/22 10:00 Tidal Volume 500 mL 02/24/22 10:00 PEEP 5 cmH2O 02/24/22 10:00 Sodium 138 mmol/L (135-145) 02/28/22 05:00 Potassium 3.7 mmol/L (3.5-5.0) 02/28/22 05:00 Potassium 3.8 mmol/L (3.5-5.0) 02/28/22 05:00 Chloride 107 mmol/L (101-111) 02/28/22 05:00 Carbon Dioxide 23 mmol/L (21-32) 02/28/22 05:00 Anion Gap 8.0 (6-13) 02/28/22 05:00 BUN 8 mg/dL (6-20) 02/28/22 05:00 Creatinine 1.3 mg/dL (0.6-1.2) H 02/28/22 05:00 Estimated GFR (MDRD) 69 (>89) L 02/28/22 05:00 Glucose 112 mg/dL (70-100) H 02/28/22 05:00 Calcium 8.6 mg/dL (8.5-10.3) 02/28/22 05:00 Phosphorus 3.7 mg/dL (2.5-4.6) 02/28/22 05:00 Magnesium 2.0 mg/dL (1.7-2.8) 02/28/22 05:00 Iron 14 ug/dL (45-182) L 02/26/22 05:30 TIBC 420 ug/dL (250-450) 02/26/22 05:30 % Saturation 3 % (20-50) L 02/26/22 05:30 Transferrin 300 mg/dL (180-329) 02/26/22 05:30 Ferritin 198.7 ng/mL (23.9-336.2) 02/26/22 05:30 Total Bilirubin 0.3 mg/dL (0.2-1.0) 02/28/22 05:00 AST 24 IU/L (10-42) 02/28/22 05:00 ALT 28 IU/L (10-60) 02/28/22 05:00 Alkaline Phosphatase 88 IU/L (42-121) 02/28/22 05:00 Lactate Dehydrogenase 176 IU/L (91-225) 02/26/22 05:30 Troponin I High Sens 6.1 ng/L (2.3-19.7) 02/24/22 14:22 Total Protein 6.9 g/dL (6.7-8.2) 02/28/22 05:00 Albumin 3.2 g/dL (3.2-5.5) 02/28/22 05:00 Globulin 3.7 g/dL (2.1-4.2) 02/28/22 05:00 Albumin/Globulin Ratio 0.9 (1.0-2.2) L 02/28/22 05:00 Vitamin B12 338 pg/mL (180-914) 02/26/22 05:30 Nasal Screen MRSA (PCR) NEGATIVE (NEGATIVE) 02/24/22 11:00 SARS-CoV-2 (PCR) NOT DETECTED 02/25/22 05:30
[2022-02-28] MEDS: PRENATAL VITAMIN TABLET PO SCH (12:13)
[2022-02-28] MEDS ORDERED: ZINC OXIDE 20% OINT 30 GM TUBE TOP PRN (13:49)
[2022-02-28] MEDS: METOPROLOL SUCCINATE 25 MG TABLET PO SCH (21:16)
[2022-03-01] MEDS: SODIUM CHLORIDE FLUSH 0.9% 10 ML SYRINGE IVP SCH ×5 (00:21→20:34)
[2022-03-01] MEDS: SODIUM CHLORIDE FLUSH 0.9% 10 ML SYRINGE IVP PRN ×3 (00:26→09:39)
[2022-03-01 05:21] LABS: CALCIUM, IONIZED 1.13 mmol/L (1.15-1.33); VBG PH 7.379 (7.31-7.41)
[2022-03-01] MEDS: PANTOPRAZOLE 40 MG TABLET PO SCH (06:12)
[2022-03-01] MEDS ORDERED: IPRATROPIUM/ALBUTEROL 3 ML NEB INH PRN (09:14)
[2022-03-01] MEDS: METOPROLOL SUCCINATE 25 MG TABLET PO SCH ×2 (09:18→20:35)
[2022-03-01] MEDS: diltiaZEM CD 120 MG CAPSULE PO SCH ×2 (09:18→20:34)
[2022-03-01] MEDS: AMIODARONE 200 MG TABLET PO SCH (09:18)
[2022-03-01] MEDS: PRENATAL VITAMIN TABLET PO SCH (09:18)
[2022-03-01] MEDS: APIXABAN 5 MG TABLET PO SCH ×2 (09:18→20:34)
[2022-03-01] MEDS: THIAMINE 100 MG TABLET PO SCH (09:19)
[2022-03-01] MEDS: cefTRIAXone 2 GM in SODIUM CHLORIDE 0.9% MINIBAG 100 ML IV SCH (09:28)
[2022-03-01 10:10] LABS: BASOPHILS # (AUTO) 0.1 10^3/uL (0.0-0.1); BASOPHILS % (AUTO) 0.9 %; EOSINOPHILS # (AUTO) 0.3 10^3/uL (0.0-0.7); EOSINOPHILS % (AUTO) 2.5 %; HCT - HEMATOCRIT 27.5 % (42.0-52.0); HGB - HEMOGLOBIN 8.3 g/dL (14.0-18.0); LYMPHOCYTES # (AUTO) 1.7 10^3/uL (1.5-3.5); MEAN CORPUSCULAR HEMOGLOBIN 26.9 pg (27.0-31.0); MEAN CORPUSCULAR HGB CONC 30.2 g/dL (32.0-36.0); MEAN PLATELET VOLUME 8.9 fL (7.4-11.4); MONOCYTES % (AUTO) 8.4 %; NEUTROPHILS # (AUTO) 8.3 10^3/uL (1.5-6.6); NEUTROPHILS % (AUTO) 72.2 %; NRBC ABSOLUTE COUNT (AUTO) 0.04 x10^3/uL; NUCLEATED RED BLOOD CELLS AUTO 0.3 /100WBC; PLT - PLATELET COUNT 417 10^3/uL (130-450); RED BLOOD COUNT 3.09 10^6/uL (4.70-6.10); RED CELL DISTRIBUTION WIDTH 15.8 % (12.0-15.0); WHITE BLOOD COUNT 11.5 x10^3/uL (4.8-10.8)
[2022-03-01 10:20] LABS: CREATININE 1.3 mg/dL (0.6-1.2); POTASSIUM 3.7 mmol/L (3.5-5.0)
[2022-03-01 12:27] LABS: ESTIMATED AVERAGE GLUCOSE 143 mg/dL (70-100); HEMOGLOBIN A1c% 6.6 % (4.27-6.07)
--- NOTE | 2022-03-01 16:22 | PROVIDER PROGRESS NOTE ---
Assessment/Plan - Problem List (1) Acute respiratory failure with hypoxia Assessment/Plan: Pt was intubated due to intractable oxygen desaturation post sedation with IV propofol for an upper and lower endoscopy. He was intubated in the OR and was admitted to the ICU. We obtained a CT pulmonary angiogram to assess for pulmonary embolus. No PE was seen. Left lower lobe collapse was present. Calcifications of the coronary arteries was mild. Thyroid was normal size. Visualized portions of the upper abdomen demonstrated a left adrenal nodule that was 22 mm. He was kept intubated overnight and extubated 02/25/22. Repeated his chest x-ray which showed improved aeration of the lungs. There is still some atelectasis seen in the left lower lung but no pneumothorax or large pleural effusion. Heart size mildly to moderately enlarged. Mediastinal contours appear normal. He was bringing up quite a bit of phlegm submitted for culture and we started him on antibiotics on 02/25. When he initially spoke after extubation, he has stridor, and it may have been laryngeal due to intubation and extubation. Anesthesia has seen a soft tissue mass in his neck when they were putting in his central line. We did a CT of the neck and other than slight parathyroid enlargement nothing else was seen. From his daughter's input about his history, we do think that he most likely had a mucous plug. This is a gentleman who was drinking for 6 days in a row. She describes him as basically drinking for hours at a time, falling asleep for a few hours of a nap to only wake up and do it all over again. He then went cold turkey, seem to have bright red blood per rectum, and did a bowel prep for the scheduled procedure. Most likely he did have phlegm and a mucous plug to cause this. Continue to treat with empiric antibiotics Rocephin & Zithromycin. Also nebulizers were added 02/25, encourage ambulation O2 sats are now >90% on room air. He will be transferred out of the ICU today. (2) VTach Conclusion/Plan: A 3 beat run of VT was seen on telemetry. It was precipitated by quick burst of atrial flutter. Continue with plans for using oral Amiodarone which can maintain NSR and suppress VTach. (3) Atrial fibrillation with RVR Conclusion/Plan: The event which led him to be hospitalized now is pulmonary in origin, but now he is still having Afib with RVR. He needs further med adjustments for rate control. Trended troponins here were unremarkable. He went from sinus rhythm into atrial fibrillation with RVR, requiring a diltiazem drip. We have now stopped the diltiazem drip and converted him to p.o. diltiazem. He was also on an amiodarone drip and is now on p.o. amiodarone and a beta-zara. Today he is in and out of A. fib, mostly A. fib occurs when he is active. We increase the Metoprolol dose and made is Succinate yesterday, and today his rate is controlled and much less Afib seen now We changed the oral Cardizem q6h to Cardizem CD yesterday, for ease of dosing when he is DChd, and today his rate is controlled and much less Afib seen now He was on Xarelto at home, which we substituted for Eliquis here, since Xarelto is not on hospital formulary. He will be transferred out of the ICU today and encouraged to ambulate to see if his heart rate control is adequate on this current combination of metoprolol, Cardizem and amnio (4) Cor pulmonale Conclusion/Plan: The Echo was done yesterday and findings are of an enlarged RV. This suggests that his pulm disease is significant and possibly more chronic. He has been a longtime smoker. Continue management of the underlying lung disease as described above in #1 (5) Hypertension Conclusion/Plan: Previously diagnosed hypertension. Blood pressure was controlled at home on metoprolol, amlodipine and benazepril. Now we are using Cardizem, Metoprolol and Amio and BPs are controlled. (6) Anemia, Iron deficiency Conclusion/Plan: Baseline hemoglobin is usually 12.1-13.5. With his colonoscopy he was 8.8. Now in retrospect, he may have dropped his hemoglobin because he was having bright red blood per rectum for the 2 days prior to evaluation with a colonoscopy. The anemia was the entire reason he was getting an upper and lower endoscopy. Anemia panel shows iron deficiency anemia. Normal B12. High retic count but absolute reticulocyte count normal. He is already fecal occult blood positive. He will eventually need the upper and lower endoscopy to be completed. It was a respiratory event that canceled his EGD and colonoscopy. He still has not had his stress test. I will leave to the discretion of his PCP and Animal Treatment Investigator to see if they want to get those studies done before the next attempt at EGD and colonoscopy Following CBC daily and would transfuse if Hgb <7. (7) Collapse of left lung Conclusion/Plan: Resolved. A chest/thorax CTA was performed with IV contrast, the impressions of the imaging result s showed Left lower lobe collapse Mucous plug was the cause. CT did not show foreign body. CT did not show an e ndobronchial lesion. He produces daily phlegm, but lung has re-expanded. since we repeated his chest x-ray and it showed improved aeration of the lungs. There is still some atelectasis seen in the left lower lung but no pneumothorax or large pleural effusion. Overall much improved aeration. We will recommend a chest x-ray in a month, as well as possibly a Pulmonary consult for bronchoscopy in the outpatient setting. During this admission not much more of a work-up can be provided. - Current Meds Current Meds: Current Medications Generic Name Dose Route Start Last Admin Trade Name Freq PRN Reason Stop Dose Admin Acetaminophen 650 mg 02/24/22 08:52 02/26/22 16:23 Acetaminophen 325 Mg Tablet PO 650 mg Q4HR PRN Administration Pain 1 to 4, or Fever Amiodarone HCl 200 mg 02/27/22 09:00 03/01/22 09:18 Amiodarone 200 Mg Tablet PO 200 mg DAILY SIMÓN Administration Apixaban 5 mg 02/25/22 21:00 03/01/22 09:18 Apixaban 5 Mg Tablet PO 5 mg BID SIÓMN Administration Calcium Carbonate/Glycine 500 mg 02/25/22 18:59 02/25/22 20:12 Calcium Carbonate Chew 500 Mg Tablet PO 500 mg TID PRN Administration INDIGESTION Diltiazem HCl 120 mg 03/01/22 09:00 03/01/22 09:18 Diltiazem Cd 120 Mg Capsule PO 120 mg BID SIMÓN Administration Lidocaine 1 patch 02/26/22 14:34 02/26/22 15:22 Lidocaine Patch 5% TOP 1 patch DAILY PRN Administration PAIN Metoprolol Succinate 75 mg 02/28/22 21:00 03/01/22 09:18 Metoprolol Succinate 25 Mg Tablet PO 75 mg BID SIMÓN Administration Morphine Sulfate 2 mg 02/24/22 15:47 02/26/22 03:20 Morphine 2 Mg/Ml Carpuject IVP 2 mg Q1H PRN Administration Pain 8 to 10 Pantoprazole Sodium 40 mg 02/25/22 19:00 03/01/22 06:12 Pantoprazole 40 Mg Tablet PO 40 mg QDAC SIMÓN Administration Multivit/Folic Acid/Iron 1 tab 02/28/22 10:00 03/01/22 09:18 Vitamin Tablet PO 1 tab DAILYWM SIMÓN Administration Sodium Chloride 10 ml 02/24/22 09:00 03/01/22 11:04 Sodium Chloride Flush 0.9% 10 Ml Syringe IVP 20 ml 0100,0900,1700 SIMÓN Administration Sodium Chloride 20 ml 02/26/22 21:19 03/01/22 09:39 Sodium Chloride Flush 0.9% 10 Ml Syringe IVP 30 ml PRN PRN Administration After Blood Draw Thiamine HCl 100 mg 03/01/22 09:00 03/01/22 09:19 Thiamine 100 Mg Tablet PO 100 mg DAILY SIMÓN Administration - Lab Result Fish Bone Diagrams: 03/02/22 05:00 03/02/22 05:00 - Additional Planning My Orders: My Active Orders 02/28/22 21:00 Metoprolol Succinate [Toprol Xl] 75 mg PO BID 03/01/22 09:00 Thiamine [Vitamin B-1] 100 mg PO DAILY diltiaZEM CD [Cardizem Cd] 120 mg PO BID 03/01/22 09:14 Resp Teach Nebulizer/MDI [RC] .ONCE Ipratropium/Albuterol [Duoneb] 3 ml INH Q4HR PRN 03/01/22 11:05 Telemetry- [RC] Q4HR 03/02/22 05:00 BMP - BASIC METABOLIC PANEL [CHEM] DAILYLAB CBC - COMP BLD CT W/AUTO DIFF [HEME] DAILYLAB Subjective - Subjective Patient Reports: Feeling Better, Cough (Still clearing his throat alot), Shortness of Breath Objective Vital Signs: Vital Signs - 24 hr 02/28/22 02/28/22 02/28/22 17:00 17:22 18:00 Temperature Heart Rate [ 85 77 Monitoring electrodes] Respiratory 30 H 27 H Rate Blood Pressure 126/69 Blood Pressure 126/69 141/79 H [Right Brachial artery] O2 Saturation 94 100 02/28/22 02/28/22 02/28/22 19:00 20:00 21:11 Temperature 37.3 C Heart Rate [ 78 85 76 Monitoring electrodes] Respiratory 21 17 24 Rate Blood Pressure Blood Pressure 127/76 148/85 H 138/82 H [Right Brachial artery] O2 Saturation 98 98 99 02/28/22 02/28/22 03/01/22 22:00 23:00 00:00 Temperature 36.9 C Heart Rate [ 76 77 91 Monitoring electrodes] Respiratory 20 24 23 Rate Blood Pressure Blood Pressure 116/73 125/84 H 146/86 H [Right Brachial artery] O2 Saturation 98 99 95 03/01/22 03/01/22 03/01/22 00:21 01:00 02:00 Temperature Heart Rate [ 87 66 Monitoring electrodes] Respiratory 24 27 H Rate Blood Pressure 146/86 H Blood Pressure 149/72 H 99/71 [Right Brachial artery] O2 Saturation 95 92 03/01/22 03/01/22 03/01/22 03:00 04:00 05:00 Temperature Heart Rate [ 65 70 75 Monitoring electrodes] Respiratory 21 20 20 Rate Blood Pressure Blood Pressure 114/79 124/75 129/81 H [Right Brachial artery] O2 Saturation 98 99 98 03/01/22 03/01/22 03/01/22 06:00 07:00 08:00 Temperature 36.9 C 36.3 C L Heart Rate [ 75 64 75 Monitoring electrodes] Respiratory 19 17 20 Rate Blood Pressure Blood Pressure 109/87 H 121/79 153/92 H [Right Brachial artery] O2 Saturation 98 99 97 03/01/22 03/01/22 03/01/22 09:00 10:08 13:30 Temperature 36.5 C Heart Rate [ 73 70 79 Monitoring electrodes] Respiratory 24 21 20 Rate Blood Pressure Blood Pressure 148/86 H 140/83 H [Right Brachial artery] O2 Saturation 98 95 03/01/22 15:48 Temperature 36.7 C Heart Rate [ 70 Monitoring electrodes] Respiratory 20 Rate Blood Pressure Blood Pressure 148/84 H [Right Brachial artery] O2 Saturation 96 Oxygen O2 Source Room air I&O (Last 24 Hrs): Intake and Output Totals x24h 02/27/22 02/28/22 03/01/22 23:59 23:59 23:59 Intake Total 4040.511 1270 1164 Output Total 1550 1980 1600 Balance 2490.511 -710 -436 General: Alert, Oriented x3 HEENT: Mucous membr. moist/pink Neck: Supple, No JVD Neuro: Alert, Non Focal Cardiovascular: Regular rate, No murmurs Respiratory: No respiratory distress, Breath sounds nml, Rhonchi (minimal and scattered) Abdomen: Soft, Other (obese with pannus) Extremities: No clubbing, No edema - Results Results: Laboratory Results WBC 11.5 x10^3/uL (4.8-10.8) H 03/01/22 09:38 RBC 3.09 10^6/uL (4.70-6.10) L 03/01/22 09:38 Hgb 8.3 g/dL (14.0-18.0) L 03/01/22 09:38 Hct 27.5 % (42.0-52.0) L 03/01/22 09:38 MCV 89.0 fL (80.0-94.0) 03/01/22 09:38 MCH 26.9 pg (27.0-31.0) L 03/01/22 09:38 MCHC 30.2 g/dL (32.0-36.0) L 03/01/22 09:38 RDW 15.8 % (12.0-15.0) H 03/01/22 09:38 Plt Count 417 10^3/uL (130-450) 03/01/22 09:38 MPV 8.9 fL (7.4-11.4) 03/01/22 09:38 Reticulocyte % (Auto) 2.63 % (0.5-2.3) H 02/26/22 05:30 Neut # (Auto) 8.3 10^3/uL (1.5-6.6) H 03/01/22 09:38 Lymph # (Auto) 1.7 10^3/uL (1.5-3.5) 03/01/22 09:38 [place] # (Auto) 1.0 10^3/uL (0.0-1.0) 03/01/22 09:38 Eos # (Auto) 0.3 10^3/uL (0.0-0.7) 03/01/22 09:38 Baso # (Auto) 0.1 10^3/uL (0.0-0.1) 03/01/22 09:38 Absolute Nucleated RBC 0.04 x10^3/uL 03/01/22 09:38 Total Counted 100 02/27/22 04:15 Band Neuts % (Manual) 0 % (0-10) 02/27/22 04:15 Abnorm Lymph % (Manual) 0 % 02/27/22 04:15 Nucleated RBC % 0.3 /100WBC 03/01/22 09:38 Neutrophils # (Manual) 11.6 10^3/uL (1.5-6.6) H 02/27/22 04:15 Lymphocytes # (Manual) 1.7 10^3/uL (1.5-3.5) 02/27/22 04:15 Monocytes # (Manual) 1.0 10^3/uL (0.0-1.0) 02/27/22 04:15 Eosinophils # (Manual) 0.0 10^3/uL (0-0.7) 02/27/22 04:15 Basophils # (Manual) 0.0 10^3/uL (0-0.1) 02/27/22 04:15 Differential Comment MANUAL DIFFERENTIAL 02/27/22 04:15 WBC Morphology NORMAL APPEARANCE (NORMAL) 02/27/22 04:15 Platelet Estimate NORMAL (130-450,000) (NORMAL) 02/27/22 04:15 Platelet Morphology NORMAL APPEARANCE (NORMAL) 02/27/22 04:15 RBC Morph Micro Appear NORMAL APPEARANCE (NORMAL) 02/27/22 04:15 Absolute Retic 0.079 10^6/uL (0.020-0.110) 02/26/22 05:30 Bld Gas Analysis Time 1000 02/24/22 10:00 Sample Site RIGHT RADIAL 02/24/22 10:00 ABG pH 7.32 (7.35-7.45) L 02/24/22 10:00 ABG pCO2 50 mmHg (34-45) H 02/24/22 10:00 ABG pO2 72 mmHg (80-100) L 02/24/22 10:00 ABG HCO3 25.1 mmol/L (22.0-26.0) 02/24/22 10:00 ABG Total CO2 26.6 MMOL/L (21.0-29.0) 02/24/22 10:00 ABG O2 Saturation 92 % (94-98) L 02/24/22 10:00 ABG Base Excess -1.3 mmol/L (-2.0-3.0) 02/24/22 10:00 Miguel Test POSITIVE 02/24/22 10:00 VBG pH 7.379 (7.31-7.41) 03/01/22 04:55 Ionized Calcium 1.13 mmol/L (1.15-1.33) L 03/01/22 04:55 Respiration Rate 18 b/min 02/24/22 10:00 O2 Delivery Device VENTILATOR 02/24/22 10:00 Vent Mode ASSIST/CONTROL 02/24/22 10:00 FiO2 80.00 02/24/22 10:00 Tidal Volume 500 mL 02/24/22 10:00 PEEP 5 cmH2O 02/24/22 10:00 Sodium 140 mmol/L (135-145) 03/01/22 09:38 Potassium 3.7 mmol/L (3.5-5.0) 03/01/22 09:38 Chloride 106 mmol/L (101-111) 03/01/22 09:38 Carbon Dioxide 24 mmol/L (21-32) 03/01/22 09:38 Anion Gap 10.0 (6-13) 03/01/22 09:38 BUN 9 mg/dL (6-20) 03/01/22 09:38 Creatinine 1.3 mg/dL (0.6-1.2) H 03/01/22 09:38 Estimated GFR (MDRD) 69 (>89) L 03/01/22 09:38 Glucose 136 mg/dL (70-100) H 03/01/22 09:38 Estimat Average Glucose 143 mg/dL (70-100) H 03/01/22 04:55 Hemoglobin A1c % 6.6 % (4.27-6.07) H 03/01/22 04:55 Calcium 9.0 mg/dL (8.5-10.3) 03/01/22 09:38 Phosphorus 3.7 mg/dL (2.5-4.6) 02/28/22 05:00 Magnesium 2.0 mg/dL (1.7-2.8) 02/28/22 05:00 Iron 14 ug/dL (45-182) L 02/26/22 05:30 TIBC 420 ug/dL (250-450) 02/26/22 05:30 % Saturation 3 % (20-50) L 02/26/22 05:30 Transferrin 300 mg/dL (180-329) 02/26/22 05:30 Ferritin 198.7 ng/mL (23.9-336.2) 02/26/22 05:30 Total Bilirubin 0.3 mg/dL (0.2-1.0) 02/28/22 05:00 AST 24 IU/L (10-42) 02/28/22 05:00 ALT 28 IU/L (10-60) 02/28/22 05:00 Alkaline Phosphatase 88 IU/L (42-121) 02/28/22 05:00 Lactate Dehydrogenase 176 IU/L (91-225) 02/26/22 05:30 Troponin I High Sens 6.1 ng/L (2.3-19.7) 02/24/22 14:22 Total Protein 6.9 g/dL (6.7-8.2) 02/28/22 05:00 Albumin 3.2 g/dL (3.2-5.5) 02/28/22 05:00 Globulin 3.7 g/dL (2.1-4.2) 02/28/22 05:00 Albumin/Globulin Ratio 0.9 (1.0-2.2) L 02/28/22 05:00 Vitamin B12 338 pg/mL (180-914) 02/26/22 05:30 Nasal Screen MRSA (PCR) NEGATIVE (NEGATIVE) 02/24/22 11:00 SARS-CoV-2 (PCR) NOT DETECTED 02/25/22 05:30
[2022-03-02 05:16] LABS: BASOPHILS # (AUTO) 0.1 10^3/uL (0.0-0.1); EOSINOPHILS # (AUTO) 0.3 10^3/uL (0.0-0.7); EOSINOPHILS % (AUTO) 2.6 %; HCT - HEMATOCRIT 26.2 % (42.0-52.0); HGB - HEMOGLOBIN 8.1 g/dL (14.0-18.0); LYMPHOCYTES # (AUTO) 2.2 10^3/uL (1.5-3.5); LYMPHOCYTES % (AUTO) 18.5 %; MEAN CORPUSCULAR HEMOGLOBIN 27.3 pg (27.0-31.0); MEAN CORPUSCULAR HGB CONC 30.9 g/dL (32.0-36.0); MEAN CORPUSCULAR VOLUME 88.2 fL (80.0-94.0); MEAN PLATELET VOLUME 8.7 fL (7.4-11.4); MONOCYTES % (AUTO) 8.6 %; NEUTROPHILS # (AUTO) 7.9 10^3/uL (1.5-6.6); NEUTROPHILS % (AUTO) 68.1 %; NRBC ABSOLUTE COUNT (AUTO) 0.07 x10^3/uL; NUCLEATED RED BLOOD CELLS AUTO 0.6 /100WBC; PLT - PLATELET COUNT 383 10^3/uL (130-450); RED BLOOD COUNT 2.97 10^6/uL (4.70-6.10); RED CELL DISTRIBUTION WIDTH 15.5 % (12.0-15.0); WHITE BLOOD COUNT 11.6 x10^3/uL (4.8-10.8)
[2022-03-02 05:25] LABS: CALCIUM 8.6 mg/dL (8.5-10.3); CREATININE 1.3 mg/dL (0.6-1.2); POTASSIUM 3.7 mmol/L (3.5-5.0)
--- NOTE | 2022-03-02 07:16 | Discharge Plan ---
Discharge Plan Problem Reviewed?: Yes Disposition: Home, Self Care Condition: Stable Prescriptions: diltiaZEM CD [Cardizem Cd] 120 mg PO BID #60 cap Amiodarone [Pacerone] 200 mg PO DAILY #30 tab Albuterol Sulfate [Proair Digihaler] 90 mcg IH QID PRN #1 each PRN Reason: Wheezing Metoprolol Succinate [Toprol Xl] 75 mg PO BID #180 tab Thiamine [Vitamin B-1] 100 mg PO DAILY #30 tab Diet: Diabetic Activity Restrictions: Activity as Tolerated Shower Restrictions: No Driving Restrictions: No Instruction Topics: Diltiazem extended-release capsules or tablets, Amiodarone tablets Health Concerns: You were hospitalized because you had respiratory complications during anesthesia that was being given for endoscopy procedures. You were in the ICU. You are on a ventilator. You had a pneumonia and a mucous plug. You had very rapid A. fib that was difficult to control. You received IV medications and antibiotics. You are being discharged home today and there are several new medications now and some of your previous medications have been stopped. All the new medication prescriptions were electronically sent to your [facility] pharmacy in [place]. Please continue to no longer smoke cigarettes! Please see your Qa Intern in the next 1 to 4 weeks, because you are on 3 new medicines for your A-fib which need to be monitored by your doctor. Please see your Primary Care Provider in the next 1 to 2 weeks for a hospital follow-up office visit. You need to have a blood test to check your Amiodarone level in the next 1 to 2 weeks. You have lung disease (emphysema also called COPD). You would benefit from attending Pulmonary Rehab here [facility]. Your doctor will need to order this for you. Plan of Treatment: As above. Care Goals: Improvement in symptoms and stabilization are the goals. Assessment: The patient understands and is agreeable with the plan. Additional Instructions or Follow Up instructions: If you have new or worsening symptoms, call your primary care provider for advice, or come to the ER. Follow-Up Care: [facility] - Pulmonary No Smoking: If you smoke, Please STOP! Call for help. Follow-up with: Concepcion Enriquez PA [Primary Care Provider] -
[2022-03-02] MEDS: SODIUM CHLORIDE FLUSH 0.9% 10 ML SYRINGE IVP SCH ×2 (07:21→08:09)
[2022-03-02] MEDS ORDERED: BENZOCAINE/MENTHOL LOZENGE MM PRN (07:37)
[2022-03-02] MEDS: PANTOPRAZOLE 40 MG TABLET PO SCH (07:54)
[2022-03-02] MEDS: AMIODARONE 200 MG TABLET PO SCH (08:08)
[2022-03-02] MEDS: PRENATAL VITAMIN TABLET PO SCH (08:08)
[2022-03-02] MEDS: APIXABAN 5 MG TABLET PO SCH (08:08)
[2022-03-02] MEDS: THIAMINE 100 MG TABLET PO SCH (08:08)
[2022-03-02] MEDS: METOPROLOL SUCCINATE 25 MG TABLET PO SCH (08:09)
[2022-03-02] MEDS: diltiaZEM CD 120 MG CAPSULE PO SCH (08:09)
--- NOTE | 2022-03-02 10:09 | DISCHARGE SUMMARY ---
Discharge Summary Admit Date: 02/24/22 Discharge Date: 03/02/22 Discharging Provider: Dr Alivia Traylor Primary Care Provider: Concepcion Enriquez NP Code Status: Do Not Attempt Resuscitation Condition at Discharge: Stable Discharge Disposition: 01 Home, Self Care - HPI History of Present Illness: This is a 56-year-old -Citizen Of [place] male admitted to the ICU after experiencing acute respiratory failure with hypoxia in the surgical suite. He was scheduled for an elective upper and lower GI scope d/t a history of benign gastric tumor and recent blood per rectum. His past medical history included hypertension, smoking (0.5 pack x 20 years), untreated sleep apnea, and recent onset of afib treated with metoprolol and xarelto. He had cardiology clearance prior to his procedure. On arrival to the surgical suite, full standard of care monitors were applied, oxygen was applied at 10L per minute via mask and propofol and versed were given IV. Immediate after onset of sedation, pt began to cough uncontrollably and had copious oral secretions. His airway patency became difficult to maintain and the patient experienced several episodes of quick oxygen desaturations. The procedure was halted and 100% oxygen was administered, with bag valve mask to assist in respiration. His oxygen saturation improved, but d/t difficulty maintaining his airway and inadequate oxygen saturations, the decision to cancel the procedure and secure the airway with ETT intubation was made. Pt's intubation was achieved with a glidescope and reported to be uneventful per [facility]ia provider. There was also no emesis or apparent aspiration noted at that time. At that point, it was necessary to move the patient via gurney to a room with an anesthesia machine. It became increasingly difficult to maintain adequate oxygenation shortly after intubation, and his oxygen saturation levels dropped to 70-80% despite the administration of 100% oxygen, peep of 5, and muscle relaxation. He also required phenylephrine to maintain adequate blood pressure. A chest x-ray was performed intraoperatively, the ETT was shown to be in good position, but the left chest was reported to be completely maude out. Upon receiving the chest x-ray results, surgical care team made the decision to cancel the procedure. Pt was then direct admitted to the ICU, where he remains intubated. A chest /thorax CTA was performed with IV contrast, the impressions of the imaging results are as follows: 1. No PE 2. Malpositioned NGT 3. Left lower lobe collapse 4. Left adrenal adenoma 5. Coronary artery disease He has been reported to be a frequent binge drinker, one chart reports 2 glasses of beer per day. He currently smokes and has a history of 0.5 a pack per day for 20 years. He is on the Hospitalist service in critical condition. - HOSPITAL COURSE Hospital Course: (1) Acute respiratory failure with hypoxia Pt was intubated due to intractable oxygen desaturation post sedation with IV propofol, which was given for an upper and lower endoscopy. He was intubated in the OR and was admitted to the ICU. We obtained a CT pulmonary angiogram to assess for pulmonary embolus. No PE was seen. Left lower lobe collapse was present. Calcifications of the coronary arteries was mild. Thyroid was normal size. Visualized portions of the upper abdomen demonstrated a left adrenal nodule that was 22 mm. He was kept intubated overnight and extubated 02/25/22. Repeat chest x-ray showed improved aeration of the lungs, but still some atelectasis in the left lower lung but no pneumothorax or pleural effusion. Heart size mildly to m oderately enlarged. Mediastinal contours appear normal. He was bringing up quite a bit of phlegm submitted for culture and we started him on empiric antibiotic Ceftriaxone and Zithromax on 02/25. The final respiratory culture report was identified as growing Strep mitis and Beta- hemolytic Strep B. These were sensitive to cephalosporins. He completed his entire course of antibiotics while here, and did not require an order for home O2 at discharge. When he initially spoke after extubation, he has stridor, and it may have been laryngeal due to intubation and extubation. Anesthesia had seen a soft tissue mass in his neck when they were putting in his central line. We did a CT of the neck and other than slight parathyroid enlargement nothing else was seen. From his daughter's input about his history, we do think that he most likely had a mucous plug. This is a gentleman who was drinking for 6 days in a row. She described him as basically drinking for hours at a time, falling asleep for a few hours of a nap to only wake up and do it all over again. He then stopped drinking alcohol cold turkey, and did a bowel prep for the scheduled procedure. He was discharged home on new daily Thiamine orally and advised to stop drinking alcohol excessively. (2) Collapse of left lung A chest/thorax CTA was performed with IV contrast, the impressions of the imagin g result s showed Left lower lobe collapse. Mucous plug was suspected the cause. CT did not show foreign body. CT did not show an endobronchial lesion. He produced daily phlegm, but the lung re-expanded. since we repeated his chest x- ray and it showed improved aeration of the lungs. Recommend a chest x-ray in a month, as well as possibly a Pulmonary consult for bronchoscopy in the outpatient setting. (3) Atrial fibrillation with RVR The event which led him to be hospitalized was pulmonary in origin, but while here he went from sinus rhythm into atrial fibrillation with RVR, requiring a diltiazem drip. Trended troponins here were unremarkable. He then was in and out of A. fib-flutter, mostly when he was active. He was also on an amiodarone drip and was transitioned to p.o. amiodarone, po Cardizem and a long acting beta-zara. He was on Xarelto at home, which we substituted for Eliquis here, since Xarelto is not on hospital formulary. Careful use of anticoagulant in the future will be left up to PCP and provider of EGD and colonoscopy. He was in sinus rhythm at the time of discharge. (4) VTach A 3 beat run of VT was seen on telemetry. It was precipitated by quick burst of paroxysmal atrial flutter. His Echo done here showed normal LV size, with LVH and normal resting LV function. He was continued on oral Amiodarone for maintaining NSR and suppressing VTach. (5) Cor pulmonale The Echo here had findings are of an enlarged RV. This suggests that his pulm disease is significant and possibly more chronic. He has been a longtime smoker. Pulmonary referral is advised. (6) Hypertension Previously diagnosed hypertension. Blood pressure was controlled at home on metoprolol, amlodipine and benazepril. Now he is on Cardizem, Metoprolol Succ and Amio. Benazepril and Amlodipine were stopped. (7) Anemia, Iron deficiency Baseline hemoglobin was 12.1-13.5. Before his colonoscopy Hgb was 8.8. Now in retrospect, we think he may have dropped his hemoglobin because he was having bright red blood per rectum for 2 days prior to scheduled colonoscopy. The anemia was the entire reason he was getting an upper and lower endoscopy. Anemia W/U showed iron deficiency anemia. Normal B12. High retic count but absolute reticulocyte count normal. He was already fecal occult blood positive. He will eventually need the upper and lower endoscopy to be completed, since his respiratory event canceled his entire EGD and colonoscopy. He still has not had a planned stress test. I will leave to the discretion of his PCP and [employer] to see if they want to get those studies done before the next attempt at EGD and colonoscopy. He was discharged home on new empiric Omeprazole. (8) Tobacco use He voiced interest in stopping smoking, realizing how severe his condition with his lungs was. He did not need a nicotine patch here. He was prescribed a rescue inhaler of ProAir at the time of discharge. - ALLERGIES Allergies/Adverse Reactions: Allergies Allergy/AdvReac Type Severity Reaction Status Date / Time losartan Allergy Hives Verified 02/20/22 12:21 - MEDICATIONS Home Medications: Ambulatory Orders Medication Instructions Recorded Confirmed Rivaroxaban [Xarelto] 20 mg PO QPM 02/20/22 02/24/22 Albuterol Sulfate [Proair 90 mcg IH QID PRN #1 each 03/02/22 Respiclick] Amiodarone [Pacerone] 200 mg PO DAILY #30 tab 03/02/22 Metoprolol Succinate [Toprol Xl] 50 mg PO QPM #30 tablet 03/02/22 Metoprolol Succinate [Toprol Xl] 100 mg PO DAILY #30 tablet 03/02/22 Omeprazole Magnesium 20 mg PO DAILY PRN #30 tab 03/02/22 Thiamine [Vitamin B-1] 100 mg PO DAILY #30 tab 03/02/22 diltiaZEM CD [Cardizem Cd] 240 mg PO 1200 #30 cap 03/02/22 - PHYSICAL EXAM AT DISCHARGE General Appearance: positive: No acute distress, Alert Eyes Bilateral: positive: Normal inspection, EOMI ENT: positive: ENT inspection nml, No signs of dehydration, Other (upper airway rhonchi heard) Respiratory: positive: No respiratory distress, Other (scattered rhonchi heard, no wheezing or rales, equal air mvm in both lungs) Cardiovascular: positive: Regular rate & rhythm, No murmur Abdomen: positive: Non-tender, Nml bowel sounds, No distention Skin: positive: Warm, Dry Extremities: positive: Non-tender, No pedal edema Neurologic/Psychiatric: positive: Oriented x3, Motor nml (non-focal) - LABS Result Diagrams: 03/02/22 05:00 03/02/22 05:00 - DIAGNOSTIC IMAGING Diagnostic Imaging Results: Final report reviewed - FOLLOW UP Follow Up: See PCP in 1-2 weeks. - TIME SPENT Time Spent in Discharge (Minutes): 50
[2022-03-02 11:31] VITALS: BP 143/80
== END 2022-03-02 13:30 | disposition home or self-care (01) | DRG 208 ==
LOC: SDS 06:23 → ICU 08:46 → MS2 09:04 → ICU 09:07 → MS2 03-01 13:27
PROVIDERS: ADMIT Surgery; ATTEND Internal Medicine
PROC: 02HV33Z Insertion of Infusion Device into Superior Vena Cava, Percutaneous Approach (ICD-10-PCS; principal; 2022-02-24 07:30)
PROC: 5A1945Z Respiratory Ventilation, 24-96 Consecutive Hours (ICD-10-PCS; 2022-02-24 07:30)
DX: J96.01 Acute respiratory failure with hypoxia (principal); J15.3 Pneumonia due to streptococcus, group B; J98.19 Other pulmonary collapse; I48.92 Unspecified atrial flutter; I47.20 Ventricular tachycardia, unspecified; I48.91 Unspecified atrial fibrillation; Z79.01 Long term (current) use of anticoagulants; I27.81 Cor pulmonale (chronic); I10 Essential (primary) hypertension; D50.9 Iron deficiency anemia, unspecified; Z87.19 Personal history of other diseases of the digestive system; F17.210 Nicotine dependence, cigarettes, uncomplicated; D35.02 Benign neoplasm of left adrenal gland; I25.10 Atherosclerotic heart disease of native coronary artery without angina pectoris; R19.5 Other fecal abnormalities; T17.990A Other foreign object in respiratory tract, part unspecified in causing asphyxiation, initial encounter; G47.30 Sleep apnea, unspecified; Z66 Do not resuscitate; R22.1 Localized swelling, mass and lump, neck; J43.9 Emphysema, unspecified; E66.9 Obesity, unspecified; Z68.33 Body mass index [BMI] 33.0-33.9, adult; M19.90 Unspecified osteoarthritis, unspecified site; G89.29 Other chronic pain; M54.9 Dorsalgia, unspecified; Z20.822 Contact with and (suspected) exposure to COVID-19
CPT/HCPCS: 36415; 36600; 70491; 71045; 71275; 80048; 80053; 82330; 82607; 82728; 82803; 83036; 83540; 83615; 83735; 84100; 84132; 84466; 84484; 85025; 85045; 87070; 87077; 87150; 87181; 87205; 87635; 93005; 93306; 94002; 94003; 94640; A9270; J0282; J0330; J1650; J7120; Q9967; 94770

== ENCOUNTER 2022-04-17 10:31 | Outpatient (CLI) | payer MEDICAID ==
[2022-04-17 10:47] LABS: BASOPHILS # (AUTO) 0.1 10^3/uL (0.0-0.1); BASOPHILS % (AUTO) 0.9 %; EOSINOPHILS # (AUTO) 0.2 10^3/uL (0.0-0.7); EOSINOPHILS % (AUTO) 1.6 %; HGB - HEMOGLOBIN 8.8 g/dL (14.0-18.0); LYMPHOCYTES # (AUTO) 2.4 10^3/uL (1.5-3.5); LYMPHOCYTES % (AUTO) 25.7 %; MEAN CORPUSCULAR HEMOGLOBIN 22.8 pg (27.0-31.0); MEAN CORPUSCULAR HGB CONC 28.4 g/dL (32.0-36.0); MEAN CORPUSCULAR VOLUME 80.3 fL (80.0-94.0); MEAN PLATELET VOLUME 8.8 fL (7.4-11.4); MONOCYTES # (AUTO) 0.9 10^3/uL (0.0-1.0); MONOCYTES % (AUTO) 10.1 %; NEUTROPHILS # (AUTO) 5.7 10^3/uL (1.5-6.6); NEUTROPHILS % (AUTO) 61.1 %; NRBC ABSOLUTE COUNT (AUTO) 0.02 x10^3/uL; NUCLEATED RED BLOOD CELLS AUTO 0.2 /100WBC; PLT - PLATELET COUNT 409 10^3/uL (130-450); RED BLOOD COUNT 3.86 10^6/uL (4.70-6.10); RED CELL DISTRIBUTION WIDTH 17.5 % (12.0-15.0); WHITE BLOOD COUNT 9.4 x10^3/uL (4.8-10.8)
[2022-04-17 11:12] LABS: PLATELET ESTIMATE, MANUAL NORMAL (130-450,000) (NORMAL); PLATELET MORPHOLOGY NORMAL APPEARANCE (NORMAL); RBC MORPHOLOGY (MULTIPLE) 1+ HYPOCHROMASIA (NORMAL); SLIDE REVIEW? Indicated; WBC MORPHOLOGY (MULTIPLE) NORMAL APPEARANCE (NORMAL)
[2022-04-17 11:15] LABS: ALBUMIN 3.9 g/dL (3.2-5.5); BILIRUBIN,TOTAL 0.4 mg/dL (0.2-1.0); CALCIUM 8.9 mg/dL (8.5-10.3); CREATININE 1.2 mg/dL (0.6-1.2); POTASSIUM 4.4 mmol/L (3.5-5.0); TOTAL PROTEIN 7.8 g/dL (6.7-8.2)
[2022-04-17 11:20] LABS: THYROID STIMULATING HORMONE 1.89 uIU/mL (0.34-5.60)
[2022-04-17 11:26] LABS: FERRITIN 7.3 ng/mL (23.9-336.2)
== END 2022-04-17 10:32 | disposition home or self-care (01) ==
LOC: LAB 10:31
PROVIDERS: ATTEND Physician Assistant
DX: D64.9 Anemia, unspecified (principal); Z51.81 Encounter for therapeutic drug level monitoring
CPT/HCPCS: 36415; 80053; 82728; 83540; 84443; 84466; 85025

== ENCOUNTER 2022-04-28 09:29 | Outpatient (CLI) | payer MEDICAID ==
[2022-04-28] MEDS ORDERED: iohexoL-300 100 ML VIAL ONE (09:48)
[2022-04-28] MEDS ORDERED: DIATRIZOATE MEGLU/DIATRIZO SOD 30 ML BOTTLE PO ONE ×2 (09:48→11:53)
[2022-04-28] MEDS ORDERED: iohexoL-300 100 ML VIAL IVP ONE (11:52)
--- NOTE | 2022-04-28 14:19 | CT Report ---
PROCEDURE: ABDOMEN/PELVIS W INDICATIONS: ANEMIA, BLOOD IN STOOL CONTRAST: 100mL [id number] TECHNIQUE: After the administration of IV and oral contrast, 5 mm thick sections acquired from the diaphragms to the symphysis. 5 mm thick coronal and sagittal reformats were acquired. For radiation dose reducti on, the following was used: automated exposure control, adjustment of mA and/or kV according to hector ent size. COMPARISON: 10/04/2016 FINDINGS: Image quality: Excellent. ABDOMEN: Lung bases: Mild cardiomegaly. Minor bibasilar atelectatic changes. No hiatal hernia. Solid organs: The liver is elongated and slightly hypodense. No hepatic mass. The gallbladder is part ially decompressed. No biliary dilatation. The pancreas, spleen and right adrenal gland appear normal . A 1.9 cm nodule arises from the posterior left adrenal gland with indeterminate Hounsfield units of 23. The kidneys demonstrate symmetric enhancement as well as a few hypoenhancing cortical cysts bila terally. No hydronephrosis, hydroureter, or ureteral calcification. Peritoneum and bowel: Surgical staple lines are present in the stomach which appears otherwise normal . Small bowel loops are normal caliber. A normal appendix is present. The colon is fairly decompresse d. No visible masses, wall thickening, or obstruction. No free fluid or air. Nodes and vessels: No retroperitoneal or mesenteric adenopathy by size criteria. Aorta and inferior vena cava are normal in size. Miscellaneous: No ventral hernias. PELVIS: Genitourinary: Bladder wall thickness is normal. The prostate gland is nonenlarged. Miscellaneous: No inguinal hernias or adenopathy. Bones: No suspicious bony lesions. Degenerative disc disease at L5-S1. No vertebral body compressio n fractures. IMPRESSION: 1. Normal CT appearance of bowel loops. 2. Excision of gastric mass without recurrent abnormality in the stomach. 3. Mild hepatomegaly and hepatic steatosis. 4. 1.9 cm left adrenal nodule, minimally increased in size compared to the prior study but without ot her significant change, probably benign adenoma. Reviewed by: Hallie Tijerina MD on 04/28/2022 2:17 PM PST Approved by: Hallie Tijerina MD on 04/28/2022 2:17 PM PST Station ID: [id number]
== END 2022-04-28 09:30 | disposition home or self-care (01) ==
LOC: DI 09:29
PROVIDERS: ATTEND Physician Assistant
DX: K92.1 Melena (principal); D64.9 Anemia, unspecified; Z85.09 Personal history of malignant neoplasm of other digestive organs; K76.0 Fatty (change of) liver, not elsewhere classified; E27.9 Disorder of adrenal gland, unspecified
CPT/HCPCS: 74177; Q9963; Q9967

== ENCOUNTER 2022-05-10 09:18 | Emergency (ER) | payer MEDICAID ==
[2022-05-10 09:48] LABS: BASOPHILS # (AUTO) 0.1 10^3/uL (0.0-0.1); BASOPHILS % (AUTO) 0.7 %; EOSINOPHILS # (AUTO) 0.1 10^3/uL (0.0-0.7); EOSINOPHILS % (AUTO) 0.8 %; HCT - HEMATOCRIT 20.8 % (42.0-52.0); LYMPHOCYTES # (AUTO) 1.6 10^3/uL (1.5-3.5); LYMPHOCYTES % (AUTO) 12.5 %; MEAN CORPUSCULAR HEMOGLOBIN 23.8 pg (27.0-31.0); MEAN CORPUSCULAR HGB CONC 26.9 g/dL (32.0-36.0); MEAN CORPUSCULAR VOLUME 88.5 fL (80.0-94.0); MEAN PLATELET VOLUME 9.4 fL (7.4-11.4); MONOCYTES % (AUTO) 7.6 %; NEUTROPHILS # (AUTO) 10.2 10^3/uL (1.5-6.6); NEUTROPHILS % (AUTO) 77.7 %; NUCLEATED RED BLOOD CELLS AUTO 0.8 /100WBC; PLT - PLATELET COUNT 396 10^3/uL (130-450); RED BLOOD COUNT 2.35 10^6/uL (4.70-6.10); RED CELL DISTRIBUTION WIDTH 21.9 % (12.0-15.0); WHITE BLOOD COUNT 13.1 x10^3/uL (4.8-10.8)
[2022-05-10 09:53] LABS: HGB - HEMOGLOBIN 5.6 g/dL (14.0-18.0); SLIDE REVIEW? Indicated
[2022-05-10 10:02] LABS: ALBUMIN 3.5 g/dL (3.2-5.5); BILIRUBIN,TOTAL 0.5 mg/dL (0.2-1.0); CALCIUM 8.3 mg/dL (8.5-10.3); CREATININE 1.7 mg/dL (0.6-1.2); POTASSIUM 4.1 mmol/L (3.5-5.0); TOTAL PROTEIN 7.1 g/dL (6.7-8.2)
[2022-05-10 10:08] LABS: PLATELET ESTIMATE, MANUAL NORMAL (130-450,000) (NORMAL); PLATELET MORPHOLOGY NORMAL APPEARANCE (NORMAL)
--- NOTE | 2022-05-10 10:11 | XRAY Report ---
PROCEDURE: Chest 1 View X-Ray INDICATIONS: chest pain TECHNIQUE: One view of the chest was acquired. COMPARISON: None. FINDINGS: Surgical changes and devices: None. Lungs and pleura: Lung volumes are low. Streaky pulmonary opacities are present at the right lung ba se. There are diffuse interstitial radiopacities as well. Mediastinum: Mediastinal contours appear normal. Heart size is enlarged. Bones and chest wall: No suspicious bony lesions. Overlying soft tissues appear unremarkable. IMPRESSION: 1. Cardiomegaly and interstitial prominence suggesting fluid overload. 2. Right basilar pulmonary radiopacities. Differential considerations include atelectasis, aspiration , and infection. Reviewed by: Dominique Yao MD on 05/10/2022 10:10 AM [facility] Approved by: Dominique Yao MD on 05/10/2022 10:10 AM [facility] Station ID: [id number]
[2022-05-10] MEDS ORDERED: PANTOPRAZOLE 40 MG VIAL IV STA (12:55)
--- NOTE | 2022-05-10 12:57 | ED Physician Documentation ---
History of Present Illness - Stated complaint Stated Complaint: SOA/BLOOD IN STOOL - Chief complaint Chief Complaint: Abd Pain - History obtained from History obtained from: Patient - Additonal information Additional information: The patient comes to the emergency department chief complaint of generalized weakness and shortness of breath increasing over the last couple of weeks. He states that he has not been ill with anything as far as he knows. He is a smoker and has some degree of history of COPD. He does not use any oxygen at home. The patient states that he has a history of upper GI bleed and has been having intermittent maroon stools over the last couple of weeks. He states he has not had any hematemesis however. His last stool was normal. The patient according to records also has a history of regular alcohol use and was in fact seen here in February for upper GI bleed as well. At that time, surgery did attempt to do a scope on him; however, the patient had a violent coughing reaction after the administration of anesthesia and then developed hypoxia, followed by Anish lopez with RVR. He ultimately ended up being intubated and stayed in the hospital for a week. He was discharged on Xarelto which he is still taking. He denies any palpitations. He states he mainly feels short of breath when he is ambulating, especially going up the stairs. He has not had any edema in his lower extremities. The patient was not placed on any antacids. He has seen his PA recently and states that initially, she was going to stop his Xarelto temporarily, but then ended up keeping him on it, despite the bleeding. No other complaints at this time. No chest pain or abdominal pain. Review of Systems Ten Systems: 10 systems reviewed and negative Constitutional: reports: Reviewed and negative Eyes: reports: Reviewed and negative Ears: reports: Reviewed and negative Nose: reports: Reviewed and negative Throat: reports: Reviewed and negative Cardiac: reports: Reviewed and negative Respiratory: reports: Dyspnea GI: reports: Bloody / black stool : reports: Reviewed and negative Skin: reports: Reviewed and negative Musculoskeletal: reports: Reviewed and negative Neurologic: reports: Generalized weakness Psychiatric: reports: Reviewed and negative Endocrine: reports: Reviewed and negative Immunocompromised: reports: Reviewed and negative PD PAST MEDICAL HISTORY - Past Medical History Past Medical History: Yes Cardiovascular: Hypertension, High cholesterol, Atrial fibrillation Respiratory: Sleep apnea Neuro: None Endocrine/Autoimmune: None GI: None, Other : None HEENT: None Psych: None Musculoskeletal: None Derm: None - Past Surgical History Past Surgical History: No General: Gastric surgery, EGD - Present Medications Home Medications: Ambulatory Orders Medication Instructions Recorded Confirmed Rivaroxaban [Xarelto] 20 mg PO QPM 02/20/22 02/24/22 Albuterol Sulfate [Proair 90 mcg IH QID PRN #1 each 03/02/22 Respiclick] Amiodarone [Pacerone] 200 mg PO DAILY #30 tab 03/02/22 Metoprolol Succinate [Toprol Xl] 50 mg PO QPM #30 tablet 03/02/22 Metoprolol Succinate [Toprol Xl] 100 mg PO DAILY #30 tablet 03/02/22 Omeprazole Magnesium 20 mg PO DAILY PRN #30 tab 03/02/22 Thiamine [Vitamin B-1] 100 mg PO DAILY #30 tab 03/02/22 diltiaZEM CD [Cardizem Cd] 240 mg PO 1200 #30 cap 03/02/22 - Allergies Allergies/Adverse Reactions: Allergies Allergy/AdvReac Type Severity Reaction Status Date / Time losartan Allergy Hives Verified 02/20/22 12:21 - Social History Does the pt smoke?: Yes Smoking Status: Current every day smoker Does the pt drink ETOH?: Yes Does the pt have substance abuse?: No - Immunizations Immunizations are current?: Yes - POLST Patient has POLST: Yes POLST Status: DNR PD ED PE NORMAL - Vitals Vital signs reviewed: Yes - General General: Alert and oriented X 3, No acute distress, Well developed/nourished - HEENT HEENT: Atraumatic, PERRL, EOMI, Moist mucous membranes - Neck Neck: Supple, no meningeal sign - Cardiac Cardiac: RRR, No murmur, Strong equal pulses - Respiratory Respiratory: No respiratory distress, Clear bilaterally - Abdomen Abdomen: Soft, Non tender, Non distended - Derm Derm: Normal color, Warm and dry, No rash, Other (Moderate pallor of nailbeds) - Extremities Extremities: No deformity, No edema - Neuro Neuro: Alert and oriented X 3, Other (Grossly intact) - Psych Psych: Normal mood, Normal affect Results - Vitals Vitals: Vital Signs - 24 hr 12/28/22 12/28/22 12/28/22 09:25 11:30 12:24 Temperature 36.6 C 36.8 C Heart Rate 67 60 Heart Rate [ 63 Monitoring electrodes] Respiratory 23 23 16 Rate Blood Pressure 139/65 H 137/93 H Blood Pressure [Right Brachial artery] O2 Saturation 100 100 100 05/10/22 05/10/22 12:32 12:37 Temperature 36.8 C 36.8 C Heart Rate 63 Heart Rate [ 65 Monitoring electrodes] Respiratory 16 18 Rate Blood Pressure 157/79 H Blood Pressure 143/80 H [Right Brachial artery] O2 Saturation 100 98 Oxygen O2 Source Room air - Labs Labs: Laboratory Tests 05/10/22 05/10/22 05/10/22 09:40 09:40 10:06 WBC 13.1 H RBC 2.35 L Hgb 5.6 L* Hct 20.8 L MCV 88.5 MCH 23.8 L MCHC 26.9 L RDW 21.9 H Plt Count 396 MPV 9.4 Neut # (Auto) 10.2 H Lymph # (Auto) 1.6 [place] # (Auto) 1.0 Eos # (Auto) 0.1 Baso # (Auto) 0.1 Absolute Nucleated RBC 0.10 Nucleated RBC % 0.8 Manual Slide Review Indicated Platelet Estimate NORMAL (130-450,000) Platelet Morphology NORMAL APPEARANCE RBC Morph Micro Appear 1+ POLYCHROMASIA Sodium 139 Potassium 4.1 Chloride 106 Carbon Dioxide 23 Anion Gap 10.0 BUN 15 Creatinine 1.7 H Estimated GFR (MDRD) 50 L Glucose 153 H Calcium 8.3 L Total Bilirubin 0.5 AST 21 ALT 20 Alkaline Phosphatase 115 Total Protein 7.1 Albumin 3.5 Globulin 3.6 Albumin/Globulin Ratio 1.0 Lipase 35 Blood Type O POSITIVE Antibody Screen NEGATIVE Crossmatch IS Only See Detail PD Medical Decision Making - ED course Complexity details: reviewed results, re-evaluated patient, considered differential, d/w patient ED course: The patient was worked up with laboratory studies including ER abdominal panel and CBC which were both reviewed by me. CBC showed a hemoglobin of 5.6. A type and cross was obtained and patient was started on transfusion of 2 units of blood. The patient's case was discussed with Dr. Ackerman, who stated he would consult on the patient, though he felt he would unlikely scope the patient here, given his chronic alcohol use in the complications with anesthesia last time. I discussed the case with Dr. Traylor, who agreed to the patient to her service For transfusion. The patient has been given a dose of IV Protonix here. He is hemodynamically stable and otherwise well-appearing and currently, has normal stools.. Departure - Departure Disposition: ED Place in Observation Clinical Impression: Upper GI bleed, Symptomatic anemia Condition: Serious
[2022-05-10 13:12] LABS: B. PARAPERTUSSIS- RESP PCR PAN NOT DETECTED; B. PERTUSSIS- RESP PCR PANEL NOT DETECTED; C. PNEUMONIAE- RESP PCR PANEL NOT DETECTED; CORONAVIRUS 229E-RESP PCR NOT DETECTED; CORONAVIRUS HKU1-RESP PCR NOT DETECTED; CORONAVIRUS NL63-RESP PCR NOT DETECTED; CORONAVIRUS OC43-RESP PCR NOT DETECTED; HUMAN METAPNEUMOVIRUS NOT DETECTED; INFLUENZA A- RESP PCR PANEL NOT DETECTED; INFLUENZA B - RESP PCR PANEL NOT DETECTED; M. PNEUMONIAE- RESP PCR PANEL NOT DETECTED; PARAINFLUENZA VIRUS 1 NOT DETECTED; PARAINFLUENZA VIRUS 2 NOT DETECTED; PARAINFLUENZA VIRUS 3 NOT DETECTED; PARAINFLUENZA VIRUS 4 NOT DETECTED; RHINOVIRUS/ENTEROVIRUS NOT DETECTED; RSV- RESP PCR PANEL NOT DETECTED; SARS-CoV-2 -RESP PCR PANEL NOT DETECTED
--- NOTE | 2022-05-10 17:11 | CONSULTATION NOTE ---
Referring Provider Consult Date: 05/10/22 Chief Complaint - Chief Complaint Chief Complaint: shortness breath with activity History of Present Illness - History Obtained From Records Reviewed: yes History obtained from: pt Exam Limitations: none - History of Present Illness HPI Comment/Other: history of anemia and prior workup revealing a benign gastric tumor. he had surgery for this at [facility]. he continues to have waxing and waning anemia over many months. egd and colonoscopy was scheduled at [facility] in february. he had respiratory failure with light sedation. scope studies were not done. he is not a candidate for procedures at [facility]. He states he gets blood into the toilet and on the tissue with bms. no trouble eating or weight loss. he has been seeing cardiology in [place]. he is seen in the ed and found to be anemic. he is getting blood now. he appears very well. cxr IMPRESSION: 1. Cardiomegaly and interstitial prominence suggesting fluid overload. 2. Right basilar pulmonary radiopacities. Differential considerations include atelectasis, aspiration, and infection. Reviewed by: Dominique Yao MD on 05/10/2022 10:10 AM [facility] Approved by: Dominique Yao MD on 05/10/2022 10:10 AM PST History - Past Medical History Cardiovascular: reports: Hypertension, High cholesterol, Atrial fibrillation Respiratory: reports: Sleep apnea Neuro: reports: None Endocrine/Autoimmune: reports: None GI: reports: None, Other : reports: None HEENT: reports: None Psych: reports: None Musculoskeletal: reports: None Derm: reports: None MRSA Hx?: No - Past Surgical History General: reports: Gastric surgery, EGD - Family & Social History Family History Comment/Other: Family history obtained from a variety of past medical records, since pt is intubated and unable to answer questions. He has no significant family history of cancers or CAD. Lives with spouse (Britt) in [place]. He has been reported by his NOK to be a frequent binge drinker, one chart reports 2 glasses of beer per day. He currently smokes and has a history of 0.5 a pack per day for 20 years. Other substance use is unknown. Living Situation: With spouse/s.o. - Substance History Use: Uses substance without health or social issues: Tobacco, Alcohol - POLST Patient has POLST: Yes POLST Status: DNR Meds/Allgy - Home Medications Home Medications: Ambulatory Orders Medication Instructions Recorded Confirmed Rivaroxaban [Xarelto] 20 mg PO QPM 02/20/22 02/24/22 Albuterol Sulfate [Proair 90 mcg IH QID PRN #1 each 03/02/22 Respiclick] Amiodarone [Pacerone] 200 mg PO DAILY #30 tab 03/02/22 Metoprolol Succinate [Toprol Xl] 50 mg PO QPM #30 tablet 03/02/22 Metoprolol Succinate [Toprol Xl] 100 mg PO DAILY #30 tablet 03/02/22 Omeprazole Magnesium 20 mg PO DAILY PRN #30 tab 03/02/22 Thiamine [Vitamin B-1] 100 mg PO DAILY #30 tab 03/02/22 diltiaZEM CD [Cardizem Cd] 240 mg PO 1200 #30 cap 03/02/22 - Allergies Allergies/Adverse Reactions: Allergies Allergy/AdvReac Type Severity Reaction Status Date / Time losartan Allergy Hives Verified 02/20/22 12:21 Review of Systems - Other Findings Other Findings: 10 pt ros as above otherwise unremarkable Exam - Vital Signs Reviewed Vital Signs: Yes Vital Signs: Vital Signs x48h Temp Pulse Pulse Resp BP BP Pulse Ox 05/10/22 16:00 36.5 C 66 22 143/96 H 98 05/10/22 15:45 36.5 C 66 22 143/96 H 98 05/10/22 15:29 37.1 C 60 20 131/74 H 98 05/10/22 15:20 36.8 C 60 22 131/74 H 99 05/10/22 14:51 36.8 C 60 15 130/70 100 05/10/22 14:00 36.5 C 62 18 152/85 H 97 05/10/22 13:22 36.8 C 05/10/22 12:44 98.3 C H 65 18 150/82 H 98 05/10/22 12:37 36.8 C 65 18 143/80 H 98 05/10/22 12:32 36.8 C 63 16 157/79 H 100 05/10/22 12:24 36.8 C 63 16 100 05/10/22 11:30 60 23 137/93 H 100 05/10/22 09:25 36.6 C 67 23 139/65 H 100 - Physical Exam General Appearance: positive: No acute distress, Alert Eyes Bilateral: positive: PERRL, EOMI, No scleral icterus ENT: positive: No signs of dehydration Neck: positive: No JVD, Trachea midline Respiratory: positive: No respiratory distress Cardiovascular: positive: Regular rate & rhythm Abdomen: positive: Non-tender, No distention Neurologic/Psychiatric: positive: Oriented x3 Conclusion/Plan - Problem List (1) Symptomatic anemia Conclusion/Plan: waxing and waning anemia for many months. benign abdomen not a candidate for prodecures at [facility]. agree with ED care plan [facility] gi referral - Lab Results Fish Bones: 05/10/22 09:40 05/10/22 09:40
[2022-05-10 19:20] LABS: BASOPHILS # (AUTO) 0.1 10^3/uL (0.0-0.1); BASOPHILS % (AUTO) 0.6 %; EOSINOPHILS # (AUTO) 0.1 10^3/uL (0.0-0.7); EOSINOPHILS % (AUTO) 0.6 %; HGB - HEMOGLOBIN 7.4 g/dL (14.0-18.0); LYMPHOCYTES # (AUTO) 1.8 10^3/uL (1.5-3.5); MEAN CORPUSCULAR HEMOGLOBIN 24.9 pg (27.0-31.0); MEAN CORPUSCULAR HGB CONC 28.5 g/dL (32.0-36.0); MEAN CORPUSCULAR VOLUME 87.5 fL (80.0-94.0); MEAN PLATELET VOLUME 9.6 fL (7.4-11.4); MONOCYTES % (AUTO) 7.5 %; NEUTROPHILS # (AUTO) 10.6 10^3/uL (1.5-6.6); NEUTROPHILS % (AUTO) 77.8 %; NRBC ABSOLUTE COUNT (AUTO) 0.07 x10^3/uL; NUCLEATED RED BLOOD CELLS AUTO 0.5 /100WBC; PLT - PLATELET COUNT 354 10^3/uL (130-450); RED BLOOD COUNT 2.97 10^6/uL (4.70-6.10); RED CELL DISTRIBUTION WIDTH 19.7 % (12.0-15.0); WHITE BLOOD COUNT 13.7 x10^3/uL (4.8-10.8)
--- NOTE | 2022-05-10 20:01 | ED Physician Documentation ---
ED Addendum - Addendum Addendum: 05/10/22 20:01 57-year-old gentleman signed out to me by Dr. Ardon at 7 PM shift change. Briefly he has a history of anemia and GI bleeding. Because of respiratory failure with recent light sedation he is not a candidate for endoscopies here. He received 2 units of blood with appropriate response and no ongoing evidence of bleeding in the emergency department and feels well enough to go home. He request discharge. He understands the need for close follow-up. Disposition: Discharged home Condition: Stable Diagnosis: 1. GI bleed with symptomatic anemia
[2022-05-10 20:06] VITALS: BP 161/86
[2022-05-10 20:22] LABS: PLATELET ESTIMATE, MANUAL NORMAL (130-450,000) (NORMAL); PLATELET MORPHOLOGY NORMAL APPEARANCE (NORMAL); SLIDE REVIEW? Indicated; WBC MORPHOLOGY (MULTIPLE) NORMAL APPEARANCE (NORMAL)
== END 2022-05-10 20:11 | disposition home or self-care (01) ==
LOC: ED 09:18
DX: K92.2 Gastrointestinal hemorrhage, unspecified (principal); D64.9 Anemia, unspecified; F17.200 Nicotine dependence, unspecified, uncomplicated; Z20.822 Contact with and (suspected) exposure to COVID-19; Z66 Do not resuscitate
CPT/HCPCS: 36415; 36430; 71045; 80053; 83690; 85025; 86850; 86900; 86901; 86920; 87633; 93005; 96374; 99284; 99285; P9016

== ENCOUNTER 2022-05-16 09:21 | Emergency (ER) | payer MEDICAID ==
[2022-05-16 10:07] LABS: BASOPHILS # (AUTO) 0.1 10^3/uL (0.0-0.1); BASOPHILS % (AUTO) 1.1 %; EOSINOPHILS # (AUTO) 0.2 10^3/uL (0.0-0.7); EOSINOPHILS % (AUTO) 1.8 %; HCT - HEMATOCRIT 27.2 % (42.0-52.0); HGB - HEMOGLOBIN 7.4 g/dL (14.0-18.0); LYMPHOCYTES # (AUTO) 1.7 10^3/uL (1.5-3.5); LYMPHOCYTES % (AUTO) 16.1 %; MEAN CORPUSCULAR HEMOGLOBIN 24.5 pg (27.0-31.0); MEAN CORPUSCULAR HGB CONC 27.2 g/dL (32.0-36.0); MEAN CORPUSCULAR VOLUME 90.1 fL (80.0-94.0); MEAN PLATELET VOLUME 9.8 fL (7.4-11.4); MONOCYTES # (AUTO) 1.1 10^3/uL (0.0-1.0); MONOCYTES % (AUTO) 10.6 %; NEUTROPHILS # (AUTO) 7.4 10^3/uL (1.5-6.6); NEUTROPHILS % (AUTO) 69.7 %; NRBC ABSOLUTE COUNT (AUTO) 0.07 x10^3/uL; NUCLEATED RED BLOOD CELLS AUTO 0.7 /100WBC; PLT - PLATELET COUNT 375 10^3/uL (130-450); RED BLOOD COUNT 3.02 10^6/uL (4.70-6.10); RED CELL DISTRIBUTION WIDTH 18.4 % (12.0-15.0); WHITE BLOOD COUNT 10.6 x10^3/uL (4.8-10.8)
[2022-05-16 10:13] LABS: ALBUMIN 3.8 g/dL (3.2-5.5); BILIRUBIN,TOTAL 0.7 mg/dL (0.2-1.0); CALCIUM 8.5 mg/dL (8.5-10.3); CREATININE 1.4 mg/dL (0.6-1.2); POTASSIUM 4.5 mmol/L (3.5-5.0); TOTAL PROTEIN 7.6 g/dL (6.7-8.2)
[2022-05-16 12:38] VITALS: BP 134/85
[2022-05-16 12:55] LABS: INR 2.1 (0.8-1.2); PT - PROTHROMBIN TIME 22.3 secs (9.9-12.6)
[2022-05-16 13:02] LABS: PARTIAL THROMBOPLASTIN TIME 41.1 secs (24.9-33.3)
[2022-05-16] MEDS ORDERED: PANTOPRAZOLE 40 MG TABLET PO STA (14:59)
--- NOTE | 2022-05-16 15:02 | ED Physician Documentation ---
PD HPI ABD PAIN - Stated complaint Stated Complaint: BLOOD IN STOOL - Chief complaint Chief Complaint: Abd Pain - History obtained from History obtained from: Patient - History of Present Illness Timing - onset: How many weeks ago (ongoing for several weeks) Timing - duration: Weeks Timing - details: Gradual onset Pain level max: 0 Pain level now: 0 Associated symptoms: No: Nausea, Vomiting, Hematemesis, Diarrhea, Constipation, Dysuria, Hematuria, Chest pain - Additional information Additional information: Patient is a 57-year-old male who presents to the emergency department stating he has had occasional blood in the stool for several weeks. 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 He was seen here recently and given a blood transfusion. General surgery, Dr. Ackerman did not feel that the patient was a candidate for endoscopy here. The patient does not have any chest pain, shortness of breath or other symptoms at this time. No vomiting. No diarrhea. He is still taking his Xarelto for his atrial fibrillation. Review of Systems Constitutional: denies: Fever, Chills GI: denies: Vomiting Skin: denies: Rash Musculoskeletal: denies: Neck pain, Back pain Neurologic: denies: Headache PD PAST MEDICAL HISTORY - Past Medical History Cardiovascular: Hypertension, High cholesterol, Atrial fibrillation Respiratory: Sleep apnea Neuro: None Endocrine/Autoimmune: None GI: None, Other : None HEENT: None Psych: None Musculoskeletal: None Derm: None - Past Surgical History Past Surgical History: No General: Gastric surgery, EGD - Present Medications Home Medications: Ambulatory Orders Medication Instructions Recorded Confirmed Rivaroxaban [Xarelto] 20 mg PO QPM 02/20/22 02/24/22 Albuterol Sulfate [Proair 90 mcg IH QID PRN #1 each 03/02/22 Respiclick] Amiodarone [Pacerone] 200 mg PO DAILY #30 tab 03/02/22 Metoprolol Succinate [Toprol Xl] 50 mg PO QPM #30 tablet 03/02/22 Metoprolol Succinate [Toprol Xl] 100 mg PO DAILY #30 tablet 03/02/22 Omeprazole Magnesium 20 mg PO DAILY PRN #30 tab 03/02/22 Thiamine [Vitamin B-1] 100 mg PO DAILY #30 tab 03/02/22 diltiaZEM CD [Cardizem Cd] 240 mg PO 1200 #30 cap 03/02/22 Esomeprazole Magnesium [Nexium] 40 mg PO DAILY #30 cap 05/16/22 - Allergies Allergies/Adverse Reactions: Allergies Allergy/AdvReac Type Severity Reaction Status Date / Time losartan Allergy Hives Verified 05/16/22 09:35 - Social History Does the pt smoke?: Yes Smoking Status: Current every day smoker Does the pt drink ETOH?: Yes Does the pt have substance abuse?: No - Immunizations Immunizations are current?: Yes - POLST Patient has POLST: Yes POLST Status: DNR PD ED PE NORMAL - Vitals Vital signs reviewed: Yes - General General: Alert and oriented X 3, No acute distress - HEENT HEENT: PERRL, Moist mucous membranes - Neck Neck: Supple, no meningeal sign - Cardiac Cardiac: RRR, Strong equal pulses - Respiratory Respiratory: No respiratory distress, Clear bilaterally - Abdomen Abdomen: Soft, Non tender, Non distended - Rectal Rectal: Pt declined - Derm Derm: Warm and dry - Extremities Extremities: No edema - Neuro Neuro: Alert and oriented X 3 - Psych Psych: Normal mood, Normal affect Results - Vitals Vitals: Vital Signs - 24 hr 05/16/22 05/16/22 09:30 12:36 Temperature 37.2 C 36.8 C Heart Rate 81 70 Respiratory 20 24 Rate Blood Pressure 173/75 H 134/85 H O2 Saturation 97 98 Oxygen O2 Source Room air - Labs Labs: Laboratory Tests 05/16/22 05/16/22 05/16/22 09:54 09:54 09:54 WBC 10.6 RBC 3.02 L Hgb 7.4 L Hct 27.2 L MCV 90.1 MCH 24.5 L MCHC 27.2 L RDW 18.4 H Plt Count 375 MPV 9.8 Neut # (Auto) 7.4 H Lymph # (Auto) 1.7 [place] # (Auto) 1.1 H Eos # (Auto) 0.2 Baso # (Auto) 0.1 Absolute Nucleated RBC 0.07 Nucleated RBC % 0.7 PT 22.3 H INR 2.1 H APTT 41.1 H Sodium 139 Potassium 4.5 Chloride 104 Carbon Dioxide 24 Anion Gap 11.0 BUN 10 Creatinine 1.4 H Estimated GFR (MDRD) 63 L Glucose 123 H Calcium 8.5 Total Bilirubin 0.7 AST 21 ALT 22 Alkaline Phosphatase 136 H Total Protein 7.6 Albumin 3.8 Globulin 3.8 Albumin/Globulin Ratio 1.0 Lipase 38 Blood Type Antibody Screen 05/16/22 12:50 WBC RBC Hgb Hct MCV MCH MCHC RDW Plt Count MPV Neut # (Auto) Lymph # (Auto) [place] # (Auto) Eos # (Auto) Baso # (Auto) Absolute Nucleated RBC Nucleated RBC % PT INR APTT Sodium Potassium Chloride Carbon Dioxide Anion Gap BUN Creatinine Estimated GFR (MDRD) Glucose Calcium Total Bilirubin AST ALT Alkaline Phosphatase Total Protein Albumin Globulin Albumin/Globulin Ratio Lipase Blood Type O POSITIVE Antibody Screen NEGATIVE PD Medical Decision Making - ED course Complexity details: reviewed old records, reviewed results, re-evaluated patient, considered differential, d/w patient, d/w medical social consultant ED course: There has been no change in the patient's hemoglobin and hematocrit from his prior visit. His hemoglobin today is 7.4, on 1227 it was 7.4 as well. His chemistries do not reveal any significant abnormalities at this time. As the patient continues to have intermittent bleeding, we will stop his Xarelto at this time. We will have him follow-up with his doctor this week for further care. We will also place him on a PPI for home. Patient is currently asymptomatic. No indication for emergent transfusion. I did call his primary care provider's office and informed them of the need for follow-up as well as a referral to [facility] GI. This was discussed at his previous visit with the patient. I discussed again with him today. Patient did not wish to see Dr. 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 Patient counseled regarding signs and symptoms for which I believe and urgent re-evaluation would be necessary. Patient with good understanding of and agreement to plan and is comfortable going home at this time This document was made in part using voice recognition software. While efforts are made to proofread this document, sound alike and grammatical errors may occur. Departure - Departure Disposition: Home, Self Care Clinical Impression: GI bleed Qualifiers: GI bleed type/associated pathology: unspecified gastrointestinal hemorrhage type Qualified Code(s): K92.2 - Gastrointestinal hemorrhage, unspecified Condition: Good Instructions: ED Hematochezia Stable, ED Bleed UGI Stable Follow-Up: Concepcion Enriquez PA [Primary Care Provider] - Within 3 Days Prescriptions: Esomeprazole Magnesium [Nexium] 40 mg PO DAILY #30 cap Comments: Your blood counts are stable from the last time you were here in the emergency department. We will have you stop the Xarelto until your bleeding has been evaluated by GI. General surgery has recommended that you follow-up with [facility] GI. HOLDEN Enriquez can place this referral for you. I spoke with the PA covering for her today and they will place the referral. We will also start you on medication to help prevent further bleeding if the bleeding is coming from your stomach. Return if you worsen. Your prescription was sent to [facility] in [place]. Discharge Date/Time: 05/16/22 15:14
== END 2022-05-16 15:14 | disposition home or self-care (01) ==
LOC: ED 09:21
DX: K92.2 Gastrointestinal hemorrhage, unspecified (principal); I10 Essential (primary) hypertension; I48.91 Unspecified atrial fibrillation; Z79.01 Long term (current) use of anticoagulants; F17.200 Nicotine dependence, unspecified, uncomplicated
CPT/HCPCS: 36415; 80053; 83690; 85025; 85610; 85730; 86850; 86900; 86901; 99283; 99284; A9270

== ENCOUNTER 2022-06-19 10:58 | Outpatient (CLI) | payer MEDICAID ==
[2022-06-19 11:12] LABS: BASOPHILS # (AUTO) 0.1 10^3/uL (0.0-0.1); EOSINOPHILS # (AUTO) 0.1 10^3/uL (0.0-0.7); EOSINOPHILS % (AUTO) 1.4 %; HCT - HEMATOCRIT 43.7 % (42.0-52.0); LYMPHOCYTES # (AUTO) 1.8 10^3/uL (1.5-3.5); LYMPHOCYTES % (AUTO) 19.5 %; MEAN CORPUSCULAR HEMOGLOBIN 23.9 pg (27.0-31.0); MEAN CORPUSCULAR HGB CONC 27.5 g/dL (32.0-36.0); MEAN CORPUSCULAR VOLUME 86.9 fL (80.0-94.0); MEAN PLATELET VOLUME 9.7 fL (7.4-11.4); MONOCYTES # (AUTO) 0.9 10^3/uL (0.0-1.0); MONOCYTES % (AUTO) 9.4 %; NEUTROPHILS # (AUTO) 6.3 10^3/uL (1.5-6.6); NEUTROPHILS % (AUTO) 68.4 %; PLT - PLATELET COUNT 321 10^3/uL (130-450); RED BLOOD COUNT 5.03 10^6/uL (4.70-6.10); RED CELL DISTRIBUTION WIDTH 17.1 % (12.0-15.0); WHITE BLOOD COUNT 9.2 x10^3/uL (4.8-10.8)
[2022-06-19 11:31] LABS: ALBUMIN 4.2 g/dL (3.2-5.5); ALKALINE PHOSPHATASE 146 IU/L (42-121); ALT ALANINE AMINOTRANSFERASE 35 IU/L (10-60); AST ASPARTATE AMINOTRANSFERASE 26 IU/L (10-42); BILIRUBIN,TOTAL 0.4 mg/dL (0.2-1.0); BUN - BLOOD UREA NITROGEN 16 mg/dL (6-20); CALCIUM 9.5 mg/dL (8.5-10.3); CARBON DIOXIDE - CO2 27 mmol/L (21-32); CHLORIDE 102 mmol/L (101-111); CHOL/HDL RATIO 4.7 (<5.0); CHOLESTEROL 226 mg/dL; CREATININE 1.4 mg/dL (0.6-1.2); GFR - MDRD 63 (>89); GLUCOSE 145 mg/dL (70-100); HDL CHOLESTEROL 48 mg/dL; LDL CHOLESTEROL,CALCULATED 147 mg/dL; LDL/HDL RATIO 3.1 (<3.6); POTASSIUM 4.9 mmol/L (3.5-5.0); SODIUM 140 mmol/L (135-145); TOTAL PROTEIN 8.5 g/dL (6.7-8.2); TRIGLYCERIDES 157 mg/dL; VLDL CHOLESTEROL 31 mg/dL
[2022-06-19 12:10] LABS: ESTIMATED AVERAGE GLUCOSE 114 mg/dL (70-100); HEMOGLOBIN A1c% 5.6 % (4.27-6.07)
== END 2022-06-19 10:59 | disposition home or self-care (01) ==
LOC: LAB 10:58
PROVIDERS: ATTEND Physician Assistant
DX: E11.9 Type 2 diabetes mellitus without complications (principal); E78.1 Pure hyperglyceridemia; D64.9 Anemia, unspecified
CPT/HCPCS: 36415; 80053; 80061; 83036; 83721; 85025

== ENCOUNTER 2022-08-08 11:28 | Outpatient (CLI) | payer MEDICAID ==
--- NOTE | 2022-08-18 17:08 | Ultrasound Report ---
PROCEDURE: Ankle Brachial Index INDICATIONS: BILATERAL CLAUDICATION TECHNIQUE: Ankle-brachial indices were obtained bilaterally and recorded. COMPARISONS: None. FINDINGS: Right ankle brachial index (LIZY): 1.08 Left ankle brachial index (LIZY): 1.07 Healing potential: Ankle pressures >55 mm Hg in non-diabetics and >80 mm Hg in diabetics are likely to achieve primary h ealing of ischemic foot ulcers. Toe pressures >30 mm Hg are likely to achieve primary healing of ischemic foot ulcers, toe or transme tatarsal amputations. IMPRESSION: Normal bilateral ankle brachial indices. Reviewed by: Timbo Valentine MD on 08/18/2022 5:07 PM PDT Approved by: Timbo Valentine MD on 08/18/2022 5:07 PM PDT Station ID: [id number]
== END 2022-08-08 11:29 | disposition home or self-care (01) ==
LOC: DI 11:28
PROVIDERS: ATTEND Physician Assistant
DX: I73.9 Peripheral vascular disease, unspecified (principal)
CPT/HCPCS: 93922

== ENCOUNTER 2022-08-28 10:36 | Outpatient (CLI) | payer MEDICAID ==
--- NOTE | 2022-08-28 13:04 | XRAY Report ---
PROCEDURE: Chest 2 View X-Ray INDICATIONS: SHORTNESS OF BREATH TECHNIQUE: 2 views of the chest were acquired. COMPARISON: Chest radiographs 05/02/2022, 02/25/2022. FINDINGS: Surgical changes and devices: None. Lungs and pleura: Patchy opacity present at the right lung base. No pleural effusion or pneumothorax . Mediastinum: Cardiac silhouette is enlarged as before. Pulmonary vasculature appears prominent. Bones and chest wall: No suspicious bony lesions. Overlying soft tissues appear unremarkable. IMPRESSION: Nonspecific opacity present at the right lung base, could represent edema, atelectasis, aspiration, o r pneumonia. Cardiac silhouette is enlarged as before with suggestion of pulmonary vascular congestion. Reviewed by: Jaquan Figueroa MD on 08/28/2022 1:02 PM PDT Approved by: Jaquan Figueroa MD on 08/28/2022 1:02 PM PDT Station ID: [id number]
--- NOTE | 2022-08-28 15:35 | XRAY Report ---
PROCEDURE: Hips 2V BILAT INDICATIONS: THIGH PAIN TECHNIQUE: Frontal view of the pelvis, lateral view of both hips. COMPARISON: CT abdomen pelvis 04/28/2022 FINDINGS: Bones: No acute fracture or dislocation identified. Mild-moderate bilateral hip joint space narrowin g. Soft tissues: No suspicious soft tissue calcifications. IMPRESSION: No definite acute fracture identified. Degenerative changes of both hips are present. If symptoms per sist, follow-up radiographs and/or CT or MRI may be helpful for further evaluation. Reviewed by: Jaquan Figueroa MD on 08/28/2022 3:33 PM PDT Approved by: Jaquan Figueroa MD on 08/28/2022 3:33 PM PDT Station ID: [id number]
== END 2022-08-28 10:37 | disposition home or self-care (01) ==
LOC: DI 10:36
PROVIDERS: ATTEND Physician Assistant
DX: R91.8 Other nonspecific abnormal finding of lung field (principal); M16.0 Bilateral primary osteoarthritis of hip

== ENCOUNTER 2022-09-07 08:28 | Outpatient (CLI) | payer MEDICAID ==
[2022-09-07] MEDS ORDERED: iohexoL-300 100 ML VIAL ONE (08:39)
[2022-09-07 09:12] LABS: CREATININE 1.5 mg/dL (0.6-1.2)
[2022-09-07] MEDS ORDERED: iohexoL-300 100 ML VIAL IVP ONE (10:23)
--- NOTE | 2022-09-07 11:08 | CT Report ---
PROCEDURE: CHEST W INDICATIONS: ABN CHEST XR CONTRAST: 100ml Omnipaque 300 TECHNIQUE: After the administration of intravenous contrast, 1 mm axial images were acquired from the pulmonary apices through the posterior costophrenic angles. Axial 5 mm soft tissue kernel reconstructions were performed as well as 8 mm axial MIP and coronal and sagittal 5 mm reformations. For radiation dose reduction, the following was used: automated exposure control, adjustment of mA and/or kV according to patient size. COMPARISON: X-ray 08/28/2022, CT 11/01/2021, 02/24/2022. FINDINGS: Image quality: Excellent. Lungs and pleura: No pleural effusions. No pneumothorax. No suspicious pulmonary nodules which requi re follow up. Mild centrilobular emphysema. Pleural parenchymal band within the right lung base and b ibasilar atelectasis. Mediastinum: Heart size is enlarged. No pericardial effusions. No mediastinal adenopathy by size crit eria. No large vessel abnormality. Marked LAD calcifications for age. Chest wall and lower neck: Thyroid is unremarkable. No axillary or supraclavicular adenopathy by size . Bones: No aggressive osseous abnormality. Upper Abdomen: Stable 2.2 cm left adrenal nodule; Hounsfield units on prior exam where consistent wit h a benign adrenal adenoma (-6 HU on 02/24/2022). IMPRESSION: No findings in the right lung base to explain the patient's chest x-ray findings. Findings on the [facility] chest x-ray were probably atelectasis. Marked coronary artery calcifications for age. Consider cardiology referral. Reviewed by: Ishmael Choudhury on 09/07/2022 11:07 AM PDT Approved by: Ishmael Choudhury on 09/07/2022 11:07 AM PDT Station ID: [id number]
== END 2022-09-07 08:29 | disposition home or self-care (01) ==
LOC: LAB 08:28
PROVIDERS: ATTEND Family Medicine
DX: R06.09 Other forms of dyspnea (principal); R91.8 Other nonspecific abnormal finding of lung field; Z72.0 Tobacco use; I25.10 Atherosclerotic heart disease of native coronary artery without angina pectoris
CPT/HCPCS: 36415; 71260; 82565; Q9967

== ENCOUNTER 2022-09-20 07:53 | Outpatient (CLI) | payer MEDICAID | END 2022-09-20 07:54 | disposition home or self-care (01) | LOC: RT 07:53 | PROVIDERS: ATTEND Physician Assistant | DX: R06.02 Shortness of breath (principal); Z72.0 Tobacco use | CPT/HCPCS: 94060; 94729 ==

== ENCOUNTER 2022-11-20 09:30 | Outpatient (CLI) | payer MEDICAID ==
[2022-11-20 09:58] LABS: BASOPHILS # (AUTO) 0.1 10^3/uL (0.0-0.1); BASOPHILS % (AUTO) 1.2 %; EOSINOPHILS # (AUTO) 0.1 10^3/uL (0.0-0.7); EOSINOPHILS % (AUTO) 1.4 %; HCT - HEMATOCRIT 47.3 % (42.0-52.0); HGB - HEMOGLOBIN 14.6 g/dL (14.0-18.0); LYMPHOCYTES # (AUTO) 1.6 10^3/uL (1.5-3.5); LYMPHOCYTES % (AUTO) 20.6 %; MEAN CORPUSCULAR HEMOGLOBIN 27.6 pg (27.0-31.0); MEAN CORPUSCULAR HGB CONC 30.9 g/dL (32.0-36.0); MEAN CORPUSCULAR VOLUME 89.4 fL (80.0-94.0); MEAN PLATELET VOLUME 9.4 fL (7.4-11.4); MONOCYTES # (AUTO) 0.8 10^3/uL (0.0-1.0); NEUTROPHILS # (AUTO) 5.1 10^3/uL (1.5-6.6); NEUTROPHILS % (AUTO) 66.3 %; PLT - PLATELET COUNT 376 10^3/uL (130-450); RED BLOOD COUNT 5.29 10^6/uL (4.70-6.10); RED CELL DISTRIBUTION WIDTH 15.5 % (12.0-15.0); WHITE BLOOD COUNT 7.7 x10^3/uL (4.8-10.8)
[2022-11-20 10:26] LABS: THYROID STIMULATING HORMONE 0.95 uIU/mL (0.34-5.60)
[2022-11-20 12:21] LABS: ESTIMATED AVERAGE GLUCOSE 151 mg/dL (70-100); HEMOGLOBIN A1c% 6.9 % (4.27-6.07)
[2022-11-20 14:31] LABS: ALKALINE PHOSPHATASE 169 IU/L (42-121); ALT ALANINE AMINOTRANSFERASE 54 IU/L (10-60); AST ASPARTATE AMINOTRANSFERASE 28 IU/L (10-42); BILIRUBIN,TOTAL 0.4 mg/dL (0.2-1.0); BUN - BLOOD UREA NITROGEN 17 mg/dL (6-20); CARBON DIOXIDE - CO2 26 mmol/L (21-32); CHLORIDE 105 mmol/L (101-111); CHOL/HDL RATIO 5.5 (<5.0); CHOLESTEROL 242 mg/dL; CREATININE 1.6 mg/dL (0.6-1.2); GFR - MDRD 54 (>89); GLUCOSE 177 mg/dL (70-100); HDL CHOLESTEROL 44 mg/dL; LDL CHOLESTEROL,CALCULATED 170 mg/dL; LDL/HDL RATIO 3.9 (<3.6); POTASSIUM 4.4 mmol/L (3.5-5.0); SODIUM 138 mmol/L (135-145); TOTAL PROTEIN 8.1 g/dL (6.7-8.2); TRIGLYCERIDES 141 mg/dL; VLDL CHOLESTEROL 28 mg/dL
== END 2022-11-20 09:31 | disposition home or self-care (01) ==
LOC: LAB 09:30
PROVIDERS: ATTEND Physician Assistant
DX: E11.9 Type 2 diabetes mellitus without complications (principal); E78.5 Hyperlipidemia, unspecified; Z12.5 Encounter for screening for malignant neoplasm of prostate
CPT/HCPCS: 36415; 80053; 80061; 83036; 83721; 84153; 84443; 85025

== ENCOUNTER 2023-03-09 10:27 | Outpatient (CLI) | payer MEDICAID ==
[2023-03-09 10:52] LABS: CALCIUM 9.2 mg/dL (8.5-10.3); CREATININE 1.3 mg/dL (0.6-1.3); POTASSIUM 4.3 mmol/L (3.5-4.5)
[2023-03-09 11:04] LABS: MICROALBUM/CREATININE RATIO,UR 92.2 ug/mg (<30.0); MICROALBUMIN,URINE 20.1 mg/dL
[2023-03-09 12:25] LABS: ESTIMATED AVERAGE GLUCOSE 148 mg/dL (70-100); HEMOGLOBIN A1c% 6.8 % (4.27-6.07)
== END 2023-03-09 10:28 | disposition home or self-care (01) ==
LOC: LAB 10:27
PROVIDERS: ATTEND Physician Assistant
DX: E11.9 Type 2 diabetes mellitus without complications (principal)
CPT/HCPCS: 36415; 80048; 82043; 82570; 83036

== ENCOUNTER 2023-06-08 15:24 | Outpatient (CLI) | payer MEDICAID ==
--- NOTE | 2023-06-08 16:45 | Sleep Patient Instructions ---
Sleep Center Visit Summary - Patient Visit Information Reason for Visit: Initial consult for evaluation of sleep disordered breathing and other sleep issues. - Patient Instructions Instructions Attached: Sleep Study Home Monitor, Sleep Study Additional Instructions: You will be completing a sleep study, either an in-lab polysomnography (PSG) or home sleep study (HST). You will follow-up in the sleep care office after the sleep study is completed to hear the results and talk about therapy, if needed. You will be called by our office staff to schedule this appointment, but you may contact us with any questions. - Clinic Information Contact: formerly [facility] [address] [place] [id number] [email or web address] T: [phone]
--- NOTE | 2023-06-08 16:53 | SLEEP CARE CONSULTATION ---
Information from patient questionnaire entered by Nella Shafer. I have reviewed and concur with the information entered by Nella Shafer. This document represents the service I personally performed and the decisions made by me, Kelsey Galicia ARNP. History of Present Illness Service Date and Time: 06/08/2023 1524 Reason for Visit: New patient Chief Complaint: reports: Snoring, Frequent awakenings at night Date of Onset: DON'T KNOW Usual bedtime: OPEN Time it takes to fall asleep: IT VARIES Snores at night: Yes Observed to quit breathing while asleep: No (lives alone for last 6 yrs) Number of times waking at night: 1 Reasons for waking at night: reports: Snoring, Bathroom, Other (drools enough sometimes to cause a cough when on his back). denies: Choking, Gasping for air Toss, Turn, or Twitch while sleeping: No Recalls having dreams: Yes Usually gets out of bed at: varies Feels refreshed in the morning: Yes Morning headache: No Sleepy or fatigued during the day: Yes Ever fallen asleep while driving: No Takes day naps: Yes (depends of what he needs to do) Dreams during day naps: Yes Prior sleep studies: No Additional HPI information: I had the pleasure of seeing ILIANA CORREA today regarding the possibility of him having a sleep disorder. His current complaints are snoring and frequent night awakenings. He says his doctor's coworker recommended he have a sleep evaluation. He was following with cardiology and wearing a monitor that showed that he stopped breathing at night. He says he has woke himself up snoring. He says he will wake up hungry because he dreams of food. He knows that he talks in his sleep. He says when he was in the hospital for a colonoscopy and they noted some atrial fibrillation after his lung collapsed before the colonoscopy was completed. - Parasomnia Symptoms Ever been unable to move upon waking from sleep: No Walks in sleep: No Talks in sleep: Yes Ever acted out dreams in sleep: Yes Ever felt weak in the knees when startled or emotional: No Bothered by creepy, crawly, restless sensations in legs: No Problems with memory or concentration: No Subjective Initial [place]assell Sleepiness Scale score: 6 (06/08/23) Past Medical History Past Medical History: reports: Hypertension, Diabetes, Other (COPD) Social History The patient's occupation is a [employer]. Patient is and lives in [place]. Have you smoked in the past 12 months: Yes (trying to stop) Cigarettes per day (20/pack): 10 Years of smokin Smoking Pack Years: 10.0 Alcohol use: Yes Alcohol amount and frequency: UNKNOWN at [employer] Caffeine use: No Family History Family history of sleep disordered breathing: No Allergies and Home Medications Known drug allergies: Yes (losartan) Drug allergies reviewed: Yes Home medication list reviewed: Yes (cholesterol pill, not sure of name) Allergy and home medication list: Allergies losartan Allergy (Verified 06/08/23 08:20) Hives Home Medications Medication Instructions Recorded Confirmed Last Taken Type Metoprolol Succinate [Toprol Xl] 100 mg PO DAILY #30 tablet 03/02/22 06/08/23 Unknown Rx diltiaZEM CD [Cardizem Cd] 240 mg PO 1200 #30 cap 03/02/22 06/08/23 Unknown Rx Esomeprazole Magnesium [Nexium] 40 mg PO DAILY #30 cap 05/16/22 06/08/23 Unknown Rx Benazepril HCl See Rx Instructions .ROUTE .COMPLEX 06/08/23 06/08/23 Unknown History Ferrous Sulfate [Feosol] See Rx Instructions .ROUTE .COMPLEX 06/08/23 06/08/23 Unknown History Salmeterol Xinafoate [Serevent See Rx Instructions .ROUTE .COMPLEX 06/08/23 06/08/23 Unknown History Diskus] metFORMIN [Glucophage] See Rx Instructions .ROUTE .COMPLEX 06/08/23 06/08/23 Unknown History Review of Systems Weight gain over past 5 years: 125 Cardiovascular: reports: high blood pressure, irregular heart rate or pulse Respiratory: reports: shortness of breath Gastrointestinal: reports: heartburn Ear/Nose/Throat: reports: nasal congestion, sinus problems. denies: tonsillectomy Musculoskeletal: reports: neck pain Immunologic: reports: sneezing Physical Exam Vital signs obtained and entered by: NELLA Anderson MA Blood Pressure: 182/100 (LEFT ARM) Cuff size: long Heart Rate: 64 O2 Saturation: 95 Height: 5 ft 9 in Weight: 253 lb 3.2 oz Body Mass Index: 37.3 BMI Classification: Obese Neck circumference: 17 Mouth and throat: narrow oropharynx Soft palate: long Hard palate: normal Uvula: normal Uvula visualization: 0% Mallampati Class IV Tongue: normal in size Tonsils: 1+ Neck: normal w/o lymphadenopathy or thyromegaly Heart: regular rate and rhythm Lungs: clear bilaterally Impression and Plan 1. Suspected Obstructive Sleep Apnea-Hypopnea Syndrome, as suggested by a his tory of loud and irregular snoring and frequent awakening during the night. He has hypertension and diabetes. Narrow oropharynx and obesity are common predisposing factors for obstructive sleep apnea-hypopnea syndrome. I recommend proceeding to polysomnography to confirm the diagnosis and to assess severity. If the patient has significant sleep disordered breathing, a manual CPAP titration study will also be performed to find the optimal treatment pressure. I informed the patient of what the sleep studies involve and after some discussion, obtained agreement to proceed. The pathophysiology of obstructive sleep apnea-hypopnea syndrome was discussed with the patient and health risks of cardiovascular and cerebrovascular disease if not treated. Risks of drowsy driving discussed in detail and patient advised to avoid long distance driving and to cake puller at the first sign of drowsiness. Patient agreed to plan. 2. Elevated blood pressure in patient with hypertension. His initial blood p ressure was 182/100. A recheck of his blood pressure was 176/100. He is taking his blood pressure medications as ordered. He denies any chest pain, shortness of breath, headaches or dizziness. I advised him to followup with his primary doctor if his blood pressure stays high when he takes it at home. He voiced understanding. * Schedule polysomnography. * Avoid long distance driving or driving when feeling sleepy. * Avoid alcohol, sedative and muscle relaxant around bedtime. * Attempt to lose weight. * Review instructions provided by trained office staff on how to prepare for the sleep study. * Return for follow-up after sleep study completed. Counseling Topics: Weight loss health impact Plan: PSG/HST Visit Type: In Office Time Spent with Patient (minutes): 32 Provider Statement: I spent 100% of the Face to Face Visit with the patient with greater than 50% spent counseling the patient and coordination of care.
[2023-06-08 17:03] VITALS: BP 182/100; O2SAT 95
== END 2023-06-08 15:25 | disposition home or self-care (01) ==
LOC: SC 15:24
PROVIDERS: ATTEND Nurse Practitioner Family
DX: G47.8 Other sleep disorders (principal); R06.83 Snoring; I10 Essential (primary) hypertension; E11.9 Type 2 diabetes mellitus without complications; E66.9 Obesity, unspecified; Z68.37 Body mass index [BMI] 37.0-37.9, adult; F17.210 Nicotine dependence, cigarettes, uncomplicated
CPT/HCPCS: 99203; 99212

== ENCOUNTER 2023-07-05 08:37 | Outpatient (CLI) | payer MEDICAID | END 2023-07-05 08:38 | disposition home or self-care (01) | LOC: SC 08:37 | PROVIDERS: ATTEND Nurse Practitioner Family | DX: G47.33 Obstructive sleep apnea (adult) (pediatric) (principal); R09.02 Hypoxemia; E66.9 Obesity, unspecified; Z68.37 Body mass index [BMI] 37.0-37.9, adult | CPT/HCPCS: 95806 ==

== ENCOUNTER 2023-09-18 09:27 | Outpatient (CLI) | payer MEDICAID ==
[2023-09-18 09:42] LABS: BASOPHILS # (AUTO) 0.1 10^3/uL (0.0-0.1); BASOPHILS % (AUTO) 0.8 %; EOSINOPHILS # (AUTO) 0.1 10^3/uL (0.0-0.7); EOSINOPHILS % (AUTO) 1.3 %; HCT - HEMATOCRIT 44.6 % (42.0-52.0); HGB - HEMOGLOBIN 13.7 g/dL (14.0-18.0); LYMPHOCYTES % (AUTO) 22.8 %; MEAN CORPUSCULAR HEMOGLOBIN 28.5 pg (27.0-31.0); MEAN CORPUSCULAR HGB CONC 30.7 g/dL (32.0-36.0); MEAN CORPUSCULAR VOLUME 92.9 fL (80.0-94.0); MEAN PLATELET VOLUME 9.2 fL (7.4-11.4); MONOCYTES # (AUTO) 0.7 10^3/uL (0.0-1.0); MONOCYTES % (AUTO) 7.7 %; NEUTROPHILS % (AUTO) 67.2 %; PLT - PLATELET COUNT 337 10^3/uL (130-450); RED CELL DISTRIBUTION WIDTH 13.6 % (12.0-15.0); WHITE BLOOD COUNT 8.9 x10^3/uL (4.8-10.8)
[2023-09-18 09:55] LABS: ALBUMIN 4.4 g/dL (3.2-5.5); ALBUMIN/GLOBULIN RATIO 1.3 (1.0-2.2); ALKALINE PHOSPHATASE 145 IU/L (42-121); ALT ALANINE AMINOTRANSFERASE 20 IU/L (10-60); AST ASPARTATE AMINOTRANSFERASE 16 IU/L (10-42); BILIRUBIN,TOTAL 0.4 mg/dL (0.2-1.0); BUN - BLOOD UREA NITROGEN 16 mg/dL (6-20); CALCIUM 9.8 mg/dL (8.5-10.3); CARBON DIOXIDE - CO2 28 mmol/L (21-32); CHLORIDE 102 mmol/L (101-111); CHOLESTEROL 190 mg/dL; GFR - MDRD 92 (>89); GLUCOSE 150 mg/dL (74-104); HDL CHOLESTEROL 38 mg/dL; LDL CHOLESTEROL,CALCULATED 112 mg/dL; LDL/HDL RATIO 2.9 (<3.6); POTASSIUM 3.9 mmol/L (3.5-4.5); SODIUM 138 mmol/L (135-145); TOTAL PROTEIN 7.7 g/dL (6.4-8.9); TRIGLYCERIDES 199 mg/dL (48-352); URIC ACID 5.3 mg/dL (4.4-7.6); VLDL CHOLESTEROL 40 mg/dL
[2023-09-18 09:56] LABS: CREATININE,URINE 248.2 mg/dL
[2023-09-18 10:06] LABS: MICROALBUM/CREATININE RATIO,UR 381.1 ug/mg (<30.0); MICROALBUMIN,URINE 94.6 mg/dL
[2023-09-18 10:09] LABS: THYROID STIMULATING HORMONE 0.65 uIU/mL (0.34-5.60)
[2023-09-18 10:16] LABS: ESTIMATED AVERAGE GLUCOSE 157 mg/dL (70-100); HEMOGLOBIN A1c% 7.1 % (4.27-6.07)
[2023-09-19 08:11] LABS: RPR Non Reactive (Non Reactive)
== END 2023-09-18 09:28 | disposition home or self-care (01) ==
LOC: LAB 09:27
PROVIDERS: ATTEND Physician Assistant
DX: E11.9 Type 2 diabetes mellitus without complications (principal); E78.5 Hyperlipidemia, unspecified; Z12.5 Encounter for screening for malignant neoplasm of prostate; M79.672 Pain in left foot; R21 Rash and other nonspecific skin eruption
CPT/HCPCS: 36415; 80053; 80061; 82043; 82570; 83036; 83721; 84153; 84443; 84550; 85025; 86592

== ENCOUNTER 2024-01-20 15:06 | Outpatient (CLI) | payer MEDICAID ==
--- NOTE | 2024-01-20 19:30 | Ultrasound Report ---
PROCEDURE: Abdomen Limited INDICATIONS: LOW BACK MASS TECHNIQUE: Real-time focused scanning was performed of the lower back, with image documentation. COMPARISONS: CT abdomen pelvis 04/28/2022 FINDINGS: Focal area within the subcutaneous fat with isoechogenicity measuring 5.8 x 4.3 x 5.4 cm. No increase d vascularity. IMPRESSION: Focal mass suggestive of lipoma. Reviewed by: Amaris Ash MD on 01/20/2024 7:28 PM PDT Approved by: Amaris Ash MD on 01/20/2024 7:28 PM PDT Station ID: [id number]
== END 2024-01-20 15:07 | disposition home or self-care (01) ==
LOC: DI 15:06
PROVIDERS: ATTEND Physician Assistant
DX: R22.2 Localized swelling, mass and lump, trunk (principal)